=== PATIENT | female | born 1950 | race Caucasian/White ===

== ENCOUNTER → 2017-02-26 | Outpatient (CLI) | payer MEDICARE, OTHER ==
[~2017-02-26] MED LIST: OMEP20CA74 OR; ROSU5TAB5
[2017-02-26 08:43] LABS: Basophils # (auto) 0 uL; Basophils % (auto) 0.4 % (0.0-2.0); CONDITION Y; Eosinophils # (auto) 0.1 uL; Eosinophils % (auto) 2.8 % (0.0-7.0); Hematocrit 38.6 % (36.0-46.0); Hemoglobin 13.1 g/dL (12.2-16.2); Lymphocytes % (auto) 39.8 % (10.0-50.0); Mean Corpuscular Hemoglobin 32.4 pg (28.0-32.0); Mean Corpuscular Volume 95.1 fL (80.0-100.0); Mean Platelet Volume 9.5 fL (7.4-10.4); Monocytes # (auto) 0.4 uL; Monocytes % (auto) 8.6 % (0.0-12.0); Neutrophils # (auto) 2.5 uL; Neutrophils % (auto) 48.4 % (37.0-80.0); Platelet Count (auto) 217 10^3/uL (140-450); Red Cell Distribution Width 13.1 % (11.6-16.0); White Blood Cell 5.1 10^3/uL (4.4-10.8)
[2017-02-26 08:47] LABS: Urine Bilirubin Negative (Negative); Urine Color Yellow (Yellow); Urine Glucose Normal (Normal); Urine Ketone Negative (Negative); Urine Nitrite Negative (Negative); Urine RBC <1 /hpf (0 - 4); Urine Squamous Epithelial Cell FEW /hpf (<5); Urine Urobilinogen Normal (Negative)
[2017-02-26 08:48] LABS: Urine Blood 1+ /uL (Negative)
[2017-02-26 09:06] LABS: Albumin 3.7 g/dL (3.4-5.0); BUN/Creatinine Ratio 22.5; Bilirubin, Total 0.7 mg/dL (0.2-1.0); Potassium 3.8 mmol/L (3.5-5.1); Total Protein 7.2 g/dL (6.4-8.2)
== END | disposition home or self-care (01) ==
LOC: LAB 07:52
PROVIDERS: ATTEND Internal Medicine
DX: Z00.00 Encounter for general adult medical examination without abnormal findings (principal); I10 Essential (primary) hypertension; E78.2 Mixed hyperlipidemia; E55.9 Vitamin D deficiency, unspecified
CPT/HCPCS: 36415; 80053; 80061; 81001; 82306; 84443; 85025

== ENCOUNTER → 2018-01-25 | Outpatient (CLI) | payer MEDICARE, OTHER ==
[2018-01-25 09:31] LABS: Basophils # (auto) 0.1 uL; Basophils % (auto) 1.2 % (0.0-2.0); Eosinophils # (auto) 0.2 uL; Hematocrit 39.6 % (36.0-46.0); Hemoglobin 13.5 g/dL (12.2-16.2); Lymphocytes # (auto) 2.1 uL; Lymphocytes % (auto) 36.7 % (10.0-50.0); Monocytes # (auto) 0.6 uL; Monocytes % (auto) 10.4 % (0.0-12.0); Neutrophils # (auto) 2.8 uL; Neutrophils % (auto) 48.7 % (37.0-80.0); Nucleated Red Blood Cells % 0.1 %; Platelet Count (auto) 233 10^3/uL (140-450); Red Blood Cells 4.09 10^6/uL (4.0-5.20); Red Cell Distribution Width 12.7 % (11.8-14.3); White Blood Cell 5.8 10^3/uL (4.4-10.8)
[2018-01-25 10:23] LABS: Albumin 3.7 g/dL (3.4-5.0); BUN/Creatinine Ratio 18.7; Bilirubin, Total 0.5 mg/dL (0.2-1.0); Calcium 9.3 mg/dL (8.5-10.1); Potassium 4.3 mmol/L (3.5-5.1); Total Protein 7.3 g/dL (6.4-8.2)
== END | disposition home or self-care (01) ==
LOC: LAB 08:27
PROVIDERS: ATTEND Physician Assistant
DX: E78.00 Pure hypercholesterolemia, unspecified (principal); M41.115 Juvenile idiopathic scoliosis, thoracolumbar region; N18.3 Chronic kidney disease, stage 3 (moderate); M79.605 Pain in left leg
CPT/HCPCS: 36415; 80053; 80061; 85025

== ENCOUNTER → 2019-02-01 | Outpatient (CLI) | payer MEDICARE, OTHER ==
[2019-02-01 09:30] LABS: Basophils # (auto) 0 uL; Basophils % (auto) 1.1 % (0.0-2.0); Eosinophils # (auto) 0.1 uL; Eosinophils % (auto) 3.2 % (0.0-7.0); Hemoglobin 13.3 g/dL (12.2-16.2); Lymphocytes # (auto) 1.3 uL; Mean Corpuscular Hemoglobin 32.7 pg (28.0-32.0); Mean Corpuscular Volume 96.1 fL (80.0-100.0); Monocytes # (auto) 0.4 uL; Monocytes % (auto) 9.3 % (0.0-12.0); Neutrophils # (auto) 2.3 uL; Neutrophils % (auto) 54.4 % (37.0-80.0); Nucleated Red Blood Cells % 0.1 %; Platelet Count (auto) 227 10^3/uL (140-450); Red Blood Cells 4.06 10^6/uL (4.0-5.20); Red Cell Distribution Width 13.1 % (11.8-14.3); White Blood Cell 4.2 10^3/uL (4.4-10.8)
[2019-02-01 10:01] LABS: Albumin 3.9 g/dL (3.4-5.0); BUN/Creatinine Ratio 16.1; Bilirubin, Total 0.7 mg/dL (0.2-1.0); Calcium 9.3 mg/dL (8.5-10.1); Total Protein 7.5 g/dL (6.4-8.2)
== END | disposition home or self-care (01) ==
LOC: LAB 08:12
PROVIDERS: ATTEND Physician Assistant
DX: E78.00 Pure hypercholesterolemia, unspecified (principal); I12.9 Hypertensive chronic kidney disease with stage 1 through stage 4 chronic kidney disease, or unspecified chronic kidney disease; N18.3 Chronic kidney disease, stage 3 (moderate)
CPT/HCPCS: 36415; 80053; 80061; 85025

== ENCOUNTER 2019-02-28 08:42 | Day surgery (SDC) | payer MEDICARE, OTHER ==
[2019-02-24 10:50] LABS: Basophils # (auto) 0 uL; Basophils % (auto) 1.1 % (0.0-2.0); Eosinophils # (auto) 0.1 uL; Eosinophils % (auto) 2.4 % (0.0-7.0); Hematocrit 40.4 % (36.0-46.0); Hemoglobin 13.7 g/dL (12.2-16.2); Lymphocytes # (auto) 1.2 uL; Lymphocytes % (auto) 27.6 % (10.0-50.0); Mean Corpuscular Hemoglobin 32.8 pg (28.0-32.0); Mean Corpuscular Volume 96.6 fL (80.0-100.0); Monocytes # (auto) 0.4 uL; Monocytes % (auto) 8.4 % (0.0-12.0); Neutrophils # (auto) 2.7 uL; Neutrophils % (auto) 60.5 % (37.0-80.0); Nucleated Red Blood Cells % 0.1 %; Platelet Count (auto) 212 10^3/uL (140-450); Red Blood Cells 4.18 10^6/uL (4.0-5.20); White Blood Cell 4.4 10^3/uL (4.4-10.8)
[2019-02-24 11:03] LABS: INR 1.01 (0.9-1.15); Partial Thromboplastin Time 27.3 sec (23.64-32.05)
[~2019-02-28] VITALS: Ht 167.6 cm; Wt 72.1 kg
[~2019-02-28 08:42] MED LIST changes: -ROSU5TAB5; +ROSU5TAB5 PO
[2019-02-28] MEDS ORDERED: LIDOCAINE VISCOUS 2% 15ML UD ONE (08:46)
[2019-02-28] MEDS ORDERED: SODIUM CHLORIDE LOCK 10 ML ONE (08:46)
[2019-02-28] MEDS ORDERED: diphenhdrAMINE HCL 50 MG/1 ML VL ONE (08:46)
[2019-02-28] MEDS: MIDAZOLAM HCL 5 MG/ML-1ML VIAL ONE ×2 (10:29→10:32)
[2019-02-28] MEDS: fentaNYL CITRATE 100 MCG/2 ML VL ONE ×2 (10:29→10:32)
[2019-02-28 11:06] VITALS: BP 113/69
== END 2019-02-28 11:24 | disposition home or self-care (01) ==
LOC: GI 08:42
PROVIDERS: ATTEND Internal Medicine Gastroenterology
DX: K29.50 Unspecified chronic gastritis without bleeding (principal); K29.80 Duodenitis without bleeding; K21.0 Gastro-esophageal reflux disease with esophagitis; E78.00 Pure hypercholesterolemia, unspecified; E78.5 Hyperlipidemia, unspecified; Z85.89 Personal history of malignant neoplasm of other organs and systems; Z98.890 Other specified postprocedural states; Z88.8 Allergy status to other drugs, medicaments and biological substances; Z79.899 Other long term (current) drug therapy; Z78.0 Asymptomatic menopausal state
CPT/HCPCS: 36415; 43239; 43450; 85025; 85610; 85730; 88305; 88342; J2250; J3010; J7030

== ENCOUNTER 2019-09-09 17:19 | Emergency (ER) | payer MEDICARE, OTHER ==
[~2019-09-09] VITALS: Ht 167.6 cm; Wt 72.6 kg
[2019-09-09 17:30] VITALS: BP 151/77
[2019-09-09] MEDS ORDERED: FLUORESCEIN SOD 1 MG TEST STRIP LEFTEYE ONE (21:00)
[2019-09-09] MEDS ORDERED: TETRACAINE HCL 0.5% OPTH(EYE) SOLN 4ML EACHEYE ONE (21:00)
[2019-09-09] MEDS ORDERED: FLUORESCEIN SOD 1 MG TEST STRIP RIGHTEYE ONE (21:00)
== END 2019-09-09 21:19 | disposition home or self-care (01) ==
LOC: ER 17:28
DX: H43.392 Other vitreous opacities, left eye (principal); H43.812 Vitreous degeneration, left eye; H11.002 Unspecified pterygium of left eye; Z88.8 Allergy status to other drugs, medicaments and biological substances; Z79.899 Other long term (current) drug therapy

== ENCOUNTER → 2019-10-20 | Outpatient (CLI) | payer MEDICARE, OTHER ==
[2019-10-20 09:48] LABS: Basophils # (auto) 0.1 uL; Basophils % (auto) 1.4 % (0.0-2.0); Eosinophils # (auto) 0.2 uL; Eosinophils % (auto) 3.9 % (0.0-7.0); Hematocrit 40.3 % (36.0-46.0); Hemoglobin 13.6 g/dL (12.2-16.2); Lymphocytes # (auto) 1.3 uL; Lymphocytes % (auto) 26.7 % (10.0-50.0); Mean Corpuscular Hemoglobin 32.6 pg (28.0-32.0); Mean Corpuscular Hgb Conc. 33.8 g/dL (32.0-36.0); Mean Corpuscular Volume 96.4 fL (80.0-100.0); Monocytes # (auto) 0.5 uL; Monocytes % (auto) 10.6 % (0.0-12.0); Neutrophils # (auto) 2.9 uL; Neutrophils % (auto) 57.4 % (37.0-80.0); Nucleated Red Blood Cells % 0.1 %; Platelet Count (auto) 231 10^3/uL (140-450); Red Blood Cells 4.18 10^6/uL (4.0-5.20); Red Cell Distribution Width 12.8 % (11.8-14.3)
[2019-10-20 10:29] LABS: Albumin 3.9 g/dL (3.4-5.0); Calcium 9.5 mg/dL (8.5-10.1); Potassium 3.9 mmol/L (3.5-5.1)
[2019-10-20 10:34] LABS: BUN/Creatinine Ratio 19.8; Bilirubin, Total 0.6 mg/dL (0.2-1.0); Total Protein 7.6 g/dL (6.4-8.2)
== END | disposition home or self-care (01) ==
LOC: LAB 09:33
PROVIDERS: ATTEND Internal Medicine
DX: C50.912 Malignant neoplasm of unspecified site of left female breast (principal)
CPT/HCPCS: 36415; 80053; 83615; 85025; 86300

== ENCOUNTER → 2019-11-21 | Outpatient (CLI) | payer MEDICARE, OTHER ==
[~2019-11-21] VITALS: Ht 167.6 cm; Wt 76.2 kg
[~2019-11-21] MED LIST changes: +PANT40TA2 PO
== END | disposition home or self-care (01) ==
LOC: Rad HDHVI 08:36
PROVIDERS: ATTEND Internal Medicine Cardiovascular Disease
DX: Z01.810 Encounter for preprocedural cardiovascular examination (principal); E78.00 Pure hypercholesterolemia, unspecified; R07.9 Chest pain, unspecified; R00.2 Palpitations
CPT/HCPCS: 78452; 93017; 93306; 96374; A9500

== ENCOUNTER 2019-11-30 06:14 | Inpatient (IN) | payer MEDICARE, OTHER ==
[2019-11-28 09:46] LABS: Basophils # (auto) 0.1 10 ^3/uL (0-0.2); Basophils % (auto) 1.2 % (0.0-2.0); Eosinophils # (auto) 0.1 10 ^3/uL (0-0.8); Eosinophils % (auto) 2.5 % (0.0-7.0); Hematocrit 43.7 % (36.0-46.0); Hemoglobin 14.7 g/dL (12.2-16.2); Lymphocytes # (auto) 1.3 10 ^3/uL (0.4-5.4); Lymphocytes % (auto) 21.4 % (10.0-50.0); Mean Corpuscular Hemoglobin 32.3 pg (28.0-32.0); Mean Corpuscular Hgb Conc. 33.6 g/dL (32.0-36.0); Mean Corpuscular Volume 96.3 fL (80.0-100.0); Monocytes # (auto) 0.6 10 ^3/uL (0-1.3); Monocytes % (auto) 10.5 % (0.0-12.0); Neutrophils # (auto) 3.9 10 ^3/uL (1.6-8.6); Neutrophils % (auto) 64.4 % (37.0-80.0); Nucleated Red Blood Cells % 0.1 %; Platelet Count (auto) 256 10^3/uL (140-450); Red Blood Cells 4.53 10^6/uL (4.0-5.20); Red Cell Distribution Width 12.6 % (11.8-14.3)
[2019-11-28 09:50] LABS: Urine Bacteria NONE SEEN /hpf (None Seen); Urine Blood TRACE /uL (Negative); Urine Specific Gravity 1.003 (1.001-1.035); Urine WBC 1 /hpf (0 - 5)
[2019-11-28 09:57] LABS: Potassium 3.8 mmol/L (3.5-5.1)
[2019-11-28 10:05] LABS: Bilirubin, Total 0.8 mg/dL (0.2-1.0); Calcium 9.5 mg/dL (8.5-10.1); INR 1.14 (0.9-1.15); Partial Thromboplastin Time 29.3 sec (23.64-32.05)
[~2019-11-30] VITALS: Ht 167.6 cm; Wt 74.1 kg
[~2019-11-30 06:14] MED LIST changes: -OMEP20CA74 OR
[2019-11-30] MEDS ORDERED: ceFAZolin 1GM/50ML 50 ML IV ONE (06:30)
[2019-11-30] MEDS ORDERED: LIDOCAINE 1% HCL (LOCAL ANESTH.) INJ 20ML MDV ONE (07:08)
[2019-11-30] MEDS ORDERED: HYDROmorphone HCL 2 MG/ML VL ONE (07:12)
[2019-11-30] MEDS ORDERED: fentaNYL CITRATE 5 ML ONE (07:12)
[2019-11-30] MEDS ORDERED: fentaNYL CITRATE 100 MCG/2 ML VL ONE (07:12)
[2019-11-30] MEDS ORDERED: ONDANSETRON HCL 4 MG/2 ML VIAL ONE (07:13)
[2019-11-30] MEDS ORDERED: PROPOFOL 10 MG/ML 20 ML IV ONE (07:13)
[2019-11-30] MEDS ORDERED: SODIUM CHLORIDE LOCK 10 ML ONE (07:13)
[2019-11-30] MEDS ORDERED: ROCURONIUM 10MG/ML 10ML VIAL IV ONE (07:13)
[2019-11-30] MEDS ORDERED: MIDAZOLAM HCL 1MG/1ML-2 ML VIAL ONE (07:13)
[2019-11-30] MEDS ORDERED: HYDROmorphone HCL 2 MG/ML VL IV PRN ×2 (07:45→10:00)
[2019-11-30] MEDS ORDERED: MORPHINE SULFATE 4 MG/ML SYR/VIAL IV PRN (07:45)
[2019-11-30] MEDS ORDERED: fentaNYL CITRATE 100 MCG/2 ML VL IV PRN (07:45)
[2019-11-30] MEDS ORDERED: DOXAPRAM HCL 20 MG/ML 20ML VIAL INJ IV ONE (08:19)
[2019-11-30] MEDS ORDERED: POVIDONE IODINE 10 % TOPICAL OINT 30GM TOP ONE (09:06)
[2019-11-30] MEDS ORDERED: KETOROLAC TROMETH 15 mg/ml 1ML VL IV PRN (10:00)
--- NOTE | 2019-11-30 11:52 | NUR ---
RECEIVED REPORT FROM PACU. ROOM MADE READY.
--- NOTE | 2019-11-30 12:10 | NUR ---
RECEIVED PT IN TO ROOM 280B EASY TO AROUSE WHEN CHECKING DRESSING AND 4 TANYA DRAINS AND RETURNS TO RESTING WITH EYES CLOSED. DENIES ANY PAIN. FACE FREE OF ANY GRIMACE OR BROW FURROWING. B/P CUFF TO LEFT LOWER LEG. SCANT DRAINAGE TO TANYA DRAINS. ALCIDES WRAP AROUND CHEST. RESPIRATIONS EVEN UNLABORED.
[2019-11-30] MEDS: ONDANSETRON HCL 4 MG/2 ML VIAL IV PRN ×2 (13:59→19:00)
[2019-11-30] MEDS: D5W/SOD CHL 0.45%/KCL 20MEQ 1,000 ML IV SCH ×2 (14:00→20:00)
[2019-11-30] MEDS: ceFAZolin 1GM/50ML 50 ML IV SCH ×2 (14:20→22:04)
--- NOTE | 2019-11-30 15:10 | NUR ---
TANYA DRAINS X4 YIELDS SCANT. MEDICATED FOR NAUSEA WITH PRN ZOFRAN. MEDICATED WITH PRN IV DILAUDID TO CONTROL PAIN. IV FLUIDS HAVE BEEN INITIATED. IVPB ANCEF INFUSED ORDERED.
[2019-11-30 16:58] VITALS: BP 117/57
[2019-11-30 18:50] VITALS: BP 149/66
--- NOTE | 2019-11-30 19:00 | NUR ---
FULLY AWAKE. DENIES DISCOMFORT. C/O NAUSEA AFTER ATTEMPTING TO TAKE IN CLEAR LIQUID TRAY. MEDICATED WITH PRN ZOFRAN. TANYA DRAINS SECURED WITH SILK TAPE TO SKIN. SEQUENTIAL LEG COMPRESSORS REMOVED. STAND BY ASSIST PROVIDED ON FIRST AMBULATION TO BR. VOIDS. STABLE ON HER FEET. DISPLAYS GOOD COORDINATION. IS PROVIDED AND DEMONSTRATES USE. IV FLUIDS VIA PUMP CONTINUED. DR. REED CALLS. UPDATE GIVEN. PT HAS APPROPRIATE ORDERS FOR THIS EVENING. HE STATES WILL ROUND ON HER TOMORROW.
--- NOTE | 2019-11-30 19:55 | NUR ---
Opening Shift Note Assumed care of patient, awake and alert. No S/S of distress/SOB . patient 5/10 at a tolerable level. informed patient of pain medications available patient refused. Patient has favian wrap to upper torso dressing is Clean dry and intact. patient has 4 bertin drains that were not drained by dayshift rn. first drain 30ml, second drain 10ml, third drain 10ml, 4 drain has 30ml. SCD applied. Instructed on POC and to call for assist PRN, will continue to monitor for changes Q1hr and PRN. bed in low position and call light within reach.
[2019-11-30 22:00] VITALS: BP 136/66
--- NOTE | 2019-11-30 22:04 | NUR ---
patient educated on how to use IS patient verbalized understanding and was able to demonstrate.
[2019-12-01 05:00] VITALS: BP 143/66
[2019-12-01] MEDS: D5W/SOD CHL 0.45%/KCL 20MEQ 1,000 ML IV SCH (06:06)
--- NOTE | 2019-12-01 06:22 | NUR ---
bertin drain 1# 10ml 2# 5ml 3#5ml 4#20
[2019-12-01] MEDS: ceFAZolin 1GM/50ML 50 ML IV SCH ×2 (06:31→14:04)
--- NOTE | 2019-12-01 07:04 | NUR ---
SBAR REPORT GIVEN TO DAYSHIFT RN. PATIENT DRESSING IS CLEAN DRY AND INTACT. PATIENT TANYA DRAINS ALL INTACT. SEE I/O FOR TANYA DRAIN OUTPUT. PATIENT IV PATENT AND RUNNING ABX SCHEDULED, REPORTS NO PAIN TO IV SITE. BED IN LOW POSITION AND CALL LIGHT WITHIN REACH. DENIES SOB DISTRESS OR PAIN AT THE MOMENT.
[2019-12-01 09:23] VITALS: BP 147/72
[2019-12-01 12:20] VITALS: BP 145/64
--- NOTE | 2019-12-01 15:08 | NUR ---
TANYA DRAIN EDUCATION EDUCATED PATIENT ON EMPTYING TANYA DRAINS, AND TO MONITOR FLUID PER DRAIN. PATIENT VERBALIZED UNDERSTANDING AND RETURNED DEMONSTRATION. ALL QUESTIONS AND CONCERNS ANSWERED. EMPTIED TANYA DRAIN #1- 10ML SANGUINOUS FLUID #2- 15ML SANGUINOUS FLUID #3- 8ML SANGUINOUS FLUID #4- 8ML SANGUINOUS FLUIDS PATIENT TOLERATED WELL
[2019-12-01 16:43] VITALS: BP 160/71
== END 2019-12-01 17:15 | disposition home or self-care (01) | DRG 581 ==
LOC: SUR 06:14 → TELE-WESTW 12:12 → WEST WING 12-01 04:17
PROVIDERS: ADMIT Surgery; ATTEND Internal Medicine
PROC: 07B60ZZ Excision of Left Axillary Lymphatic, Open Approach (ICD-10-PCS; 2019-11-30)
PROC: 0HBT0ZZ Excision of Right Breast, Open Approach (ICD-10-PCS; 2019-11-30)
PROC: 0HTV0ZZ Resection of Bilateral Breast, Open Approach (ICD-10-PCS; principal; 2019-11-30 07:58)
DX: C50.912 Malignant neoplasm of unspecified site of left female breast (principal); E78.5 Hyperlipidemia, unspecified; K21.9 Gastro-esophageal reflux disease without esophagitis; Z79.899 Other long term (current) drug therapy
CPT/HCPCS: 36415; 80053; 81001; 85025; 85610; 85730; 86850; 86900; 86901; G0378; J0690; J2001; J2250; J2405; J2704

== ENCOUNTER → 2020-03-28 | Outpatient (CLI) | payer MEDICARE, OTHER ==
[2020-03-28 09:12] LABS: Basophils # (auto) 0.1 10 ^3/uL (0-0.2); Basophils % (auto) 1.3 % (0.0-2.0); Eosinophils # (auto) 0.2 10 ^3/uL (0-0.8); Hemoglobin 13.7 g/dL (12.2-16.2); Lymphocytes # (auto) 1.7 10 ^3/uL (0.4-5.4); Lymphocytes % (auto) 31.8 % (10.0-50.0); Mean Corpuscular Hemoglobin 31.7 pg (28.0-32.0); Mean Corpuscular Hgb Conc. 33.4 g/dL (32.0-36.0); Monocytes # (auto) 0.5 10 ^3/uL (0-1.3); Monocytes % (auto) 9.6 % (0.0-12.0); Neutrophils % (auto) 54.3 % (37.0-80.0); Nucleated Red Blood Cells % 0.1 %; Platelet Count (auto) 254 10^3/uL (140-450); Red Blood Cells 4.32 10^6/uL (4.0-5.20); Red Cell Distribution Width 13.7 % (11.8-14.3); White Blood Cell 5.5 10^3/uL (4.4-10.8)
[2020-03-28 10:42] LABS: Albumin 3.9 g/dL (3.4-5.0); Calcium 9.9 mg/dL (8.5-10.1)
[2020-03-28 10:46] LABS: BUN/Creatinine Ratio 15.3; Bilirubin, Total 0.5 mg/dL (0.2-1.0); Total Protein 7.8 g/dL (6.4-8.2)
== END | disposition home or self-care (01) ==
LOC: LAB 09:00
PROVIDERS: ATTEND Internal Medicine
DX: Z51.11 Encounter for antineoplastic chemotherapy (principal); C50.919 Malignant neoplasm of unspecified site of unspecified female breast
CPT/HCPCS: 36415; 80053; 83615; 85025; 86300

== ENCOUNTER → 2020-06-22 | Outpatient (CLI) | payer MEDICARE, OTHER ==
[2020-06-22 09:44] LABS: Basophils # (auto) 0.1 10 ^3/uL (0-0.2); Basophils % (auto) 1.3 % (0.0-2.0); Eosinophils # (auto) 0.1 10 ^3/uL (0-0.8); Eosinophils % (auto) 3.1 % (0.0-7.0); Hematocrit 38.4 % (36.0-46.0); Hemoglobin 13.1 g/dL (12.2-16.2); Lymphocytes # (auto) 1.5 10 ^3/uL (0.4-5.4); Lymphocytes % (auto) 32.5 % (10.0-50.0); Mean Corpuscular Hemoglobin 32.6 pg (28.0-32.0); Monocytes # (auto) 0.5 10 ^3/uL (0-1.3); Monocytes % (auto) 11.2 % (0.0-12.0); Neutrophils # (auto) 2.3 10 ^3/uL (1.6-8.6); Neutrophils % (auto) 51.9 % (37.0-80.0); Platelet Count (auto) 223 10^3/uL (140-450); White Blood Cell 4.5 10^3/uL (4.4-10.8)
[2020-06-22 09:55] LABS: Albumin 3.8 g/dL (3.4-5.0); Calcium 9.1 mg/dL (8.5-10.1)
[2020-06-22 09:59] LABS: Bilirubin, Total 0.7 mg/dL (0.2-1.0); Total Protein 7.3 g/dL (6.4-8.2)
== END | disposition home or self-care (01) ==
LOC: LAB 09:17
PROVIDERS: ATTEND Internal Medicine
DX: Z51.11 Encounter for antineoplastic chemotherapy (principal); C50.919 Malignant neoplasm of unspecified site of unspecified female breast
CPT/HCPCS: 36415; 80053; 83615; 85025; 86300

== ENCOUNTER → 2020-09-12 | Outpatient (CLI) | payer MEDICARE, OTHER ==
[2020-09-12 10:24] LABS: Basophils # (auto) 0.1 10 ^3/uL (0-0.2); Basophils % (auto) 1.5 % (0.0-2.0); Eosinophils # (auto) 0.2 10 ^3/uL (0-0.8); Eosinophils % (auto) 3.3 % (0.0-7.0); Hematocrit 38.7 % (36.0-46.0); Hemoglobin 13.3 g/dL (12.2-16.2); Lymphocytes # (auto) 1.5 10 ^3/uL (0.4-5.4); Lymphocytes % (auto) 29.5 % (10.0-50.0); Mean Corpuscular Hemoglobin 33.1 pg (28.0-32.0); Mean Corpuscular Hgb Conc. 34.2 g/dL (32.0-36.0); Mean Corpuscular Volume 96.8 fL (80.0-100.0); Monocytes # (auto) 0.5 10 ^3/uL (0-1.3); Monocytes % (auto) 9.5 % (0.0-12.0); Neutrophils # (auto) 2.9 10 ^3/uL (1.6-8.6); Neutrophils % (auto) 56.2 % (37.0-80.0); Platelet Count (auto) 248 10^3/uL (140-450); Red Cell Distribution Width 12.7 % (11.8-14.3); White Blood Cell 5.1 10^3/uL (4.4-10.8)
[2020-09-12 11:08] LABS: Potassium 3.8 mmol/L (3.5-5.1)
[2020-09-12 11:22] LABS: Albumin 3.9 g/dL (3.4-5.0); BUN/Creatinine Ratio 11.2; Bilirubin, Total 0.6 mg/dL (0.2-1.0); Calcium 9.4 mg/dL (8.5-10.1); Total Protein 7.6 g/dL (6.4-8.2)
== END | disposition home or self-care (01) ==
LOC: LAB 10:05
PROVIDERS: ATTEND Internal Medicine
DX: Z51.11 Encounter for antineoplastic chemotherapy (principal); C50.919 Malignant neoplasm of unspecified site of unspecified female breast; N18.30 Chronic kidney disease, stage 3 unspecified; E78.00 Pure hypercholesterolemia, unspecified; K21.9 Gastro-esophageal reflux disease without esophagitis; R13.10 Dysphagia, unspecified
CPT/HCPCS: 36415; 80053; 80061; 83615; 85025; 86300

== ENCOUNTER → 2021-03-14 | Outpatient (CLI) | payer MEDICARE, OTHER ==
[2021-03-14 16:24] LABS: Basophils # (auto) 0.1 10 ^3/uL (0-0.2); Eosinophils # (auto) 0.1 10 ^3/uL (0-0.8); Eosinophils % (auto) 2.9 % (0.0-7.0); Hemoglobin 12.8 g/dL (12.2-16.2); Lymphocytes # (auto) 1.2 10 ^3/uL (0.4-5.4); Lymphocytes % (auto) 28.9 % (10.0-50.0); Mean Corpuscular Hgb Conc. 35.6 g/dL (32.0-36.0); Mean Corpuscular Volume 95.6 fL (80.0-100.0); Monocytes # (auto) 0.5 10 ^3/uL (0-1.3); Neutrophils # (auto) 2.2 10 ^3/uL (1.6-8.6); Neutrophils % (auto) 53.2 % (37.0-80.0); Red Blood Cells 3.77 10^6/uL (4.0-5.20); Red Cell Distribution Width 13.3 % (11.8-14.3); White Blood Cell 4.2 10^3/uL (4.4-10.8)
[2021-03-14 17:40] LABS: Albumin 3.7 g/dL (3.4-5.0); Calcium 8.8 mg/dL (8.5-10.1)
[2021-03-14 17:47] LABS: BUN/Creatinine Ratio 18.8; Bilirubin, Total 0.4 mg/dL (0.2-1.0); Total Protein 7.2 g/dL (6.4-8.2)
== END | disposition home or self-care (01) ==
LOC: LAB 16:08
PROVIDERS: ATTEND Internal Medicine
DX: Z51.11 Encounter for antineoplastic chemotherapy (principal); C50.919 Malignant neoplasm of unspecified site of unspecified female breast
CPT/HCPCS: 36415; 80053; 83615; 85025; 85049; 86300; 86304

== ENCOUNTER → 2021-04-24 | Outpatient (CLI) | payer MEDICARE, OTHER ==
[2021-04-24 16:00] LABS: Basophils # (auto) 0 10 ^3/uL (0-0.2); Basophils % (auto) 0.7 % (0.0-2.0); Eosinophils # (auto) 0.1 10 ^3/uL (0-0.8); Hematocrit 38.1 % (36.0-46.0); Hemoglobin 13.4 g/dL (12.2-16.2); Lymphocytes # (auto) 1.3 10 ^3/uL (0.4-5.4); Lymphocytes % (auto) 21.7 % (10.0-50.0); Mean Corpuscular Hemoglobin 33.6 pg (28.0-32.0); Mean Corpuscular Hgb Conc. 35.2 g/dL (32.0-36.0); Mean Corpuscular Volume 95.6 fL (80.0-100.0); Monocytes # (auto) 0.5 10 ^3/uL (0-1.3); Monocytes % (auto) 8.1 % (0.0-12.0); Neutrophils # (auto) 4.2 10 ^3/uL (1.6-8.6); Neutrophils % (auto) 67.5 % (37.0-80.0); Red Blood Cells 3.98 10^6/uL (4.0-5.20); White Blood Cell 6.2 10^3/uL (4.4-10.8)
[2021-04-24 16:36] LABS: Albumin 3.6 g/dL (3.4-5.0); Amylase 24 U/L (25-115); Anion Gap 7 (5-15); Blood Urea Nitrogen 15 mg/dL (7-18); Calcium 9.4 mg/dL (8.5-10.1); Carbon Dioxide 26 mmol/L (21-32); Chloride 108 mmol/L (98-107); Glucose 114 mg/dL (74-106); Lipase 117 U/L (73-393); Potassium 3.7 mmol/L (3.5-5.1); Sodium 141 mmol/L (136-145)
[2021-04-24 16:40] LABS: Alanine Aminotransferase 38 U/L (13-56); Alkaline Phosphatase 100 U/L (45-117); Aspartate Aminotransferase 25 U/L (15-37); BUN/Creatinine Ratio 15.2; Bilirubin, Direct < 0.1 mg/dL (0-0.2); Bilirubin, Total 0.4 mg/dL (0.2-1.0); GFR African American 71 mL/min; GFR Non-African American 58 mL/min; Total Protein 7.5 g/dL (6.4-8.2)
[2021-04-25 11:07] LABS: Hepatitis A Ab IgM Negative
[2021-04-25 11:24] LABS: Hepatitis B Surface Antigen Negative (Negative)
[2021-04-25 11:35] LABS: Hepatitis B Core IgM Negative
[2021-04-25 12:10] LABS: Hepatitis C Antibody Negative (Negative)
== END | disposition home or self-care (01) ==
LOC: LAB 15:36
PROVIDERS: ATTEND Nurse Practitioner Family
DX: R74.8 Abnormal levels of other serum enzymes (principal)
CPT/HCPCS: 36415; 80053; 80076; 82150; 83690; 85025; 86705; 86709; 86803; 87340

== ENCOUNTER 2021-08-30 12:05 | Inpatient (IN) | payer MEDICARE, OTHER ==
[~2021-08-30] VITALS: Ht 167.6 cm; Wt 80.8 kg
[2021-08-30 13:16] LABS: Basophils # (auto) 0.1 10 ^3/uL (0-0.2); Basophils % (auto) 2.3 % (0.0-2.0); Eosinophils # (auto) 0.2 10 ^3/uL (0-0.8); Eosinophils % (auto) 3.2 % (0.0-7.0); Hematocrit 38.1 % (36.0-46.0); Hemoglobin 12.7 g/dL (12.2-16.2); Lymphocytes # (auto) 1.3 10 ^3/uL (0.4-5.4); Mean Corpuscular Hemoglobin 32.1 pg (28.0-32.0); Mean Corpuscular Hgb Conc. 33.5 g/dL (32.0-36.0); Mean Corpuscular Volume 95.9 fL (80.0-100.0); Monocytes # (auto) 0.4 10 ^3/uL (0-1.3); Monocytes % (auto) 7.2 % (0.0-12.0); Neutrophils # (auto) 3.8 10 ^3/uL (1.6-8.6); Neutrophils % (auto) 65.3 % (37.0-80.0); Nucleated Red Blood Cells % 0.1 %; Red Blood Cells 3.97 10^6/uL (4.0-5.20); White Blood Cell 5.9 10^3/uL (4.4-10.8)
[2021-08-30 13:33] LABS: Albumin 3.6 g/dL (3.4-5.0); Calcium 9.5 mg/dL (8.5-10.1); Magnesium 2.6 mg/dL (1.6-2.6); Potassium 3.4 mmol/L (3.5-5.1)
[2021-08-30 13:40] LABS: BUN/Creatinine Ratio 14.2; Bilirubin, Total 0.4 mg/dL (0.2-1.0); Total Protein 7.5 g/dL (6.4-8.2)
[2021-08-30] MEDS ORDERED: NITROGLYCERIN 0.4 MG SL TAB SL ONE (14:00)
[2021-08-30] MEDS ORDERED: MORPHINE SULFATE INJECTION 2 MG/ML SYRG IV PRN (15:00)
[2021-08-30] MEDS ORDERED: NITROGLYCERIN 0.4 MG SL TAB SL PRN (15:00)
[2021-08-30 17:39] VITALS: BP 122/81
[2021-08-30] MEDS ORDERED: LETR2.5T PO (18:00)
[2021-08-30 20:00] VITALS: BP 120/75
[2021-08-30] MEDS: SOD CHL 0.9%/ KCL 20MEQ 1,000 ML IV SCH (20:30)
[2021-08-30 22:00] VITALS: BP 125/75
[2021-08-30] MEDS: FAMOTIDINE (10MG/ML) 2ML VL IV SCH (23:13)
[2021-08-31] MEDS ORDERED: DOCUSATE SOD 100 MG CAP PO PRN
[2021-08-31] MEDS ORDERED: ONDANSETRON HCL 4 MG/2 ML VIAL IV PRN
[2021-08-31] MEDS ORDERED: ALUM & MAG HYDROX-SIMETH LIQ(MAALOX) 30 ML PO PRN
[2021-08-31] MEDS ORDERED: LORazepam 0.5 MG TAB PO PRN
[2021-08-31] MEDS ORDERED: LABETALOL HCL 5 MG/ML 4ML SYRINGE IV PRN
[2021-08-31] MEDS ORDERED: HYDROcodone-ACET 5/325MG TAB PO PRN
[2021-08-31] MEDS ORDERED: ACETAMINOPHEN 325 MG TAB PO PRN
[2021-08-31] MEDS ORDERED: NITROGLYCERIN 0.4 MG SL TAB SL PRN
[2021-08-31] MEDS ORDERED: MORPHINE SULFATE INJECTION 2 MG/ML SYRG IV PRN ×2
[2021-08-31 05:00] VITALS: BP 128/75
[2021-08-31 06:50] LABS: Basophils # (auto) 0 10 ^3/uL (0-0.2); Basophils % (auto) 0.9 % (0.0-2.0); Eosinophils # (auto) 0.2 10 ^3/uL (0-0.8); Eosinophils % (auto) 3.1 % (0.0-7.0); Hemoglobin 11.9 g/dL (12.2-16.2); Lymphocytes # (auto) 1.3 10 ^3/uL (0.4-5.4); Lymphocytes % (auto) 25.1 % (10.0-50.0); Mean Corpuscular Hemoglobin 32.5 pg (28.0-32.0); Mean Corpuscular Volume 95.5 fL (80.0-100.0); Monocytes # (auto) 0.5 10 ^3/uL (0-1.3); Monocytes % (auto) 10.4 % (0.0-12.0); Neutrophils % (auto) 60.5 % (37.0-80.0); Red Blood Cells 3.66 10^6/uL (4.0-5.20); Red Cell Distribution Width 14.3 % (11.8-14.3)
[2021-08-31 07:05] LABS: INR 1.08 (0.9-1.15); Partial Thromboplastin Time 26.5 sec (23.6-33.0)
[2021-08-31 07:07] LABS: Albumin 3.3 g/dL (3.4-5.0); Calcium 8.7 mg/dL (8.5-10.1); Uric Acid 5.7 mg/dL (2.6-6.0)
[2021-08-31 07:13] LABS: BUN/Creatinine Ratio 14.5; Bilirubin, Total 0.5 mg/dL (0.2-1.0); Phosphorus 2.9 mg/dL (2.5-4.90); Total Protein 6.7 g/dL (6.4-8.2)
[2021-08-31 08:50] VITALS: BP 139/76
[2021-08-31] MEDS: FAMOTIDINE (10MG/ML) 2ML VL IV SCH ×2 (09:34→22:04)
[2021-08-31] MEDS: ASPirin 81 mg TAB PO SCH (09:34)
[2021-08-31] MEDS ORDERED: NIFEdipine ER 30 MG TAB PO SCH (10:00)
[2021-08-31] MEDS ORDERED: ENOXAPARIN SOD 40 MG/0.4 ML SYRINGE SC SCH (10:00)
[2021-08-31] MEDS ORDERED: ATORVASTATIN 20 MG TAB PO ONE (10:30)
[2021-08-31 10:49] LABS: Cholesterol 178 mg/dL (< 200); HDL Cholesterol 45 mg/dL (40-59); LDL Cholesterol 116 mg/dL (< 100); Triglycerides 124 mg/dL (< 150)
[2021-08-31] MEDS ORDERED: IOHEXOL 350 MG/ML 100ML IJ ONE (10:57)
[2021-08-31 13:00] VITALS: BP 141/85
[2021-08-31] MEDS ORDERED: ENOXAPARIN SOD 40 MG/0.4 ML SYRINGE SC ONE (15:30)
[2021-08-31] MEDS: SODIUM CHLORIDE 0.9% 1,000 ML IV SCH ×2 (16:05)
[2021-08-31] MEDS: SOD CHL 0.9%/ KCL 20MEQ 1,000 ML IV SCH (16:05)
[2021-08-31 16:54] VITALS: BP 121/73
[2021-08-31 20:00] VITALS: BP 118/70
[2021-08-31 22:00] VITALS: BP 118/70
[2021-08-31] MEDS ORDERED: ATORVASTATIN 20 MG TAB PO SCH (22:00)
[2021-09-01] MEDS: ENOXAPARIN SOD 80 MG/0.8ML SYRINGE SC SCH ×2 (04:21→16:28)
[2021-09-01 05:00] VITALS: BP 141/73
[2021-09-01] MEDS: ASPirin 81 mg TAB PO SCH (08:57)
[2021-09-01] MEDS: FAMOTIDINE (10MG/ML) 2ML VL IV SCH ×2 (08:58→21:29)
[2021-09-01 09:00] VITALS: BP 127/69
[2021-09-01] MEDS: SODIUM CHLORIDE 0.9% 1,000 ML IV SCH (09:01)
[2021-09-01 10:48] VITALS: BP 127/69
[2021-09-01 13:00] VITALS: BP 138/78
[2021-09-01 17:00] VITALS: BP 138/70
[2021-09-01 22:00] VITALS: BP 138/66
[2021-09-02] MEDS: ENOXAPARIN SOD 80 MG/0.8ML SYRINGE SC SCH (03:05)
[2021-09-02 03:53] LABS: Urine Bacteria NONE SEEN /hpf (None Seen); Urine Blood TRACE /uL (Negative); Urine WBC 2 /hpf (0 - 5)
[2021-09-02 04:02] LABS: Alcohol, Urine < 3.0 mg/dL (0-10); Amphetamine Screen, Urine NEGATIVE (NEGATIVE); Barbiturate Scree,Urine NEGATIVE (NEGATIVE); Benzodiazephine Screen, Urine NEGATIVE (NEGATIVE); Cannabinoid Screen, Urine NEGATIVE (NEGATIVE); Cocaine Screen, Urine NEGATIVE (NEGATIVE); Opiate Scree,Urine NEGATIVE (NEGATIVE); Phencyclidine Screen, Urine NEGATIVE (NEGATIVE)
[2021-09-02 05:00] VITALS: BP 91/50
[2021-09-02 09:00] VITALS: BP 135/79
[2021-09-02] MEDS: ASPirin 81 mg TAB PO SCH (09:14)
[2021-09-02] MEDS: FAMOTIDINE (10MG/ML) 2ML VL IV SCH ×2 (09:14→22:00)
[2021-09-02 13:00] VITALS: BP 116/74
[2021-09-02 17:00] VITALS: BP 132/73
[2021-09-02 20:00] VITALS: BP 139/76
[2021-09-02] MEDS: APIXABAN 5 MG TAB PO SCH (23:34)
[2021-09-03 08:00] VITALS: BP 127/68
[2021-09-03 09:00] VITALS: BP 127/81
[2021-09-03] MEDS: ASPirin 81 mg TAB PO SCH (10:00)
[2021-09-03] MEDS: APIXABAN 5 MG TAB PO SCH (10:01)
[2021-09-03] MEDS: FAMOTIDINE (10MG/ML) 2ML VL IV SCH (10:01)
[2021-09-03 12:17] VITALS: BP 149/80
[2021-09-03 12:22] VITALS: BP 149/80
[2021-09-09] MEDS ORDERED: APIXABAN 5 MG TAB PO SCH (22:00)
== END 2021-09-03 14:50 | disposition home or self-care (01) | DRG 175 ==
LOC: ER 12:05 → EDBD 12:05 → TELE 14:54 → TELE-WESTW 17:07
PROVIDERS: ADMIT Hospitalist; ATTEND Family Medicine
DX: I26.99 Other pulmonary embolism without acute cor pulmonale (principal); N17.0 Acute kidney failure with tubular necrosis; E66.9 Obesity, unspecified; E78.00 Pure hypercholesterolemia, unspecified; E78.5 Hyperlipidemia, unspecified; E87.6 Hypokalemia; K21.9 Gastro-esophageal reflux disease without esophagitis; K29.70 Gastritis, unspecified, without bleeding; Z20.822 Contact with and (suspected) exposure to COVID-19; R91.1 Solitary pulmonary nodule; I12.9 Hypertensive chronic kidney disease with stage 1 through stage 4 chronic kidney disease, or unspecified chronic kidney disease; N18.31 Chronic kidney disease, stage 3a; Z68.28 Body mass index [BMI] 28.0-28.9, adult; Z80.0 Family history of malignant neoplasm of digestive organs; Z83.3 Family history of diabetes mellitus; Z85.3 Personal history of malignant neoplasm of breast; Z86.16 Personal history of COVID-19; Z90.13 Acquired absence of bilateral breasts and nipples; Z79.899 Other long term (current) drug therapy
CPT/HCPCS: 36415; 71045; 71275; 80053; 80061; 80307; 81001; 82306; 82607; 83036; 83735; 83880; 84100; 84443; 84484; 84550; 85025; 85379; 85610; 85730; 87040; 87086; 87426; 93005; 93306; 93970; 96361; 96374; G0378; J3490

== ENCOUNTER → 2021-09-20 | Outpatient (CLI) | payer MEDICARE, OTHER ==
[~2021-09-20] MED LIST changes: +LETR2.5T PO
[2021-09-20 11:10] LABS: Albumin 3.5 g/dL (3.4-5.0); Bilirubin, Direct 0.1 mg/dL (0-0.2); Bilirubin, Total 0.5 mg/dL (0.2-1.0); Total Protein 7.1 g/dL (6.4-8.2); Urine Bacteria NONE SEEN /hpf (None Seen); Urine Blood 1+ /uL (Negative); Urine Specific Gravity 1.006 (1.001-1.035); Urine WBC <1 /hpf (0 - 5)
== END | disposition home or self-care (01) ==
LOC: LAB 10:10
PROVIDERS: ATTEND Nurse Practitioner Family
DX: R74.8 Abnormal levels of other serum enzymes (principal); M54.50 Low back pain, unspecified
CPT/HCPCS: 36415; 80076; 81001

== ENCOUNTER 2021-09-25 11:59 | Emergency (ER) | payer MEDICARE, OTHER ==
[~2021-09-25] VITALS: Ht 167.6 cm; Wt 76.2 kg
[2021-09-25 12:39] LABS: Urine Bacteria NONE SEEN /hpf (None Seen); Urine Blood 1+ /uL (Negative); Urine Specific Gravity 1.002 (1.001-1.035); Urine WBC 1 /hpf (0 - 5)
[2021-09-25 13:32] LABS: Albumin 3.9 g/dL (3.4-5.0); BUN/Creatinine Ratio 15.2; Calcium 9.8 mg/dL (8.5-10.1); Potassium 3.7 mmol/L (3.5-5.1)
[2021-09-25 13:35] LABS: Bilirubin, Total 0.6 mg/dL (0.2-1.0); Total Protein 7.8 g/dL (6.4-8.2)
[2021-09-25 15:57] LABS: Basophils # (auto) 0.1 10 ^3/uL (0-0.2); Basophils % (auto) 0.8 % (0.0-2.0); Eosinophils # (auto) 0.2 10 ^3/uL (0-0.8); Eosinophils % (auto) 2.3 % (0.0-7.0); Hematocrit 40.3 % (36.0-46.0); Hemoglobin 13.4 g/dL (12.2-16.2); Lymphocytes # (auto) 1.4 10 ^3/uL (0.4-5.4); Lymphocytes % (auto) 21.3 % (10.0-50.0); Mean Corpuscular Hemoglobin 32.1 pg (28.0-32.0); Mean Corpuscular Hgb Conc. 33.3 g/dL (32.0-36.0); Mean Corpuscular Volume 96.4 fL (80.0-100.0); Monocytes # (auto) 0.6 10 ^3/uL (0-1.3); Monocytes % (auto) 8.9 % (0.0-12.0); Neutrophils # (auto) 4.5 10 ^3/uL (1.6-8.6); Neutrophils % (auto) 66.7 % (37.0-80.0); Nucleated Red Blood Cells % 0.1 %; Red Blood Cells 4.18 10^6/uL (4.0-5.20); Red Cell Distribution Width 14.2 % (11.8-14.3); White Blood Cell 6.7 10^3/uL (4.4-10.8)
[2021-09-25] MEDS ORDERED: ACETAMINOPHEN 500 MG TAB PO ONE (18:45)
[2021-09-25] MEDS ORDERED: METR500T PO (22:48)
[2021-09-25] MEDS ORDERED: CIPR-173 PO (22:48)
[2021-09-25] MEDS ORDERED: PERCOT PO (23:02)
[2021-09-25] MEDS ORDERED: OXYCODONE W/ ACETAMINOPHEN 5/325MG TABLET ONE (23:05)
[2021-09-25] MEDS ORDERED: OXYCODONE W/ ACETAMINOPHEN 5/325MG TABLET PO ONE (23:15)
[2021-09-25 23:40] VITALS: BP 153/72
== END 2021-09-25 23:56 | disposition home or self-care (01) ==
LOC: ER 11:59
DX: K57.32 Diverticulitis of large intestine without perforation or abscess without bleeding (principal); E78.5 Hyperlipidemia, unspecified; R07.9 Chest pain, unspecified; Z79.899 Other long term (current) drug therapy; Z88.8 Allergy status to other drugs, medicaments and biological substances
CPT/HCPCS: 36415; 71045; 74176; 80053; 81001; 85025; 93005

== ENCOUNTER → 2021-11-26 | Outpatient (CLI) | payer MEDICARE, OTHER ==
[~2021-11-26] MED LIST changes: +CIPR-173 PO; +METR500T PO
[2021-11-26 14:26] LABS: Basophils # (auto) 0.1 10 ^3/uL (0-0.2); Basophils % (auto) 1.1 % (0.0-2.0); Eosinophils # (auto) 0.1 10 ^3/uL (0-0.8); Eosinophils % (auto) 2.5 % (0.0-7.0); Hematocrit 37.8 % (36.0-46.0); Hemoglobin 13.1 g/dL (12.2-16.2); Lymphocytes # (auto) 1.1 10 ^3/uL (0.4-5.4); Lymphocytes % (auto) 19.2 % (10.0-50.0); Mean Corpuscular Hemoglobin 32.8 pg (28.0-32.0); Mean Corpuscular Hgb Conc. 34.8 g/dL (32.0-36.0); Mean Corpuscular Volume 94.2 fL (80.0-100.0); Monocytes # (auto) 0.5 10 ^3/uL (0-1.3); Monocytes % (auto) 8.3 % (0.0-12.0); Neutrophils % (auto) 68.9 % (37.0-80.0); Red Blood Cells 4.01 10^6/uL (4.0-5.20); White Blood Cell 5.8 10^3/uL (4.4-10.8)
[2021-11-26 14:54] LABS: Albumin 3.9 g/dL (3.4-5.0); Calcium 9.3 mg/dL (8.5-10.1); Potassium 3.8 mmol/L (3.5-5.1)
[2021-11-26 14:58] LABS: BUN/Creatinine Ratio 17.9; Bilirubin, Total 0.5 mg/dL (0.2-1.0); Total Protein 7.3 g/dL (6.4-8.2)
== END | disposition home or self-care (01) ==
LOC: LAB 14:14
PROVIDERS: ATTEND Internal Medicine
DX: C50.919 Malignant neoplasm of unspecified site of unspecified female breast (principal); Z51.11 Encounter for antineoplastic chemotherapy
CPT/HCPCS: 36415; 80053; 83615; 85025; 86300

== ENCOUNTER → 2021-11-28 | Outpatient (CLI) | payer MEDICARE, OTHER ==
[~2021-11-28] VITALS: Ht 167.6 cm; Wt 76.2 kg
[~2021-11-28] MED LIST changes: +ADENOSINE 64 MG in GIVE UN-DILUTED 0 ML IV STA
== END | disposition home or self-care (01) ==
LOC: XYW 07:51
PROVIDERS: ATTEND Internal Medicine
DX: I10 Essential (primary) hypertension (principal); R07.89 Other chest pain; R68.84 Jaw pain; I26.99 Other pulmonary embolism without acute cor pulmonale; M41.9 Scoliosis, unspecified
CPT/HCPCS: 78452; 93017; A9500; J0153

== ENCOUNTER → 2022-05-26 | Outpatient (CLI) | payer MEDICARE, OTHER ==
[~2022-05-26] MED LIST changes: -ADENOSINE 64 MG in GIVE UN-DILUTED 0 ML IV STA
[2022-05-26 11:54] LABS: Basophils # (auto) 0.1 10 ^3/uL (0-0.2); Basophils % (auto) 1.2 % (0.0-2.0); Eosinophils # (auto) 0.2 10 ^3/uL (0-0.8); Eosinophils % (auto) 2.3 % (0.0-7.0); Hematocrit 39.1 % (36.0-46.0); Hemoglobin 13.3 g/dL (12.2-16.2); Lymphocytes # (auto) 1.6 10 ^3/uL (0.4-5.4); Lymphocytes % (auto) 23.6 % (10.0-50.0); Mean Corpuscular Hemoglobin 32.4 pg (28.0-32.0); Mean Corpuscular Hgb Conc. 33.9 g/dL (32.0-36.0); Mean Corpuscular Volume 95.5 fL (80.0-100.0); Monocytes # (auto) 0.6 10 ^3/uL (0-1.3); Monocytes % (auto) 8.2 % (0.0-12.0); Neutrophils # (auto) 4.4 10 ^3/uL (1.6-8.6); Neutrophils % (auto) 64.7 % (37.0-80.0); Nucleated Red Blood Cells % 0.1 %; Red Cell Distribution Width 13.1 % (11.8-14.3); White Blood Cell 6.9 10^3/uL (4.4-10.8)
[2022-05-26 12:57] LABS: Potassium 5.3 mmol/L (3.5-5.1)
[2022-05-26 13:53] LABS: BUN/Creatinine Ratio 13.3
[2022-05-26 13:54] LABS: Albumin 3.6 g/dL (3.4-5.0); Calcium 9.5 mg/dL (8.5-10.1); Total Protein 7.4 g/dL (6.4-8.2)
== END | disposition home or self-care (01) ==
LOC: LAB 11:12
PROVIDERS: ATTEND Internal Medicine
DX: C50.919 Malignant neoplasm of unspecified site of unspecified female breast (principal); Z51.11 Encounter for antineoplastic chemotherapy
CPT/HCPCS: 36415; 80053; 83615; 85025; 86300

== ENCOUNTER → 2022-08-18 | Outpatient (CLI) | payer MEDICARE, OTHER | END | disposition home or self-care (01) | LOC: XYW 07:41 | PROVIDERS: ATTEND Internal Medicine | DX: M54.2 Cervicalgia (principal); I10 Essential (primary) hypertension | CPT/HCPCS: 93886 ==

== ENCOUNTER → 2022-09-18 | Outpatient (CLI) | payer MEDICARE, OTHER | END | disposition home or self-care (01) | LOC: LAB 11:53 | PROVIDERS: ATTEND Nurse Practitioner Family | DX: I10 Essential (primary) hypertension (principal); E78.5 Hyperlipidemia, unspecified; Z00.00 Encounter for general adult medical examination without abnormal findings | CPT/HCPCS: 82270 ==

== ENCOUNTER → 2022-09-18 | Outpatient (CLI) | payer MEDICARE, OTHER | END | disposition home or self-care (01) | LOC: XYW 10:28 | PROVIDERS: ATTEND Internal Medicine | DX: I08.2 Rheumatic disorders of both aortic and tricuspid valves (principal); I10 Essential (primary) hypertension | CPT/HCPCS: 93306 ==

== ENCOUNTER → 2022-11-25 | Outpatient (CLI) | payer MEDICARE, OTHER ==
[2022-11-25 13:55] LABS: Basophils # (auto) 0.1 10 ^3/uL (0-0.2); Basophils % (auto) 1.1 % (0.0-2.0); Eosinophils # (auto) 0.2 10 ^3/uL (0-0.8); Eosinophils % (auto) 2.2 % (0.0-7.0); Hematocrit 38.4 % (36.0-46.0); Hemoglobin 13.2 g/dL (12.2-16.2); Lymphocytes # (auto) 1.8 10 ^3/uL (0.4-5.4); Mean Corpuscular Hemoglobin 32.5 pg (28.0-32.0); Mean Corpuscular Hgb Conc. 34.5 g/dL (32.0-36.0); Mean Corpuscular Volume 94.4 fL (80.0-100.0); Monocytes # (auto) 0.6 10 ^3/uL (0-1.3); Neutrophils % (auto) 65.7 % (37.0-80.0); Red Blood Cells 4.06 10^6/uL (4.0-5.20); Red Cell Distribution Width 13.3 % (11.8-14.3); White Blood Cell 7.7 10^3/uL (4.4-10.8)
[2022-11-25 14:29] LABS: Albumin 3.6 g/dL (3.4-5.0); BUN/Creatinine Ratio 21.5 (10.0-20.0); Calcium 8.9 mg/dL (8.5-10.1); Potassium 3.8 mmol/L (3.5-5.1)
[2022-11-25 14:33] LABS: Bilirubin, Total 0.6 mg/dL (0.2-1.0); Total Protein 7.3 g/dL (6.4-8.2)
== END | disposition home or self-care (01) ==
LOC: LAB 13:40
PROVIDERS: ATTEND Internal Medicine
DX: Z51.11 Encounter for antineoplastic chemotherapy (principal); C50.919 Malignant neoplasm of unspecified site of unspecified female breast
CPT/HCPCS: 36415; 80053; 83615; 85025; 86300

== ENCOUNTER → 2023-08-24 | Outpatient (CLI) | payer MEDICARE, OTHER ==
[2023-08-24 09:14] LABS: Basophils # (auto) 0.1 10 ^3/uL (0-0.2); Basophils % (auto) 1.1 % (0.0-2.0); Eosinophils # (auto) 0.1 10 ^3/uL (0-0.8); Eosinophils % (auto) 2.5 % (0.0-7.0); Hematocrit 39.5 % (36.0-46.0); Hemoglobin 13.4 g/dL (12.2-16.2); Lymphocytes # (auto) 1.3 10 ^3/uL (0.4-5.4); Lymphocytes % (auto) 23.9 % (10.0-50.0); Mean Corpuscular Hemoglobin 32.7 pg (28.0-32.0); Mean Corpuscular Hgb Conc. 33.9 g/dL (32.0-36.0); Mean Corpuscular Volume 96.6 fL (80.0-100.0); Monocytes # (auto) 0.4 10 ^3/uL (0-1.3); Monocytes % (auto) 7.9 % (0.0-12.0); Neutrophils # (auto) 3.5 10 ^3/uL (1.6-8.6); Neutrophils % (auto) 64.6 % (37.0-80.0); Red Blood Cells 4.09 10^6/uL (4.0-5.20); Red Cell Distribution Width 13.1 % (11.8-14.3); White Blood Cell 5.4 10^3/uL (4.4-10.8)
[2023-08-24 10:32] LABS: Alanine Aminotransferase 20 U/L (7-40); Albumin 4.5 g/dL (3.2-4.8); Alkaline Phosphatase 127 U/L (46-116); Anion Gap 7 (5-15); Aspartate Aminotransferase 20 U/L (13-40); BUN/Creatinine Ratio 9.6 (10.0-20.0); Blood Urea Nitrogen 8 mg/dL (9-23); Carbon Dioxide 27 mmol/L (20-30); Chloride 109 mmol/L (98-107); Glucose 93 mg/dL (74-106); LDL Cholesterol 99 mg/dL (< 100); Potassium 4.4 mmol/L (3.5-5.1); Sodium 143 mmol/L (136-145); Triglycerides 118 mg/dL (< 150)
[2023-08-24 10:33] LABS: Bilirubin, Total 0.7 mg/dL (0.2-1.0); Cholesterol 157 mg/dL (< 200); HDL Cholesterol 51 mg/dL (40-59); Total Protein 7.3 g/dL (5.7-8.2)
== END | disposition home or self-care (01) ==
LOC: LAB 08:58
DX: I10 Essential (primary) hypertension (principal); E11.9 Type 2 diabetes mellitus without complications; Z00.01 Encounter for general adult medical examination with abnormal findings; Z79.899 Other long term (current) drug therapy
CPT/HCPCS: 36415; 80053; 80061; 82274; 82306; 84439; 84443; 85025

== ENCOUNTER → 2023-11-24 | Outpatient (CLI) | payer MEDICARE, OTHER ==
[2023-11-24 08:57] LABS: Basophils # (auto) 0.1 10 ^3/uL (0-0.2); Basophils % (auto) 1.5 % (0.0-2.0); Eosinophils # (auto) 0.2 10 ^3/uL (0-0.8); Eosinophils % (auto) 3.7 % (0.0-7.0); Hemoglobin 12.9 g/dL (12.2-16.2); Lymphocytes # (auto) 1.8 10 ^3/uL (0.4-5.4); Lymphocytes % (auto) 31.2 % (10.0-50.0); Mean Corpuscular Hemoglobin 31.6 pg (28.0-32.0); Mean Corpuscular Hgb Conc. 33.1 g/dL (32.0-36.0); Mean Corpuscular Volume 95.5 fL (80.0-100.0); Monocytes # (auto) 0.6 10 ^3/uL (0-1.3); Neutrophils # (auto) 3.1 10 ^3/uL (1.6-8.6); Neutrophils % (auto) 53.6 % (37.0-80.0); Nucleated Red Blood Cells % 0.1 %; Red Blood Cells 4.08 10^6/uL (4.0-5.20); Red Cell Distribution Width 13.4 % (11.8-14.3); White Blood Cell 5.7 10^3/uL (4.4-10.8)
[2023-11-24 09:09] LABS: Alanine Aminotransferase 20 U/L (7-40); Albumin 4.2 g/dL (3.2-4.8); Alkaline Phosphatase 115 U/L (46-116); Anion Gap 7 (5-15); Aspartate Aminotransferase 18 U/L (13-40); BUN/Creatinine Ratio 13.8 (10.0-20.0); Bilirubin, Total 0.5 mg/dL (0.2-1.0); Blood Urea Nitrogen 12 mg/dL (9-23); Calcium 9.5 mg/dL (8.7-10.4); Carbon Dioxide 26 mmol/L (20-30); Chloride 108 mmol/L (98-107); Glucose 95 mg/dL (74-106); Potassium 3.9 mmol/L (3.5-5.1); Sodium 141 mmol/L (136-145); Total Protein 6.9 g/dL (5.7-8.2)
== END | disposition home or self-care (01) ==
LOC: LAB 08:21
PROVIDERS: ATTEND Physician Assistant
DX: C50.919 Malignant neoplasm of unspecified site of unspecified female breast (principal); Z51.11 Encounter for antineoplastic chemotherapy
CPT/HCPCS: 36415; 80053; 83615; 85025; 86300

== ENCOUNTER → 2024-09-05 | Outpatient (CLI) | payer MEDICARE, OTHER ==
[2024-09-05 10:11] LABS: Basophils # (auto) 0.1 10 ^3/uL (0-0.2); Basophils % (auto) 1.3 % (0.0-2.0); Eosinophils # (auto) 0.2 10 ^3/uL (0-0.8); Eosinophils % (auto) 3.9 % (0.0-7.0); Hematocrit 39.6 % (36.0-46.0); Hemoglobin 13.5 g/dL (12.2-16.2); Lymphocytes # (auto) 1.7 10 ^3/uL (0.4-5.4); Lymphocytes % (auto) 29.3 % (10.0-50.0); Mean Corpuscular Hemoglobin 32.7 pg (28.0-32.0); Mean Corpuscular Hgb Conc. 33.9 g/dL (32.0-36.0); Mean Corpuscular Volume 96.4 fL (80.0-100.0); Monocytes # (auto) 0.5 10 ^3/uL (0-1.3); Monocytes % (auto) 8.6 % (0.0-12.0); Neutrophils # (auto) 3.4 10 ^3/uL (1.6-8.6); Neutrophils % (auto) 56.9 % (37.0-80.0); Platelet Count (auto) 275 10^3/uL (140-450); Red Blood Cells 4.11 10^6/uL (4.0-5.20); Red Cell Distribution Width 13.5 % (11.8-14.3); White Blood Cell 5.9 10^3/uL (4.4-10.8)
[2024-09-05 10:59] LABS: Alanine Aminotransferase 21 U/L (7-40); Albumin 4.3 g/dL (3.2-4.8); Anion Gap 7 (5-15); Aspartate Aminotransferase 17 U/L (13-40); BUN/Creatinine Ratio 16.1 (10.0-20.0); Blood Urea Nitrogen 15 mg/dL (9-23); Calcium 10.4 mg/dL (8.7-10.4); Carbon Dioxide 27 mmol/L (20-31); Cholesterol 173 mg/dL (< 200); Glucose 97 mg/dL (74-106); HDL Cholesterol 46 mg/dL (40-59); LDL Cholesterol 99 mg/dL (< 100); Potassium 4.3 mmol/L (3.5-5.1); Sodium 142 mmol/L (136-145)
[2024-09-05 11:00] LABS: Bilirubin, Total 0.5 mg/dL (0.2-1.0); Total Protein 6.9 g/dL (5.7-8.2)
[2024-09-05 11:14] LABS: Alkaline Phosphatase 140 U/L (46-116); Chloride 108 mmol/L (98-107)
[2024-09-05 11:15] LABS: Triglycerides 229 mg/dL (< 150)
== END | disposition home or self-care (01) ==
LOC: LAB 09:32
PROVIDERS: ATTEND Nurse Practitioner Family
DX: I10 Essential (primary) hypertension (principal); E78.5 Hyperlipidemia, unspecified; Z79.899 Other long term (current) drug therapy
CPT/HCPCS: 36415; 80053; 80061; 82306; 84443; 85025

== ENCOUNTER 2024-10-12 16:33 | Emergency (ER) | payer MEDICARE, OTHER ==
[~2024-10-12] VITALS: Ht 167.6 cm; Wt 79.6 kg
--- NOTE | 2024-10-12 16:56 | ED.PDOC ---
HPI (NEURO) HPI Comments HPI: 74 y/o F, presents to the ED for CC of dizziness. 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 Patient relays, dizziness to feel as if the room was spinning. Patient comments on, associated symptoms of frontal headache. Patient denies any social history. Patient denies weakness, lightheadedness, or N/V/D. No other symptoms or modifying factors at this time. Denies any fall or injury or trauma. Patient's symptoms of dizziness has resolved spontaneously prior to arrival. Patient states having chronic intermittent neck pain. She had a carotid ultrasound done and she states it was normal. Patient is currently on two antibiotics status post right forehead skin cancer removal. VITALS: Temp: 97.5 RR: 18 02 sat : 95 HR: 88 BP:170/90 Past medical history: GERD, CHRONIC intermittent NECK PAIN, BREAST CANCER, SKIN CANCER, HLD Past surgical history: TONSILLECTOMY, BILATERAL MASTECTOMY, SKIN CANCER REMOVAL Social history: DENIES Medications: DOXYCYCLINE,EPIRIZOLE, ROLAPITANT Allergies: NKA HPI: Poor Historian. REVIEW OF SYSTEMS: CONSTITUTIONAL: Denies acute: fever, diaphoresis, chills, generalized weakness. HEAD: Denies acute: headache, photophobia Eyes: Denies acute: Double vision, vision loss, eye pain, eye discharge. EARS: Denies acute: tinnitus, hearing loss, ear discharge, ear pain, THROAT: Denies acute: sore throat, swelling, difficulty swallowing , pain with swallowing, change in voice. NECK: Denies acute: neck pain, neck swelling, stiff neck. HEART: Denies acute : chest pain, palpitations, LUNGS: Denies acute: SOB, wheezing, cough, hemoptysis ABDOMEN: Denies acute: abdominal pain, Nausea, Vomiting, diarrhea, melena , hematemesis, hematochezia SKIN: Denies acute: rash, redness, lesions, itchiness. EXTREMITIES: Denies acute: calf pain, numbness, tingling, weakness, denies pain in extremity. Denies acute: Low back pain. Neuro: Denies acute: focal neurological deficit, motor or sensory focal neurological deficit, tremors, seizure like activity, confusion, change in mental status, loss of bowel or bladder function, cauda equina like symptoms. : Denies acute: dysuria, hematuria, flank pain, increase in urinary frequency. PSYCH: Denies acute: hallucination, suicidal ideation, homicidal ideation. FEMALE: Denies acute: abnormal vaginal bleeding, foul odor, unusual discharge. PHYSICAL EXAM: General: no acute distress, awake and alert. Head: normocephalic, atraumatic. Neck: supple, trachea is midline, no swelling. Throat: Normal phonation. Eyes:, no erythema, no purulent discharge, no proptosis, no icterus. Heart: regular rate, regular rhythm, no significant murmur appreciated. Lungs: no apparent respiratory distress, Able to speak in full sentences. No wheezing, no rhonchi, no crackles. No stridors Clear to auscultation bilaterally. Abdomen: non tender to palpation, non distended, soft, no guarding, no rebound, + bowel sounds. Neuro: Awake, Alert, oriented to name, self, situation, follows commands GCS=15. Speech is normal. Skin: no petechia, no purpura, no cyanosis, non-pale, not jaundice. Lower extremities: --no - Pitting edema no deformity, no focal swelling, no calf TTP. Makes eye contact. moves all four extremities. Face: no apparent facial droop. Ambulating in the ED independently. Typically ambulates with a cane Ears: Normal appearing TM b/l, Stroke: finger to nose cerebellar testing is intact. No pronator drift. Symmetrical medical staffing coordinator muscle strength b/l PERRLA, EOM-I CN 2-12 are grossly intact, No nystagmus. No nuchal rigidity, Kernig's sign, Brudzinski's sign, no meningeal signs. Time Seen by MD: 16:38 Primary Care Provider: KINJAL GUTIÉRREZ Reviewed Notes: Nurses Notes, Medications, Allergies Information Source: Patient Mode of Arrival: Ambulatory Severity: Moderate Headache Severity: Moderate Timing: Days Duration: Since onset Prehospital treatment: None Headache Location: Frontal Symptoms: None During: Trauma: None History of: None Modifying factors: Nothing Associated Signs and Symptoms: Headache, Neck Pain Was a procedure done? Was a procedure done?: No X-Ray, Labs, Meds, VS Vital Signs Date Time Temp Pulse Resp B/P (MAP) Pulse Ox O2 Delivery O2 Flow Rate FiO2 10/12/24 16:38 97.5 88 18 170/90 (116) 95 Lab Test 10/12/24 17:01 Range/Units White Blood Count 6.7 4.4-10.8 10^3/uL Red Blood Count 4.03 4.0-5.20 10^6/uL Hemoglobin 13.2 12.2-16.2 g/dL Hematocrit 38.3 36.0-46.0 % Mean Corpuscular Volume 95.1 80.0-100.0 fL Mean Corpuscular Hemoglobin 32.6 H 28.0-32.0 pg Mean Corpuscular Hemoglobin Concent 34.3 32.0-36.0 g/dL Red Cell Distribution Width 13.0 11.8-14.3 % Platelet Count 271 140-450 10^3/uL Mean Platelet Volume 8.1 6.9-10.8 fL Neutrophils (%) (Auto) 72.9 37.0-80.0 % Lymphocytes (%) (Auto) 16.5 10.0-50.0 % Monocytes (%) (Auto) 7.5 0.0-12.0 % Eosinophils (%) (Auto) 2.3 0.0-7.0 % Basophils (%) (Auto) 0.8 0.0-2.0 % Neutrophils # (Auto) 4.9 1.6-8.6 10 ^3/uL Lymphocytes # (Auto) 1.1 0.4-5.4 10 ^3/uL Monocytes # (Auto) 0.5 0-1.3 10 ^3/uL Eosinophils # (Auto) 0.2 0-0.8 10 ^3/uL Basophils # (Auto) 0.1 0-0.2 10 ^3/uL Nucleated Red Blood Cells 0.1 % Sodium Level 141 136-145 mmol/L Potassium Level 4.1 3.5-5.1 mmol/L Chloride Level 108 H 98-107 mmol/L Carbon Dioxide Level 22 20-31 mmol/L Anion Gap 11 5-15 Blood Urea Nitrogen 16 9-23 mg/dL Creatinine 1.02 0.550-1.02 mg/dL Glomerular Filtration Rate Calc 57 >90 mL/min BUN/Creatinine Ratio 15.7 10.0-20.0 Serum Glucose 131 H 74-106 mg/dL Lactic Acid Level 1.5 0.4-2.0 mmol/L Calcium Level 10.1 8.7-10.4 mg/dL Total Bilirubin 0.4 0.2-1.0 mg/dL Aspartate Amino Transferase (AST) 18 13-40 U/L Alanine Aminotransferase (ALT) 18 7-40 U/L Alkaline Phosphatase 143 H 46-116 U/L Troponin I High Sensitivity < 3 L </=34 ng/L Total Protein 7.0 5.7-8.2 g/dL Albumin 4.7 3.2-4.8 g/dL Time of 1ST Reevaluation: 17:08 Reevaluation 1ST: Unchanged Time of 2ND Reevaluation: 18:45 Reevaluation 2ND: Resolved Patient Education/Counseling: Diagnosis, Treatment Family Education/Counseling: No Family Present Comments Patient presented with the above HPI.-- DIZZINESS---workup was initiated. patient was found with the above mentioned diagnosis. the following medications were ordered: NONE the following tests were ordered: HEAD CT, CERVICAL CT W/O CONTRAST, LABS, EKG Patient ED course and VS have been stabilized. Patient has been reassessed in the ED and remained in a stable condition. Pertinent incidental findings were discussed with the patient and/or family. Patient/family voices understanding and is agreeable with plan. Patient has been observed in the ED adequate length of time to insure improvement/stability. Escalation of care considered: Consideration of escalation to observation or admission Patient was DISCHARGED home in a stable condition. All the reports of any imaging studies that were ordered by myself were reviewed by myself. Departure 1 Departure Time of Disposition: 17:15 Impression: Primary Impression: Vertigo Disposition: 01 HOME / SELF CARE / HOMELESS Condition: Stable Additional Instructions: Additional discharge instructions: You MUST follow-up with your primary care/family doctor in 1 to 2 days. If you are unable to see your primary care/family doctor, please return to our emergency room for re-assessment and re-evaluation in 1 to 2 days. Return to the emergency room here in our facility or to the nearest ER [facility] if your symptoms change or worsen. CONSULTATIONS: you MUST Follow-up for consultation as soon as possible with: neurology and orthopedic spine surgery in 1-2 days.. Please call for appointment. You MUST call the consultants office yourself to make an appointment. You may need to arrange that through your insurance and/or your primary/family doctor. If you are unable to see the exchange consultant in 1 to 2 days, you must return to our emergency room (or any other ER of your choice) for re-assessment and re- evaluation. Adequate fluid hydration. Below is a copy of your radiological report for follow up: [address] [address] Ph: [phone] DIAGNOSTIC IMAGING Diagnostic Imaging Report : [id number] Signed PATIENT: SALVADOR ROSE ACCT: [id number] UNIT: [id number] : 1950 LOC: ER ROOM / BED: / AGE / SEX: 74 / F ADM STATUS: REG ER SERVICE 16 ORDERING PHYSICIAN: AMADOR HO DO PROCEDURE(s): CS2 - CERVICAL WITHOUT CONTRAST REASON: dizzy episode ORDER NUMBER(s): [id number], ACCESSION NUMBER(s): [id number] EXAM: CT Cervical Spine Without Intravenous Contrast CLINICAL INDICATION: dizzy episode TECHNIQUE: Axial computed tomography images of the cervical spine without intravenous contrast. This CT exam was performed using one or more of the following dose reduction techniques: automated exposure control, adjustment of the mA and/or kV according to patient size, and/or use of iterative reconstruction technique. CONTRAST: COMPARISON: None FINDINGS: VERTEBRAE: Degenerative facet arthropathy throughout the cervical spine. No acute fracture. DISCS/SPINAL CANAL/NEURAL FORAMINA: Degenerative disc disease throughout the cervical spine. SOFT TISSUES: Unremarkable. OTHER FINDINGS: . . . .. IMPRESSION: 1. No acute fracture. 2. Degenerative changes of the cervical spine as described. ATED BY: MANNY VENCES MD DICTATED DATE/TIME: 10/12/241741 SIGNED BY: MANNY VENCES MD SIGNED DATE/TIME: 10/12/241741 CC: [address] [address] Ph: [phone] DIAGNOSTIC IMAGING Diagnostic Imaging Report : [id number] Signed PATIENT: SALVADOR ROSE ACCT: [id number] UNIT: [id number] : 1950 LOC: ER ROOM / BED: / AGE / SEX: 74 / F ADM STATUS: REG ER SERVICE 16 ORDERING PHYSICIAN: AMADOR HO DO PROCEDURE(s): HWOCT - HEAD WITHOUT CONTRAST REASON: dizzy episode ORDER NUMBER(s): [id number], ACCESSION NUMBER(s): [id number] EXAM: CT HEAD WITHOUT CONTRAST HISTORY: dizzy episode COMPARISON: None TECHNIQUE: Axial images were obtained and reformatted in coronal and sagittal planes. All CT scans at this medical facility are performed using dose modulation techniques as appropriate to a performed exam including the following: Automated exposure control was utilized; adjustment of the MA and/or KV according to patient size; and use of iterative reconstruction technique. CT Dose: CTDI volume is 54.36 mGy. Dose-length product is 871.48 mGy*cm FINDINGS: Supratentorial Region: No evidence for large acute territorial ischemia. No intracranial hemorrhage is noted. Posterior Fossa: No acute abnormality. Brainstem: Unremarkable. Sellar/Suprasellar Region: Unremarkable. Ventricles, Cisterns, Sulci: Age-appropriate. Orbits: Unremarkable. Paranasal Sinuses: Unremarkable. Mastoid Air Cells: Unremarkable. Vasculature: Unremarkable. Bones/Soft Tissues: No acute abnormality. Other: None. IMPRESSION: 1. No CT evidence of acute intracranial abnormality. ATED BY: LYNN FRIAS MD DICTATED DATE/TIME: 10/12/241821 SIGNED BY: LYNN FRIAS MD SIGNED DATE/TIME: 10/12/241821 CC: Discharged With: Self Critical Care Note Critical Care Time?: No Heart Score Heart Score: Heart Score Response (Comments) Value History N/A 0 EKG N/A 0 Age N/A 0 Risk Factors N/A 0 Troponin N/A 0 Total 0 I personally scribed for AMADOR HO DO ([email or web address]) on 10/12/24 at 16:56. Electronically submitted by Dorys Jason ([email or web address]). I personally scribed for AMADOR HO DO ([email or web address]) on 10/12/24 at 17:02. Electronically submitted by Dorys Jason ([email or web address]). I personally scribed for AMADOR HO DO ([email or web address]) on 10/12/24 at 17:23. Electronically submitted by Dorys Jason ([email or web address]). I personally scribed for AMADOR HO DO ([email or web address]) on 10/12/24 at 17:25. Electronically submitted by Dorys Jason [email or web address]). AMADOR HO DO Oct 12, 2024 16:56
[2024-10-12 17:21] LABS: Basophils # (auto) 0.1 10 ^3/uL (0-0.2); Basophils % (auto) 0.8 % (0.0-2.0); Eosinophils # (auto) 0.2 10 ^3/uL (0-0.8); Eosinophils % (auto) 2.3 % (0.0-7.0); Hematocrit 38.3 % (36.0-46.0); Hemoglobin 13.2 g/dL (12.2-16.2); Lymphocytes # (auto) 1.1 10 ^3/uL (0.4-5.4); Lymphocytes % (auto) 16.5 % (10.0-50.0); Mean Corpuscular Hemoglobin 32.6 pg (28.0-32.0); Mean Corpuscular Hgb Conc. 34.3 g/dL (32.0-36.0); Mean Corpuscular Volume 95.1 fL (80.0-100.0); Monocytes # (auto) 0.5 10 ^3/uL (0-1.3); Monocytes % (auto) 7.5 % (0.0-12.0); Neutrophils # (auto) 4.9 10 ^3/uL (1.6-8.6); Neutrophils % (auto) 72.9 % (37.0-80.0); Nucleated Red Blood Cells % 0.1 %; Platelet Count (auto) 271 10^3/uL (140-450); Red Blood Cells 4.03 10^6/uL (4.0-5.20); White Blood Cell 6.7 10^3/uL (4.4-10.8)
[2024-10-12 17:36] LABS: Alanine Aminotransferase 18 U/L (7-40); Albumin 4.7 g/dL (3.2-4.8); Alkaline Phosphatase 143 U/L (46-116); Anion Gap 11 (5-15); Aspartate Aminotransferase 18 U/L (13-40); BUN/Creatinine Ratio 15.7 (10.0-20.0); Bilirubin, Total 0.4 mg/dL (0.2-1.0); Blood Urea Nitrogen 16 mg/dL (9-23); Calcium 10.1 mg/dL (8.7-10.4); Carbon Dioxide 22 mmol/L (20-31); Chloride 108 mmol/L (98-107); Glucose 131 mg/dL (74-106); Potassium 4.1 mmol/L (3.5-5.1); Sodium 141 mmol/L (136-145)
--- NOTE | 2024-10-12 17:44 | DVH ---
EXAM: CT Cervical Spine Without Intravenous Contrast CLINICAL INDICATION: dizzy episode TECHNIQUE: Axial computed tomography images of the cervical spine without intravenous contrast. Thi s CT exam was performed using one or more of the following dose reduction techniques: automated expo sure control, adjustment of the mA and/or kV according to patient size, and/or use of iterative recon struction technique. CONTRAST: COMPARISON: None FINDINGS: VERTEBRAE: Degenerative facet arthropathy throughout the cervical spine. No acute fracture. DISCS/SPINAL CANAL/NEURAL FORAMINA: Degenerative disc disease throughout the cervical spine. SOFT TISSUES: Unremarkable. OTHER FINDINGS: . . . .. IMPRESSION: 1. No acute fracture. 2. Degenerative changes of the cervical spine as described.
--- NOTE | 2024-10-12 18:25 | DVH ---
EXAM: CT HEAD WITHOUT CONTRAST HISTORY: dizzy episode COMPARISON: None TECHNIQUE: Axial images were obtained and reformatted in coronal and sagittal planes. All CT scans at this medical facility are performed using dose modulation techniques as appropriate t o a performed exam including the following: Automated exposure control was utilized; adjustment of th e MA and/or KV according to patient size; and use of iterative reconstruction technique. CT Dose: CTDI volume is 54.36 mGy. Dose-length product is 871.48 mGy*cm FINDINGS: Supratentorial Region: No evidence for large acute territorial ischemia. No intracranial hemorrhage is noted. Posterior Fossa: No acute abnormality. Brainstem: Unremarkable. Sellar/Suprasellar Region: Unremarkable. Ventricles, Cisterns, Sulci: Age-appropriate. Orbits: Unremarkable. Paranasal Sinuses: Unremarkable. Mastoid Air Cells: Unremarkable. Vasculature: Unremarkable. Bones/Soft Tissues: No acute abnormality. Other: None. IMPRESSION: 1. No CT evidence of acute intracranial abnormality.
[2024-10-12 19:21] VITALS: BP 176/83; PULSE 87; RESP 18; TEMP 99.1; O2SAT 94
== END 2024-10-12 19:23 | disposition home or self-care (01) ==
LOC: ER 16:33
DX: R42 Dizziness and giddiness (principal); K21.9 Gastro-esophageal reflux disease without esophagitis; R51.9 Headache, unspecified; E78.5 Hyperlipidemia, unspecified; Z85.3 Personal history of malignant neoplasm of breast; Z85.828 Personal history of other malignant neoplasm of skin; Z90.89 Acquired absence of other organs
CPT/HCPCS: 36415; 70450; 72125; 80053; 82947; 83605; 84484; 85025

== ENCOUNTER → 2024-11-21 | Outpatient (CLI) | payer MEDICARE, OTHER ==
[2024-11-21 10:28] LABS: Basophils # (auto) 0.1 10 ^3/uL (0-0.2); Basophils % (auto) 1.3 % (0.0-2.0); Eosinophils # (auto) 0.2 10 ^3/uL (0-0.8); Eosinophils % (auto) 3.4 % (0.0-7.0); Hemoglobin 13.2 g/dL (12.2-16.2); Lymphocytes # (auto) 1.4 10 ^3/uL (0.4-5.4); Lymphocytes % (auto) 26.3 % (10.0-50.0); Mean Corpuscular Hemoglobin 32.3 pg (28.0-32.0); Mean Corpuscular Hgb Conc. 33.9 g/dL (32.0-36.0); Mean Corpuscular Volume 95.4 fL (80.0-100.0); Monocytes # (auto) 0.6 10 ^3/uL (0-1.3); Monocytes % (auto) 10.5 % (0.0-12.0); Neutrophils # (auto) 3.2 10 ^3/uL (1.6-8.6); Neutrophils % (auto) 58.5 % (37.0-80.0); Platelet Count (auto) 225 10^3/uL (140-450); Red Blood Cells 4.08 10^6/uL (4.0-5.20); Red Cell Distribution Width 13.4 % (11.8-14.3); White Blood Cell 5.4 10^3/uL (4.4-10.8)
[2024-11-21 10:58] LABS: Alanine Aminotransferase 17 U/L (7-40); Anion Gap 9 (5-15); BUN/Creatinine Ratio 16.1 (10.0-20.0); Blood Urea Nitrogen 15 mg/dL (9-23); Calcium 9.7 mg/dL (8.7-10.4); Carbon Dioxide 24 mmol/L (20-31); Glucose 94 mg/dL (74-106); Potassium 4.1 mmol/L (3.5-5.1); Sodium 141 mmol/L (136-145); Total Protein 6.9 g/dL (5.7-8.2)
[2024-11-21 10:59] LABS: Albumin 4.4 g/dL (3.2-4.8); Aspartate Aminotransferase 16 U/L (13-40); Bilirubin, Total 0.7 mg/dL (0.2-1.0)
[2024-11-21 11:07] LABS: Alkaline Phosphatase 122 U/L (46-116); Chloride 108 mmol/L (98-107)
== END | disposition home or self-care (01) ==
LOC: LAB 09:49
PROVIDERS: ATTEND Internal Medicine
DX: Z51.11 Encounter for antineoplastic chemotherapy (principal); C50.919 Malignant neoplasm of unspecified site of unspecified female breast; M81.8 Other osteoporosis without current pathological fracture
CPT/HCPCS: 36415; 80053; 85025; 86300

== ENCOUNTER → 2024-12-15 | Outpatient (CLI) | payer MEDICARE, OTHER ==
[~2024-12-15] VITALS: Ht 167.6 cm; Wt 79.4 kg
[2024-12-15] MEDS: REGADENOSON 0.4 MG/5 ML SYRG IV ONE ×2 (10:15→10:17)
--- NOTE | 2024-12-15 16:13 | DVHSR ---
APPROVED REPORT Exam: Nuclear Stress Test BMI: 0 Stress Test Details HR Max Heart Rate (APMHR): 144.746150 bpm Target HR (85% APMHR): 122.808815 bpm BP ECG Stress ECG Conclusion normal lvef normal perfusion scan NM EXAM: Myocardial Perfusion REST/STRESS Imaging Protocol: Rest Tc-99m/Stress Tc-99m 1 day Resting Data Rest SPECT myocardial perfusion imaging was performed in supine position 60 minutes following the int ravenous injection of 12.4 mCi of Tc-99m Sestamibi. Time of rest injection: 09:05 AM Date: 12/15/2024 Time of rest imagin:05 AM Date: 12/15/2024 Administration Route: IV Administration Site: Right Arm Pharmacologic Stress Pharmacologic stress test was performed by injecting Regadenoson 0.4 mg IV push followed by the intra venous injection of 30.2 mCi of Tc-99m Sestamibi. Time of stress injection: 10:18 AM Date: 12/15/2024 Time of stress imagin:18 AM Date: 12/15/2024 Administration Route: IV Administration Site: Right Arm Gated Stress SPECT was performed 60 minutes after stress injection. The images were gated to evaluate regional wall motion and calculate left ventricular ejection fracti on. Stress only was performed in the Supine position. Nuclear Conclusion Nuclear Findings: negative for ischemia normal lvef normal perfusion scan
== END | disposition home or self-care (01) ==
LOC: XYW 08:02
PROVIDERS: ATTEND Internal Medicine
DX: Z01.810 Encounter for preprocedural cardiovascular examination (principal); M47.812 Spondylosis without myelopathy or radiculopathy, cervical region
CPT/HCPCS: 78452; 93017; A9500; J2785

== ENCOUNTER 2025-03-01 06:31 | Inpatient (IN) | payer MEDICARE, OTHER ==
[2025-02-27 10:56] LABS: Urine Bacteria None Seen /hpf (None Seen)
[2025-02-27 11:17] LABS: Basophils # (auto) 0 10 ^3/uL (0-0.2); Basophils % (auto) 0.7 % (0.0-2.0); Eosinophils # (auto) 0.2 10 ^3/uL (0-0.8); Eosinophils % (auto) 2.8 % (0.0-7.0); Hematocrit 35.9 % (36.0-46.0); Hemoglobin 12.7 g/dL (12.2-16.2); Lymphocytes # (auto) 1.4 10 ^3/uL (0.4-5.4); Lymphocytes % (auto) 22.9 % (10.0-50.0); Mean Corpuscular Hgb Conc. 35.4 g/dL (32.0-36.0); Mean Corpuscular Volume 93.2 fL (80.0-100.0); Monocytes # (auto) 0.6 10 ^3/uL (0-1.3); Monocytes % (auto) 9.4 % (0.0-12.0); Neutrophils % (auto) 64.2 % (37.0-80.0); Nucleated Red Blood Cells % 0.1 %; Platelet Count (auto) 260 10^3/uL (140-450); Red Blood Cells 3.85 10^6/uL (4.0-5.20); Red Cell Distribution Width 13.5 % (11.8-14.3); White Blood Cell 6.3 10^3/uL (4.4-10.8)
[2025-02-27 11:23] LABS: Urine Blood TRACE /uL (Negative); Urine Clarity Clear (Clear); Urine Color Colorless (Yellow); Urine Protein, UAD Negative (Negative); Urine Specific Gravity 1.004 (1.001-1.035); Urine Squamous Epithelial Cell FEW /hpf (<5); Urine Urobilinogen Normal (Negative); Urine WBC < 1 /HPF (0-5); Urine pH 6.5 (5.0-9.0)
[2025-02-27 11:59] LABS: INR 1.01 (0.9-1.15); Partial Thromboplastin Time 26.9 SEC (24.5-34.5); Prothrombin Time 10.7 sec (9.3-11.8)
[2025-02-27 12:48] LABS: Alanine Aminotransferase 13 U/L (7-40); Albumin 4.5 g/dL (3.2-4.8); Anion Gap 10 (5-15); Aspartate Aminotransferase 19 U/L (<34); BUN/Creatinine Ratio 15.9 (10.0-20.0); Bilirubin, Total 0.5 mg/dL (0.2-1.0); Blood Urea Nitrogen 14 mg/dL (9-23); Calcium 10.3 mg/dL (8.7-10.4); Carbon Dioxide 25 mmol/L (20-31); Glucose 88 mg/dL (74-106); Sodium 144 mmol/L (136-145); Total Protein 7.2 g/dL (5.7-8.2)
[2025-02-27 12:49] LABS: Alkaline Phosphatase 123 U/L (46-116); Chloride 109 mmol/L (98-107)
[~2025-03-01] VITALS: Ht 167.6 cm; Wt 80.0 kg
[~2025-03-01 06:31] MED LIST changes: -CIPR-173 PO; +MAGN400T40 OR; -METR500T PO; +MULTLIQ38 OR; +OMEP20TA PO; -PANT40TA2 PO
[2025-03-01] MEDS ORDERED: MORPHINE SULF PF 5 MG/10 ML VIAL ONE (09:03)
[2025-03-01] MEDS ORDERED: MIDAZOLAM HCL 2MG/2ML 2ml VIAL (1mg/ml) ONE (09:03)
[2025-03-01] MEDS ORDERED: fentaNYL CITRATE 100 MCG/2 ML VL ONE (09:03)
[2025-03-01] MEDS ORDERED: PROPOFOL 10 MG/ML 20 ML IV ONE (09:04)
[2025-03-01] MEDS ORDERED: ONDANSETRON HCL 4 MG/2 ML VIAL ONE (09:05)
[2025-03-01] MEDS ORDERED: METOCLOPRAMIDE HCL 5MG/ml INJ 2ml VIAL ONE (09:05)
[2025-03-01] MEDS: ceFAZolin 2 GM/D5W50ml 50 ML IV ONE (09:14)
[2025-03-01] MEDS ORDERED: ePHEDrine SULFATE 50 MG/ML AMP ONE ×2 (09:47→10:47)
[2025-03-01] MEDS: VANCOMYCIN HCL 1000 MG VL ONE (09:53)
[2025-03-01] MEDS: TRANEXAMIC ACID 20 ML ONE (09:53)
[2025-03-01] MEDS ORDERED: SUGAMMADEX 200mg/2ml Vial (100MG/ML) IV ONE (10:16)
--- NOTE | 2025-03-01 11:14 | DVHOP2 ---
Operative Report - 2 Report Details Date: 03/01/25 Preop Diagnosis: Left hip OA, endstage Postop Diagnosis: same Surgeon: Deandre Valle MD Transitional Studies Instructor: CORY Jones Anesthesiologist: Dr Almeida Anesthesia: Regional Drains: none Implant: Mary GILDARDO, 48 cup, 25 screw, standard liner, #2 stem, standard neck Consent: The patient was informed of the risks and benefits of the procedure. These i nclude but are not limited to complications of anesthesia, postoperative infection, incomplete relief of symptoms, recurrence of symptoms, damage to blood vessels, nerves and tendons, deep venous thrombosis, pulmonary embolism and possible need for repeat surgery in the future. Complications: none Estimated Blood Loss: 200 cc Fluids: 1 L crystalloid Findings: above Indications for Surgery: endstage OA left hip, non-responsive to conservative care, preventing ADLs Name of Procedure Performed Left Total Hip Arthroplasty Procedure Details Procedure Details: swee dictation under "specimen" Specimen: Patient brought in the operating room given Ancef 2 g IV piggyback preoperatively TXA 1 g IV piggyback preoperatively spinal anesthetic Dr. Almeida without complication placed into right lateral decubitus position axillary roll pillow beneath and between both legs seatbelt across waist pegs well-padded anterior and posterior sterile prep and drape left hip and lower extremity time- out performed comprehension left side correct site total hip arthroplasty correct procedure after review of operative consent history and physical my initials and left buttock standard Ama lying in back incision made centered over tip of greater trochanter sharp dissection through skin down to deep fascia deep fascia divided blunt dissection of glute max posteriorly tensor fascia jules anteriorly Charnley retractor placed exposing sciatic nerve no retractor placed near sciatic nerve Bovie cautery used to divide capsule and external rotators in one mass exposing femoral head and neck which were then hip was then dislocated retractor placed beneath femoral neck or inferior to femoral neck a femoral neck osteotomy cut made 2 cm proximal to the lesser trochanter at a 45 degree angle reaming then performed of acetabulum up to size 48 curved osteotome used to remove excessive osteophytes both anterior and posterior true cup tapped into place 45 of abduction 35 of anteversion well seated and screw placed in the proximal SC proximal most aspect of the acetabulum 25 mm screw then standard cup tapped into place then retractor placed beneath proximal femur Nam used to remove hook on greater trochanter flaca cutter then canal hand almond blancher then bro ached used to prepare femoral canal broaching up to a size two trial reduction with standard neck showing excellent stability no vertical positioning no no posterior instability with flexion adduction internal rotation to 80 true component therefore tapped into place [place] cement our Press-Fit stem size two standard neck standard head and excellent stability seen with extension external rotation flexion to 90 adduction 20 internal rotation to 90 irrigation performed capsule and external rotators were repaired EN bloc to proximal femur and irrigation placement of vancomycin powder 1 g repair of deep fascia simple interrupted 0 Vicryl sutures subcutaneous 2-0 Vicryl sutures skin eleno fluffs dressing fluffs ABD paper tape no drains specimens or complications Condition Stable Disposition Still a Patient DEANDRE VALLE MD Mar 01, 2025 11:14
[2025-03-01] MEDS ORDERED: BISACODYL 5 MG EC TAB PO PRN (11:15)
[2025-03-01] MEDS ORDERED: NITROGLYCERIN 0.4 MG SL TAB SL PRN (11:15)
[2025-03-01] MEDS ORDERED: ceFAZolin 1GM/50ML 50 ML IV SCH (11:15)
[2025-03-01 11:18] VITALS: PULSE 87; RESP 12; O2SAT 95
[2025-03-01 11:30] VITALS: PULSE 77; RESP 14; O2SAT 94
[2025-03-01] MEDS: ONDANSETRON HCL 4 MG/2 ML VIAL IV ONE (11:30)
[2025-03-01] MEDS ORDERED: hydrALAZINE HCL 20 MG/ML VL IV PRN (11:30)
[2025-03-01] MEDS: ACETAMINOPHEN IV 1000 MG/100ML (10MG/ML) IV ONE (11:54)
[2025-03-01] MEDS: LACTATED RINGER'S 1,000 ML IV SCH (12:08)
--- OUTSIDE RECORDS SUMMARY | 2025-03-01 12:16 | XMS REPORT ---
Author Author Emily Blum Organization Unknown Address Unknown Phone Unavailable Care Team Providers Care Call Worker Name Role Phone Kulwant SHEETS, James Unavailable Unavailabl e Allergies, Adverse Reactions, Alerts Substance Reaction Status Criticality ATORVASTATIN CALCIUM Active No Info rmation ATORVASTATIN CALCIUM Tachycardia Active No Info rmation Medications Medication Instructions Dosage Effective Dates (start - stop) Status Comments magnesium 250 mg tablet take one by mouth daily - Active otc omeprazole 20 mg tablet,delayed release take 1 capsule by oral route every day for 30 days 1 capsule - Active Crestor 5 mg tablet TAKE 1 TABLET DAILY - Active letrozole 2.5 mg tablet take 1 tablet by oral route every day 2.5 MG - Active D3 DOTS 2,000 unit tablet as needed - Active multivitamin tablet take 1 tablet by oral route every day with food - Active omeprazole 20 mg tablet,delayed release take 1 capsule by oral route every day for 30 days 1 capsule - No Longer Active Crestor 5 mg tablet TAKE 1 TABLET DAILY - No Longer Active diclofenac 1 % topical gel apply 2 gram by topical route 2 times every day to left knee - No Longer Active Medrol (Arron) 4 mg tablets in a dose pack take by oral route as directed per package instructions 0.00 - No Longer Active ketorolac 30 mg/mL injection solution Administered in the Office - No Longer Active Eliquis 5 mg tablet take 1 tablet by oral route 2 times every day - No Longer Active Eliquis 5 mg tablet take 1 tablet by oral route 2 times every day - No Longer Active tizanidine 4 mg tablet take 1 tablet by oral route every 8 hours as needed not to exceed 3 doses in 24 hours - No Longer Active Eliquis 5 mg tablet take 1 tablet by oral route 2 times every day - No Longer Active Eliquis 5 mg tablet take 2 tablet by oral route 2 times every day for 1 week than 1 tablet by mouth 2 times a day - No Longer Active promethazine-DM 6.25 mg-15 mg/5 mL oral syrup take 5 milliliter by oral route every 6 hours as needed 5.00 milliliter - No Longer Active zinc sulfate 50 mg zinc (220 mg) tablet take 1 tablet PO daily - No Longer Active Vitamin C 1,000 mg tablet take 1 tablet PO daily - No Longer Active Vitamin D3 125 mcg (5,000 unit) tablet take 1 tablet PO daily - No Longer Active Crestor 5 mg tablet TAKE 1 TABLET DAILY - No Longer Active ROSUVASTATIN TABS 5MG TAKE 1 TABLET DAILY - No Longer Active benzonatate 200 mg capsule take 1 capsule by oral route 3 times every day as needed for cough as needed 200 MG - No Longer Active prednisone 50 mg tablet take 1 tablet by oral route every day 50 MG - No Longer Active Tessalon Perles 100 mg capsule take 1 capsule by oral route 3 times every day as needed for cough - No Longer Active Crestor 5 mg tablet take 1 tablet by oral route every day 5 MG - No Longer Active Tessalon Perles 100 mg capsule take 1 capsule by oral route 3 times every day as needed for cough - No Longer Active Debrox 6.5 % ear drops instill 5 drop by otic route 2 times every day into affected ear(s) 5.00 drop - No Longer Active ROSUVASTATIN 5 MG TABLET TAKE 1 TABLET BY ORAL ROUTE EVERY DAY 5 MG - No Longer Active Shingrix (PF) 50 mcg/0.5 mL intramuscular suspension inject 0.5 milliliter by intramuscular route once 50 MCG - No Longer Active tizanidine 4 mg tablet take 1 tablet by oral route every 8 hours as needed not to exceed 3 doses in 24 hours as needed - No Longer Active Crestor 5 mg tablet take 1 tablet by oral route every day 5 MG - No Longer Active amoxicillin 875 mg-potassium clavulanate 125 mg tablet take 1 tablet by oral route every 12 hours 1.00 tablet - No Longer Active ciclopirox 8 % topical solution apply by topical route every day to the affected area(s) preferably at bedtime or 8 hours before washing 0.00 - No Longer Active ofloxacin 0.3 % ear drops instill 10 drop by otic route every day into affected ear(s) 1.5 MG - No Longer Active omeprazole 20 mg capsule,delayed release TAKE 1 CAPSULE DAILY 30 MINUTES TO 1 HOUR BEFORE A MEAL 20 MG - No Longer Active Crestor 5 mg tablet TAKE 1 TABLET DAILY 5 MG - No Longer Active naproxen 500 mg tablet take 1 tablet by oral route 2 times every day with food 500 MG - No Longer Active Colace 100 mg capsule take 1 (100MG) by oral route 2 times every day at bedtime as needed 100 MG - No Longer Active Anusol-HC 25 mg suppository insert 1 suppository by rectal route twice for 2 weeks - No Longer Active OMEPRAZOLE CAPS 20MG TAKE 1 CAPSULE DAILY 30 MINUTES TO 1 HOUR BEFORE A MEAL 20 MG - No Longer Active CRESTOR TABS 5MG TAKE 1 TABLET DAILY 5 MG - No Longer Active amoxicillin 400 mg/5 mL oral suspension take 6.25 milliliter by oral route every 8 hours 500 MG - No Longer Active OMEPRAZOLE CAPS 20MG TAKE 1 CAPSULE DAILY 30 MINUTES TO 1 HOUR BEFORE A MEAL 20 MG - No Longer Active CRESTOR TABS 5MG TAKE 1 TABLET DAILY 5 MG - No Longer Active CRESTOR TABS 5MG TAKE 1 TABLET DAILY 5 MG - No Longer Active OMEPRAZOLE CAPS 20MG TAKE 1 CAPSULE DAILY 30 MINUTES TO 1 HOUR BEFORE A MEAL 20 MG - No Longer Active Keflex 500 mg capsule take 1 capsule by oral route every 6 hours 500 MG - No Longer Active omeprazole 20 mg capsule,delayed release take 1 capsule (20MG) by oral route every day 30 minutes to 1 hour before a meal 20 MG - No Longer Active omeprazole 40 mg capsule,delayed release take 1 capsule (40MG) by oral route every day before a meal 40 MG - No Longer Active Crestor 5 mg tablet take 1 tablet (5MG) by oral route every day 5 MG - No Longer Active Crestor 5 mg tablet take 1 tablet (5MG) by oral route every day 5 MG - No Longer Active Crestor 5 mg tablet take 1 tablet (5MG) by oral route every day 5 MG - No Longer Active Slo-Niacin 500 mg tablet,extended release take 1 tablet (1000MG) once a day - No Longer Active Crestor 5 mg tablet take 1 tablet (5MG) by oral route every day 5 MG - No Longer Active pantoprazole 40 mg tablet,delayed release take 1 tablet by oral route 2 times every day 40 MG - Tuan-07-2021 No Longer Active omeprazole 20 mg capsule,delayed release take 1 capsule by oral route every day before a meal 20 MG - No Longer Active Lipitor 10 mg tablet take 1 tablet (10MG) by oral route every day TAKE HS 10 MG - No Longer Active Calcium 500 + D (D3) 500 mg-125 unit tablet Take 1 tablet by mouth twice daily. - No Longer Active OMEGA-3 (unknown strength) Take 1 tablet by mouth twice daily. Not Available - No Longer Active GLUCOSAMINE SULFATE (unknown strength) Take 1 tablet by mouth twice daily. Not Available - No Longer Active Problems Condition Type Effective Dates (start - stop) Clinical Status Comments H/O: pulmonary embolus Problem (finding) - Active (qualifier value) Dyslipidemia Problem (finding) - Active (qualifier value) Jaw pain Problem (finding) - Active (qualifier value) Scoliosis deformity of spine Problem (finding) - Active (qualifier value) Essential hypertension Problem (finding) - Active (qualifier value) Jaw pain Problem (finding) - Active (qualifier value) Pulmonary embolism Problem (finding) - Active (qualifier value) Hyperlipidemia Problem (finding) - Active (qualifier value) Mapped from [facility] Chronic Conditions table on 06/03/2014 by the ICD9 to SNOMED Bulk Mapping Utility. The mapped diagnosis code was Hyperlipidemia LDL goal < 130, 272.4, added by Ana Maria Veliz, with responsible provider Ana Maria Veliz MD. Onset date 06/30/2012; last addressed on 04/04/2014. Disorder of bone and articular cartilage Problem (finding) - Active (qualifier value) Mapped from [facility] Chronic Conditions table on 06/03/2014 by the ICD9 to SNOMED Bulk Mapping Utility. The mapped diagnosis code was Osteopenia, 733.90, added by Kaela Teran, with responsible provider Ana Maria Veliz MD. Onset date 05/06/2012; last addressed on 05/06/2012. Diverticular disease of colon Problem (finding) - Active (qualifier value) Mapped from [facility] Chronic Conditions table on 06/03/2014 by the ICD9 to SNOMED Bulk Mapping Utility. The mapped diagnosis code was Diverticulosis of colon (without mention of hemorr, 562.10, added by Kaela Teran, with responsible provider Ana Maria Veliz MD. Onset date 05/06/2012; last addressed on 06/30/2012. Diaphragmatic hernia Problem (finding) - Active (qualifier value) Mapped from [facility] Chronic Conditions table on 06/03/2014 by the ICD9 to SNOMED Bulk Mapping Utility. The mapped diagnosis code was Hiatal hernia, 553.3, added by Kaela Teran, with responsible provider Ana Maria Veliz MD. Onset date 05/06/2012; last addressed on 05/06/2012. Idiopathic scoliosis AND/OR kyphoscoliosis Problem (finding) - Active (qualifier value) Mapped from [facility] Chronic Conditions table on 06/03/2014 by the ICD9 to SNOMED Bulk Mapping Utility. The mapped diagnosis code was Scoliosis, 737.30, added by Kaela Teran, with responsible provider Ana Maria Veliz MD. Onset date 05/06/2012; last addressed on 05/06/2012. Pure hypercholesterolemia Problem (finding) - Active (qualifier value) Mapped from [facility] Chronic Conditions table on 06/03/2014 by the ICD9 to SNOMED Bulk Mapping Utility. The mapped diagnosis code was Hypercholesteremia, 272.0, added by Kaela Teran, with responsible provider Ana Maria Veliz MD. Onset date 05/06/2012; last addressed on 04/20/2013. Procedures Procedure Date OFFICE/OUTPATIENT VISIT EST Obtaining screen pap smear OFFICE CONSULTATION Complex e/m visit add on DIAST BP 80-89 MM HG SYST BP >= 140 MM HG MED LIST DOCD IN [facility] BY RX/DR IN [facility] MED/CURRENT MED MERGE OFFICE/OUTPATIENT VISIT EST HIP UNIL W/PELV WHEN PERF, 2-3 VIEWS Feb EXTREMITY STUDY Complex e/m visit add on DIAST BP 80-89 MM HG SYST BP >= 140 MM HG MED LIST DOCD IN [facility] BY RX/DR IN [facility] MED/CURRENT MED MERGE OFFICE/OUTPATIENT VISIT EST ELECTROCARDIOGRAM COMPLETE OFFICE/OUTPATIENT VISIT NEW Complex e/m visit add on DIAST BP 80-89 MM HG SYST BP LT 130 MM HG MED LIST DOCD IN [facility] BY RX/ IN [facility] MED/CURRENT MED MERGE DIAST BP >= 90 MM HG SYST BP >= 140 MM HG MED LIST DOCD IN [facility] BY RX/ IN [facility] MED/CURRENT MED MERGE OFFICE/OUTPATIENT VISIT EST DIAST BP < 80 MM HG SYST BP LT 130 MM HG MED LIST DOCD IN [facility] BY RX/ IN [facility] MED/CURRENT MED MERGE PPPS, subseq visit DIAST BP >= 90 MM HG SYST BP >= 140 MM HG MED LIST DOCD IN [facility] BY RX/DR IN [facility] MED/CURRENT MED MERGE OFFICE/OUTPATIENT VISIT EST DIAST BP < 80 MM HG SYST BP >= 140 MM HG MED LIST DOCD IN [facility] BY RX/DR IN [facility] MED/CURRENT MED MERGE OFFICE/OUTPATIENT VISIT EST DIAST BP < 80 MM HG SYST BP GE 130 - 139MM HG MED LIST DOCD IN [facility] BY RX/DR IN [facility] MED/CURRENT MED MERGE OFFICE/OUTPATIENT VISIT EST DIAST BP 80-89 MM HG SYST BP GE 130 - 139MM HG OFFICE/OUTPATIENT VISIT NEW DESTRUCT B9 LESION 1-14 DIAST BP >= 90 MM HG SYST BP >= 140 MM HG MED LIST DOCD IN [facility] BY RX/ IN [facility] MED/CURRENT MED MERGE OFFICE/OUTPATIENT VISIT EST DIAST BP < 80 MM HG SYST BP >= 140 MM HG MED LIST DOCD IN [facility] BY RX/ IN [facility] MED/CURRENT MED MERGE OFFICE/OUTPATIENT VISIT EST DRAIN/INJECT JOINT/BURSA Triamcinolone Acetate Injection NOS DIAST BP 80-89 MM HG SYST BP GE 130 - 139MM HG MED LIST DOCD IN [facility] BY RX/DR IN [facility] MED/CURRENT MED MERGE OFFICE/OUTPATIENT VISIT EST DIAST BP 80-89 MM HG SYST BP >= 140 MM HG MED LIST DOCD IN [facility] BY RX/ IN [facility] MED/CURRENT MED MERGE OFFICE/OUTPATIENT VISIT EST DRAIN/INJECT JOINT/BURSA Triamcinolone Acetate Injection NOS DIAST BP < 80 MM HG SYST BP GE 130 - 139MM HG MED LIST DOCD IN [facility] BY RX/DR IN [facility] MED/CURRENT MED MERGE PPPS, initial visit DIAST BP 80-89 MM HG SYST BP >= 140 MM HG MED LIST DOCD IN [facility] BY RX/ IN [facility] MED/CURRENT MED MERGE OFFICE/OUTPATIENT VISIT EST DRAIN/INJECT JOINT/BURSA Triamcinolone Acetate Injection NOS DIAST BP 80-89 MM HG SYST BP LT 130 MM HG MED LIST DOCD IN [facility] BY RX/ IN [facility] MED/CURRENT MED MERGE OFFICE/OUTPATIENT VISIT EST DIAST BP < 80 MM HG SYST BP LT 130 MM HG MED LIST DOCD IN [facility] BY RX/ IN [facility] MED/CURRENT MED MERGE OFFICE/OUTPATIENT VISIT EST OFFICE/OUTPATIENT VISIT EST DIAST BP < 80 MM HG SYST BP LT 130 MM HG MED LIST DOCD IN [facility] BY RX/ IN [facility] MED/CURRENT MED MERGE OFFICE/OUTPATIENT VISIT EST MEASURE BLOOD OXYGEN LEVEL DIAST BP 80-89 MM HG SYST BP >= 140 MM HG MED LIST DOCD IN [facility] BY RX/DR IN [facility] MED/CURRENT MED MERGE OFFICE/OUTPATIENT VISIT EST DIAST BP 80-89 MM HG SYST BP >= 140 MM HG OFFICE/OUTPATIENT VISIT EST OFFICE/OUTPATIENT VISIT EST MED LIST DOCD IN [facility] BY RX/DR IN [facility] MED/CURRENT MED MERGE OFFICE/OUTPATIENT VISIT EST DIAST BP < 80 MM HG SYST BP LT 130 MM HG MED LIST DOCD IN [facility] BY RX/DR IN [facility] MED/CURRENT MED MERGE OFFICE/OUTPATIENT VISIT EST PPPS, subseq visit OFFICE/OUTPATIENT VISIT EST MED LIST DOCD IN [facility] BY RX/DR IN [facility] MED/CURRENT MED MERGE OFFICE/OUTPATIENT VISIT NEW DIAST BP < 80 MM HG SYST BP >= 140 MM HG OFFICE/OUTPATIENT VISIT EST DIAST BP < 80 MM HG SYST BP GE 130 - 139MM HG MED LIST DOCD IN [facility] BY RX/DR IN [facility] MED/CURRENT MED MERGE OFFICE/OUTPATIENT VISIT EST DIAST BP 80-89 MM HG SYST BP >= 140 MM HG MED LIST DOCD IN [facility] BY RX/DR [facility] MED/CURRENT MED MERGE OFFICE/OUTPATIENT VISIT EST Ko elas w/ condyle pads & adrian THER/PROPH/DIAG INJ SC/IM Ketorolac tromethamine inj Per 15 Mg May MANUAL THERAPY HOT OR COLD PACKS THERAPY Elec stim other than wound THERAPEUTIC EXERCISES MANUAL THERAPY HOT OR COLD PACKS THERAPY Elec stim other than wound THERAPEUTIC EXERCISES MANUAL THERAPY HOT OR COLD PACKS THERAPY Elec stim other than wound THERAPEUTIC EXERCISES MANUAL THERAPY HOT OR COLD PACKS THERAPY Elec stim other than wound THERAPEUTIC EXERCISES MANUAL THERAPY HOT OR COLD PACKS THERAPY Elec stim other than wound THERAPEUTIC EXERCISES MANUAL THERAPY HOT OR COLD PACKS THERAPY Elec stim other than wound THERAPEUTIC EXERCISES DIAST BP < 80 MM HG SYST BP LT 130 MM HG MED LIST DOCD IN [facility] BY RX/DR IN [facility] MED/CURRENT MED MERGE OFFICE/OUTPATIENT VISIT EST MANUAL THERAPY HOT OR COLD PACKS THERAPY Elec stim other than wound THERAPEUTIC EXERCISES MANUAL THERAPY HOT OR COLD PACKS THERAPY Elec stim other than wound THERAPEUTIC EXERCISES MANUAL THERAPY HOT OR COLD PACKS THERAPY Elec stim other than wound THERAPEUTIC EXERCISES MANUAL THERAPY HOT OR COLD PACKS THERAPY Elec stim other than wound THERAPEUTIC EXERCISES MANUAL THERAPY THERAPEUTIC EXERCISES HOT OR COLD PACKS THERAPY Elec stim other than wound THERAPEUTIC EXERCISES HOT OR COLD PACKS THERAPY PT EVAL MOD COMPLEX 30 MIN DIAST BP 80-89 MM HG SYST BP >= 140 MM HG MED LIST DOCD IN [facility] BY RX/DR [facility] OFFICE/OUTPATIENT VISIT EST DIAST BP 80-89 MM HG SYST BP >= 140 MM HG [facility] MED/CURRENT MED MERGE OFFICE/OUTPATIENT VISIT EST MEASURE BLOOD OXYGEN LEVEL DIAST BP < 80 MM HG SYST BP LT 130 MM HG MED LIST DOCD IN [facility] BY RX/DR [facility] OFFICE/OUTPATIENT VISIT EST DIAST BP 80-89 MM HG SYST BP >= 140 MM HG [facility] MED/CURRENT MED MERGE OFFICE/OUTPATIENT VISIT EST MEASURE BLOOD OXYGEN LEVEL MEASURE BLOOD OXYGEN LEVEL DIAST BP 80-89 MM HG SYST BP >= 140 MM HG MED LIST DOCD IN [facility] BY RX/DR [facility] OFFICE/OUTPATIENT VISIT EST DIAST BP 80-89 MM HG SYST BP >= 140 MM HG [facility] MED/CURRENT MED MERGE OFFICE/OUTPATIENT VISIT NEW MEASURE BLOOD OXYGEN LEVEL DIAST BP < 80 MM HG SYST BP >= 140 MM HG MED LIST DOCD IN [facility] BY RX/DR IN [facility] OFFICE/OUTPATIENT VISIT EST MEASURE BLOOD OXYGEN LEVEL DIAST BP 80-89 MM HG SYST BP >= 140 MM HG MED LIST DOCD IN [facility] BY RX/DR [facility] OFFICE/OUTPATIENT VISIT EST OFFICE/OUTPATIENT VISIT EST DIAST BP < 80 MM HG SYST BP LT 130 MM HG MED LIST DOCD IN [facility] BY RX/ IN [facility] DIAST BP < 80 MM HG SYST BP LT 130 MM HG MED LIST DOCD IN [facility] BY RX/ IN [facility] Trans care mgmt 7 day disch HOSPITAL DISCHARGE DAY INITIAL HOSPITAL CARE SUBSEQUENT HOSPITAL CARE SUBSEQUENT HOSPITAL CARE CRITICAL CARE FIRST HOUR INITIAL HOSPITAL CARE SARS-COV-2 COVID19 W/OPTIC SARS-COV-2 COVID19 W/OPTIC DIAST BP 80-89 MM HG SYST BP GE 130 - 139MM HG MED LIST DOCD IN [facility] PPPS, subseq visit [facility] MED/CURRENT MED MERGE MED LIST DOCD IN [facility] BY RX/ IN [facility] OFFICE/OUTPATIENT VISIT EST MED LIST DOCD IN [facility] BY RX/DR IN [facility] OFFICE/OUTPATIENT VISIT EST [facility] MED/CURRENT MED MERGE OFFICE/OUTPATIENT VISIT EST [facility] MED/CURRENT MED MERGE OFFICE/OUTPATIENT VISIT EST FLU VACCINE, SPLIT, PRESERV FREE 3YRS OR OLDER Admin influenza virus vac OFFICE/OUTPATIENT VISIT EST REMOVE IMPACTED EAR WAX [facility] MED/CURRENT MED MERGE OFFICE/OUTPATIENT VISIT EST DIAST BP 80-89 MM HG SYST BP >= 140 MM HG [facility] MED/CURRENT MED MERGE POSTOP FOLLOW-UP VISIT POSTOP FOLLOW-UP VISIT [facility] MED/CURRENT MED MERGE Trans care mgmt 7 day disch DIAST BP >= 90 MM HG SYST BP >= 140 MM HG OFFICE/OUTPATIENT VISIT EST DESTRUCT PREMALG LESION DIAST BP >= 90 MM HG SYST BP >= 140 MM HG [facility] MED/CURRENT MED MERGE OFFICE/OUTPATIENT VISIT NEW OFFICE/OUTPATIENT VISIT EST OFFICE/OUTPATIENT VISIT EST DESTRUCT PREMALG LESION [facility] MED/CURRENT MED MERGE OFFICE/OUTPATIENT VISIT EST MEASURE BLOOD OXYGEN LEVEL OFFICE/OUTPATIENT VISIT EST OFFICE/OUTPATIENT VISIT EST [facility] MED/CURRENT MED MERGE OFFICE/OUTPATIENT VISIT EST OFFICE/OUTPATIENT VISIT EST Calc BMI out nrm gina nof/u [facility] MED/CURRENT MED MERGE OFFICE/OUTPATIENT VISIT EST [facility] MED/CURRENT MED MERGE PPPS, subseq visit Calc BMI norm parameters OFFICE/OUTPATIENT VISIT EST Calc BMI norm parameters OFFICE/OUTPATIENT VISIT EST OFFICE/OUTPATIENT VISIT EST OFFICE/OUTPATIENT VISIT EST DESTRUCT PREMALG LESION Calc BMI out nrm gina nof/u OFFICE/OUTPATIENT VISIT EST DESTRUCT PREMALG LESION TD VACCINE NO PRSRV >/= 7 IM Calc BMI out nrm gina nof/u IMMUNIZATION ADMIN OFFICE/OUTPATIENT VISIT EST Calc BMI out nrm gina nof/u PER PM REEVAL EST PAT 65+ YR OFFICE/OUTPATIENT VISIT EST REMOVE IMPACTED EAR WAX Calc BMI out nrm gina nof/u DESTRUCT PREMALG LESION OFFICE/OUTPATIENT VISIT EST OFFICE/OUTPATIENT VISIT EST PNEUMOCOCCAL VACCINE Admin pneumococcal vaccine DESTRUCT PREMALG LESION OFFICE/OUTPATIENT VISIT EST DESTRUCT PREMALG LESION Elec stim other than wound INFRARED THERAPY THERAPEUTIC EXERCISES MANUAL THERAPY Elec stim other than wound INFRARED THERAPY THERAPEUTIC EXERCISES MANUAL THERAPY Elec stim other than wound INFRARED THERAPY THERAPEUTIC EXERCISES MANUAL THERAPY Elec stim other than wound INFRARED THERAPY THERAPEUTIC EXERCISES OFFICE/OUTPATIENT VISIT EST MANUAL THERAPY Elec stim other than wound INFRARED THERAPY THERAPEUTIC EXERCISES ULTRASOUND THERAPY MANUAL THERAPY Elec stim other than wound INFRARED THERAPY THERAPEUTIC EXERCISES Elec stim other than wound INFRARED THERAPY THERAPEUTIC EXERCISES MOBILITY; WALKING & MOVING, CURRENT STAT US Elec stim other than wound INFRARED THERAPY THERAPEUTIC EXERCISES PT EVALUATION PreHyper Hyper BP Rdng & F/u OFFICE/OUTPATIENT VISIT EST PreHyper Hyper BP Rdng & F/u OFFICE/OUTPATIENT VISIT EST OFFICE/OUTPATIENT VISIT EST Surgical trays DESTRUCTION OF SKIN LESIONS SHAVE SKIN LESION SHAVE SKIN LESION OFFICE/OUTPATIENT VISIT EST OFFICE/OUTPATIENT VISIT EST Charges And MR Never Completed OFFICE/OUTPATIENT VISIT EST OFFICE/OUTPATIENT VISIT EST OFFICE/OUTPATIENT VISIT EST OFFICE/OUTPATIENT VISIT EST Flulaval vacc, 3 yrs & >, im Admin influenza virus vac Admin pneumococcal vaccine PNEUMOCOCCAL VACC 13 TREY IM OFFICE/OUTPATIENT VISIT EST Flulaval vacc, 3 yrs & >, im Admin influenza virus vac OFFICE/OUTPATIENT VISIT EST OFFICE/OUTPATIENT VISIT EST OFFICE/OUTPATIENT VISIT EST Surgical trays INTMD WND REPAIR FACE/MM EXC F/E/E/N/L MAL+MRG 1.1-2 OFFICE/OUTPATIENT VISIT EST OFFICE/OUTPATIENT VISIT EST SPECIAL SUPPLIES OFFICE/OUTPATIENT VISIT EST Surgical trays INTMD WND REPAIR N-HF/GENIT EXC S/N/H/F/G MAL+MRG 2.1-3 OFFICE/OUTPATIENT VISIT EST OFFICE/OUTPATIENT VISIT EST OFFICE/OUTPATIENT VISIT NEW OFFICE/OUTPATIENT VISIT EST Rx certified EHR No Charge Flulaval vacc, 3 yrs & >, im Admin influenza virus vac OFFICE/OUTPATIENT VISIT NEW OFFICE/OUTPATIENT VISIT EST OFFICE/OUTPATIENT VISIT EST OFFICE/OUTPATIENT VISIT EST ELECTROCARDIOGRAM COMPLETE OFFICE/OUTPATIENT VISIT EST OFFICE/OUTPATIENT VISIT EST OFFICE/OUTPATIENT VISIT EST Flulaval vacc, 3 yrs & >, im IMMUNIZATION ADMIN OFFICE/OUTPATIENT VISIT EST URINALYSIS NONAUTO W/O SCOPE OFFICE/OUTPATIENT VISIT EST FLU VACCINE, SPLIT, PRESERV FREE 3YRS OR OLDER Admin influenza virus vac FLU VACCINE, SPLIT, PRESERV FREE 3YRS OR OLDER Admin influenza virus vac FLU VACCINE, SPLIT, PRESERV FREE 3YRS OR OLDER Admin influenza virus vac FLU VACCINE, SPLIT, PRESERV FREE 3YRS OR OLDER Admin influenza virus vac FLU VACCINE, SPLIT, PRESERV FREE 3YRS OR OLDER Admin influenza virus vac FLU VACCINE, SPLIT, PRESERV FREE 3YRS OR OLDER Admin influenza virus vac IIV ADJUVANT VACCINE IM IMMUNIZATION ADMIN HIP UNIL W/PELV WHEN PERF, 2-3 VIEWS Feb X-RAY EXAM OF KNEE 1 OR 2 DXA BONE DENSITY AXIAL EXTREMITY STUDY X-RAY EXAM OF HAND CT THORAX W/O DYE TTE W/DOPPLER COMPLETE MRI JNT OF LWR EXTRE W/O DYE X-RAY EXAM KNEE 4 OR MORE EXTREMITY STUDY CARDIOVASCULAR STRESS TEST CARDIOVASCULAR STRESS TEST CT THORAX W/O DYE DXA BONE DENSITY AXIAL EMERGENCY DEPT VISIT EMERGENCY DEPT VISIT ECHO EXAM OF ABDOMEN X-RAY EXAM OF LOWER LEG EXTREMITY STUDY CHEST X-RAY 2VW PHONE E/M BY PHYS 11-20 MIN HOSPITAL DISCHARGE DAY INITIAL HOSPITAL CARE MAST SIMPLE COMPLETE MAST MOD RAD CHEST X-RAY 2VW Rescheduled OFFICE/OUTPATIENT VISIT EST LOCM 300-399mg/ml iodine,1ml CT ABD & PELV W/CONTRAST CT THORAX W/DYE OFFICE/OUTPATIENT VISIT NEW EMERGENCY DEPT VISIT US EXAM BREAST UNIL COMPLETE BREAST TOMOSYNTHESIS BI SCR MAMMO BI INCL CAD DXA BONE DENSITY AXIAL CT HEAD/BRAIN W/O DYE UPPER GI ENDOSCOPY BIOPSY ESOPH ENDOSCOPY DILATION SCR MAMMO BI INCL CAD ELECTROCARDIOGRAM REPORT EMERGENCY DEPT VISIT Screeningmammographydigital XRAY FEMUR MIN OF 2 VIEWS DXA BONE DENSITY AXIAL DXA BONE DENSITY AXIAL X-RAY EXAM OF SPINE COMP SCREEN MAMMOGRAM ADD-ON MAMMOGRAM SCREENING US EXAM BREAST UNIL COMPLETE COMP SCREEN MAMMOGRAM ADD-ON MAMMOGRAM SCREENING UPPR GI ENDOSCOPY DIAGNOSIS Colon ca scrn not hi rsk ind COMP SCREEN MAMMOGRAM ADD-ON MAMMOGRAM SCREENING OFFICE/OUTPATIENT VISIT EST OFFICE/OUTPATIENT VISIT NEW US EXAM ABDO BACK WALL COMP ECG MONIT/REPRT UP TO 48 HRS US EXAM ABDO BACK WALL COMP MAMMOGRAM SCREENING OFFICE/OUTPATIENT VISIT EST OFFICE/OUTPATIENT VISIT EST OFFICE/OUTPATIENT VISIT EST Advance Directives Directive Yes / No Effective Date File Name Resuscitation Not Answered N/A N/A Life Support Not Answered N/A N/A Intubation Not Answered N/A N/A Antibiotics Not Answered N/A N/A IV Fluid Support Not Answered N/A N/A Tube Feed Not Answered N/A N/A Other Directive N/A N/A WARNING:The information contained in this section is historical and is provided for information only and does not constitute a legal document or any assurance that the information is still accurate. Please verify the information with the santos of the legal document before using it for clinical purposes. Encounters Encounter Description Practice Location Reason(s) For Visit Diagnoses Date Provider Providers Copied on Encounter OFFICE/OUTPAT IENT VISIT EST [facility], [address] [place], [place], [id number] , tel:[phone] [facility] MOB pre op visit (chief complaint) Primary osteoarthrit is of left hip 5 Kulwant Ramirez[address] [place] [address], [address], [address], [place]. tel:[phone] Referring Provider: Ana Maria Veliz, [address] [place] [address], [address]. tel:[phone] [facility], [address] [place], [place], [id number] , tel:[phone] [facility] Unilateral primary osteoarthrit is, left hip 5 Jono Floyd. [address] [place], [place], [id number], [place]. tel:[phone] Referring Provider: James Rinaldi, [address], [address]. tel:[phone] [facility], [address] [place], [place], [id number] , [place] tel:[phone] [facility] Pain in right lower legLocalized swelling, mass and lump, right lower limb Jono Floyd. [address] [place] [address], [id number], . tel:[phone] Referring Provider: Lissette RIOS, [address] [place] [address], On license of [facility]. tel:[phone] OFFICE/OUTPAT IENT VISIT [facility], [address] [place] [address], [id number] , [place] tel:[phone] [facility] chronic conditions (chief complaint) Lower extremity edemaPrimary osteoarthrit is of left hipChronic kidney disease, stage 3aEssential (primary) hypertension Benign paroxysmal positional vertigo, bilateral 5 Urban Mclaughlin. [address] [place] [address], [address], . tel:[phone] Referring Provider: Ana Maria Veliz, [address] [place] [address], [id number]. tel:[phone] [facility], [address] [place] [address], [id number] , tel:[phone] [facility] No Information 5 Erickson Vivar. [address] [place] [address], [facility] [address], [place], [address], . tel:[phone] OFFICE/OUTPAT IENT VISIT [facility], [address] [place] [address], [id number] , [place] tel:[phone] [facility] preoperative cardiac assessment (chief complaint) History of bilateral mastectomyHi story of breast cancerArthri tisAllergy to atorvastatin Dyslipidemia Essential (primary) hypertension Primary osteoarthrit is of left hipPreoperat javier cardiovascul ar examination Dec- 5 Almendarez Cb[address] [place] [address], [facility] 105, [place], [address], . tel:[phone] Referring Provider: Ana Maria Veliz, [address] [place] [address], [address]. tel:[phone] OFFICE/OUTPAT IENT VISIT [facility], [address] [place] [address], [id number] , tel:[phone] [facility] Primary Care [facility] ER follow up (chief complaint) Essential (primary) hypertension Benign paroxysmal positional vertigo, bilateralFac et arthritis, degenerative , cervical spineChronic kidney disease, stage 3a 5 Urban Mclaughlin. [address] [place] [address], [address] [place] [address]. tel:[phone] Referring Provider: Ana Maria Veliz, [address] [place] [address], [address]. tel:[phone] [facility], [address] [place] [address], [id number] , tel:[phone] [facility] Care Building Medicare preventive (chief complaint) Osteopenia after menopausePri korin osteoarthrit is of left hipDyslipide miaEssential (primary) hypertension Medicare annual wellness visit, subsequentTh oracic aortic ectasia 5 Urban Mclaughlin. [address] [place] [address], On license of [facility], . tel:[phone] Referring Provider: Ana Maria Veliz, [address] [place] [address], [address]. tel:[phone] OFFICE/OUTPAT IENT VISIT [facility], [address] [place] [address] [place], [id number] , tel:[phone] [facility] MOB hip (chief complaint) Primary osteoarthrit is of left hip 4 Kulwant Ramirez. [address] [place] [address], [address], On license of [facility], . tel:[phone] Referring Provider: Ana Maria Veliz, [address] [place] [address], [address]. tel:[phone] [facility], [address] [place] [address], [id number] , [place] tel:[phone] [facility] Primary Care [facility] No Information 0 4 Urban Mclaughlin. [address] [place] [address], On license of [facility], . tel:[phone] OFFICE/OUTPAT IENT VISIT [facility], [address] [place] [address], [id number] , [place] tel:[phone] [facility] MOB Full body exam (chief complaint) History of basal cell carcinomaSeb orrheic keratosisNeo plasm of uncertain behavior of skin Sep-2 4 Maddison Garcia. [address] [facility], [address], [place], [place], [id number], [place]. tel:[phone] Referring Provider: Andrea Gunter, [address], [place], [place], On license of [facility]. tel:[phone] [facility], [address] [place] [address], [id number] , [place] tel:[phone] [facility] Care [facility] Mall Event Flu Vaccine (chief complaint) No Information May-2 4 Urban Mclaughlin. [address] [place] [address], On license of [facility], . tel:[phone] Referring Provider: Ana Maria Veliz, [address] [place] [address], [address]. tel:[phone] OFFICE/OUTPAT IENT VISIT [facility], [address] [place] [address], [id number] , [place] tel:[phone] [facility] chronic conditions (chief complaint) Hx of basal cell carcinoma excisionDysl ipidemiaEsse ntial (primary) hypertension May-0 4 Urban Mclaughlin. [address] [place] [address], On license of [facility], . tel:[phone] Referring Provider: Ana Maria Veliz, [address] [place] [address], [address]. tel:[phone] OFFICE/OUTPAT IENT VISIT [facility], [address] [place] [address], [id number] , [place] tel:[phone] [facility] lesion(s) (chief complaint) Other viral wartsHistory of basal cell carcinoma (BCC)Viral warts, unspecified typeSK (seborrheic keratosis) 4 Maddison Garcia. [address] [facility], [address], [place], [place], [id number], [place]. tel:[phone] Referring Provider: Ana Maria Veliz, [address] [place] [address], [address]. tel:[phone] OFFICE/OUTPAT IENT VISIT EST [facility], [address] [facility], [place], [place], [id number] , [place] tel:[phone] [facility] hip (chief complaint) Primary osteoarthrit is of left hip 4 Kulwant Ramirez. [address] [facility], [facility] [address], [place], [address], [place]. tel:[phone] Referring Provider: Ana Maria Veliz, [address] [place] [address], [address]. tel:[phone] [facility], [address] [place], [place], [id number] , [place] tel:[phone] [facility] No Information 4 De La Cruz Everett. [address] [place], [place], [id number], [place]. tel:[phone] Referring Provider: James Rinaldi, [address] [facility] [address], [place], [address]. tel:[phone] [facility], [address] [facility], [place], [id number] , [place] tel:[phone] [facility] No Information 4 De La Cruz Everett. [address] [place], [place], [id number], [place]. tel:[phone] Referring Provider: James Rinaldi, [address] [place] [address] 1, [place], [address]. tel:[phone] OFFICE/OUTPAT IENT VISIT [facility], [address] [place] [address], [id number] , [place] tel:[phone] [facility] knee (chief complaint) Primary osteoarthrit is of left hipPrimary osteoarthrit is of left knee 4 Kulwant Ramirez. [address] [place] [address], [facility] [address], [place], On license of [facility], . tel:[phone] Referring Provider: Ana Maria Veliz, [address] [place] [address], [address]. tel:[phone] OFFICE/OUTPAT IENT VISIT [facility], [address] [place] [address], [id number] , tel:[phone] [facility] hypertension (chief complaint) Osteopenia of left hipEssential (primary) hypertension Thoracic aortic ectasia 4 Urban Mclaughlin. [address] [place] [address], On license of [facility], . tel:[phone] Referring Provider: Ana Maria Veliz, [address] [place] [address], [address]. tel:[phone] OFFICE/OUTPAT IENT VISIT [facility], [address] [place] [address], [id number] , tel:[phone] [facility] knee (chief complaint) Complex tear of medial meniscus of left knee as current injury, subsequent encounter 4 Kulwant Ramirez. [address] [place] [address], [facility] [address], On license of [facility], . tel:[phone] Referring Provider: Ana Maria Veliz, [address] [place] [address], [address]. tel:[phone] [facility], [address] [place] [address], [id number] , tel:[phone] [facility] No Information 4 Jono Floyd. [address] [place] [address], [id number], . tel:[phone] Referring Provider: Lissette RIOS, [address] [place] [address], [address]. [phone] [facility], [address] [place] [address], [place], [id number] , tel:[phone] [facility] Primary Care Building Medicare preventive (chief complaint) Medicare annual wellness visit, subsequentCK D (chronic kidney disease) stage 2, GFR 60-89 ml/minDyslip idemiaEssent ial (primary) hypertension 4 Urban Mclaughlin. [address] [place] [address], [address], . tel:[phone] Referring Provider: Ana Maria Veliz, [address] [place] [address], [address]. [phone] OFFICE/OUTPAT IENT VISIT [facility], [address] [place] [address], [id number] , tel:[phone] [facility] MOB knee (chief complaint) Complex tear of medial meniscus of left knee as current injury, subsequent encounter 3 Kulwant Ramirez. [address] [place] [address], [address], [address], . tel:[phone] Referring Provider: Ana Maria Veliz, [address] [place] [address], [address]. tel:[phone] OFFICE/OUTPAT IENT VISIT [facility], [address] [place] [address], [place], [place], [id number] , tel:[phone] [facility] leg pain (chief complaint) Inguinal muscle strain, initial encounter 3 Urban Mclaughlin. [address] [place] [address], [address], . tel:[phone] Referring Provider: Ana Maria Veliz, [address] [place] [address], [address]. tel:[phone] [facility], [address] [place] [address], [id number] , tel:[phone] [facility] Primary Care Building Flu Vaccine (chief complaint) No Information 3 Urban Mclaughlin. [address] [place] [address], [address] [place] [address]. tel:[phone] Referring Provider: Ana Maria Veliz, [address] [place] [address], [address]. tel:[phone] OFFICE/OUTPAT IENT VISIT [facility], [address] [place] [address], [place], [place], [id number] , [phone] [facility] Primary Care [facility] chronic conditions (chief complaint) Left leg numbnessLarg e hiatal herniaDyslip idemiaEssent ial (primary) hypertension 3 Urban Mclaughlin. [address] [place] [address], [address] [place] [address]. [phone] Referring Provider: Ana Maria Veliz, [address] [place] [address], [address]. tel:[phone] OFFICE/OUTPAT IENT VISIT [facility], [address] [place] [address], [place], [id number] , [phone] [facility] MOB follow up of mild aortic root dilation (chief complaint) Hx pulmonary embolismLarg e hiatal herniaLung noduleDyslip idemiaEssent ial (primary) hypertension Aortic root dilatation 3 Cindi Saldaña. [address] [facility], [address], [place], On license of [facility], . tel:[phone] Referring Provider: Ana Maria Veliz, [address] [place] [address], [address]. [phone] [facility], [address] [place] [address], [id number] , tel:[phone] [facility] Primary Care Building No Information 3 Jono Floyd. [address] [place] [address], [id number], . tel:[phone] Referring Provider: Lissette RIOS, [address] [place] [address], [address]. tel:[phone] OFFICE/OUTPAT IENT VISIT [facility], [address] [place] [address], [id number] , tel:[phone] [facility] Primary Care Building chronic conditions (chief complaint) Essential (primary) hypertension Left leg numbness May-0 3 Urban [facility]on Mclaughlin. [address] [place] [address], [address], . tel:[phone] Referring Provider: Ana Maria Veliz, [address] [place] [address], [address]. tel:[phone] OFFICE/OUTPAT IENT VISIT [facility], [address] [place] [address], [id number] , tel:[phone] [facility] MOB Follow Up of Abnormal Pulmonary Study (chief complaint)Fo llow Up of pulmonary embolism (chief complaint)Fo llow up (chief complaint) Acute pulmonary embolism, unspecified pulmonary embolism type, unspecified whether acute cor pulmonale presentPulmo nary nodule Dec- 3 Jocelyn Kaufman. [address] [place] [address], [facility] [address], [place], [id number], . tel:[phone] Referring Provider: Ana Maria Veliz, [address] [place] [address], [address]. tel:[phone] [facility], [address] [place] [address], [id number] , tel:[phone] [facility] MOB No Information Nov-2 3 De La Cruz Everett. [address] [place] [address], [id number], . tel:[phone] Referring Provider: Glenny Whyte, [address] [place] [address], [address]. tel:[phone] OFFICE/OUTPAT IENT VISIT [facility], [address] [place] [address], [id number] , [place] tel:[phone] [facility] injury (chief complaint) Hand pain, right 3 Isabell Murrieta. [address] [place], [place], [id number], [place]. tel:[phone] Referring Provider: Ana Maria Veliz, [address] [place] [address], [address]. tel:[phone] OFFICE/OUTPAT IENT VISIT [facility], [address] [facility], [place], [place], [id number] , [place] [phone] [facility] carotid and echo results (chief complaint) Dyslipidemia Essential (primary) hypertension 3 Erickson Cb. [address] [facility], [address], [place], [address], [place]. tel:[phone] [facility], [address] [place] [address], [id number] , [place] tel:[phone] [facility] No Information 3 Villela Sonja. [address] [place] [address], [id number], [place]. tel:[phone] Referring Provider: Shae Banks, [address] [place] [address] [address], [place], [address]. [phone] OFFICE/OUTPAT IENT VISIT [facility], [address] [place] [address], [id number] , [place] tel:[phone] [facility] knee (chief complaint) Complex tear of medial meniscus of left knee as current injury, subsequent encounter 3 Brown Zurita. [address] [place] [address], [id number], [place]. tel:[phone] Referring Provider: Ana Maria Veliz, [address] [place] [address], [address]. tel:[phone] OFFICE/OUTPAT IENT VISIT [facility], [address] [place] [address], [id number] , [place] tel:[phone] [facility] Medicare preventive (chief complaint) Excessive cerumen in right ear canalAnnual physical examDyslipid emiaEssentia l (primary) hypertension 3 Urban Mclaughlin. [address] [place], [place], On license of [facility], . [phone] [facility], [address] [place] [address], [id number] , [place] tel: [phone] [facility] Out Patient No Information 3 Erickson Vivar. [address] [facility], [address], [place], On license of [facility], [place]. tel:[phone] Referring Provider: Cb Almendarez, [address] [place] [address], On license of [facility]. [phone] [facility], [address] [place] [address], [id number] , tel: [phone] [facility] No Information 2 Erickson Vivar. [address] [place] [address], [address], [address], [place]. tel:[phone] OFFICE/OUTPAT IENT VISIT [facility], [address] [place] [address], [id number] , [place] tel: [phone] [facility] follow up on hypertension (chief complaint) Personal history of pulmonary embolismDysl ipidemiaEsse ntial (primary) hypertension Neck pain 2 Erickson Vivar. [address] [place] [address], [address] [place] [address], [address], [place]. tel:[phone] Referring Provider: Ana Maria Veliz, [address] [place] [address], [address]. tel:[phone] OFFICE/OUTPAT IENT VISIT [facility], [address] [place] [address], [id number] , [place] tel:[phone] [facility] knee (chief complaint) Complex tear of medial meniscus of left knee as current injury, subsequent encounter 2 Brown Zurita. [address] [place] [address], [id number], . tel:[phone] Referring Provider: Ana Maria Veliz, [address] [place] [address], [address]. tel:[phone] OFFICE/OUTPAT IENT VISIT [facility], [address] [place] [address], [id number] , tel:[phone] [facility] Primary Care Building follow up test results (chief complaint) Complex tear of medial meniscus of left knee as current injury, [facility] 2 Urban Mclaughlin. [address] [place] [address], [address], . tel:[phone] Referring Provider: Ana Maria Veliz, [address] [place] [address], [address]. tel:[phone] [facility], [address] [place] [address], [id number] , tel:[phone] [facility] MOB No Information 2 Villela Sonja. [address] [place] [address], [id number], [place]. tel:[phone] Referring Provider: Lissette RIOS, [address] [place] [address], On license of [facility]. tel:[phone] [facility], [address] [place] [address], [id number] , tel:[phone] [facility] Primary Care [facility] FLU SHOT (chief complaint) No Information 2 Urban Mclaughlin. [address] [place] [address], [address], . tel:[phone] Referring Provider: Ana Maria Veliz, [address] [place] [address], [address]. tel:[phone] OFFICE/OUTPAT IENT VISIT [facility], [address] [place] [address], [id number] , tel:[phone] [facility] Primary Care Building follow up urgent care (chief complaint) Body mass index [BMI] 28.0-28.9, adultPosteri or knee pain, left Sep-1 3-202 2 Urban Mclaughlin. [address] [place] [address], [address], [place]. tel:[phone] [facility], [address] [place] [address], [id number] , [place] tel:[phone] [facility] No Information Sep-1 0-202 2 Manohar Casillas. [address] [place] [address], [id number], [place]. tel:[phone] Referring Provider: Emma Spencer, [address] [place] [address], [address]. tel:[phone] OFFICE/OUTPAT IENT VISIT EST [facility], [address] [place] [address], [id number] , [place] tel:[phone] Patients Home Left leg pain (chief complaint) Body mass index [BMI] 27.0-27.9, adultOther chronic painChronic pain of left knee Sep-1 0-202 2 Tj Carter. [address] [place] [address], [id number], [place]. tel:[phone] Referring Provider: Ana Maria Veliz, [address] [place] [address], [address]. tel:[phone] [facility], [address] [place] [address], [id number] , [place] tel:[phone] [facility] Posterior knee pain, left Sep-0 9-202 2 Andrew Randa. [address] [place] [address], [id number], [place]. tel:[phone] Referring Provider: Lissette RIOS, [address] [place] [address], [address]. tel:[phone] [facility], [address] [place] [address], [id number] , [place] tel:[phone] [facility] Posterior knee pain, left Sep-0 7-202 2 Andrew Randa. [address] [place] [address], [id number], [place]. tel:[phone] Referring Provider: Lissette RIOS, [address] [place] [address], [address]. tel:[phone] [facility], [address] [place] [address], [id number] , [place] tel:[phone] [facility] Posterior knee pain, left Sep-0 2-202 2 Seright John. [address] [place] [address], [address], [place]. tel:[phone] Referring Provider: Lissette RIOS, [address] [place] [address], [address]. tel:[phone] [facility], [address] [place] [address], [id number] , [place] tel:[phone] [facility] Posterior knee pain, left Aug-3 - 2 Andrew Randa. [address] [place] [address], [id number], [place]. tel:[phone] Referring Provider: Lissette RIOS, [address] [place] [address], [address]. tel:[phone] [facility], [address] [place] [address], [id number] , [place] tel:[phone] [facility] Posterior knee pain, left Aug-2 2 Andrew Randa. [address] [place] [address], [id number], [place]. tel:[phone] Referring Provider: Lissette RIOS, [address] [place] [address], [address]. tel:[phone] [facility], [address] [place] [address], [id number] , [place] tel:[phone] [facility] Posterior knee pain, left Aug- 2 Andrew Randa. [address] [place] [address], [id number], [place]. tel:[phone] Referring Provider: Lissette RIOS, [address] [place] [address], On license of [facility]. [phone] OFFICE/OUTPAT IENT VISIT EST [facility], [address] [place] [address], [place], [place], [id number] , [place] tel:[phone] [facility] 4 month follow up (chief complaint) Body mass index [BMI] 28.0-28.9, adultBasal cell carcinoma (BCC) of scalpPosteri or knee pain, leftEssentia l (primary) hypertension Dyslipidemia 2 Urban Mclaughlin. [address] [place] [address], On license of [facility], [place]. tel:[phone] [facility], [address] [place] [address], [place], [id number] , [place] tel:[phone] [facility] Posterior knee pain, left 2 Andrew Randa. [address] [place] [address], [id number], [place]. tel:[phone] Referring Provider: Lissette RIOS, [address] [place] [address], On license of [facility]. tel:[phone] [facility], [address] [place] [address] [place], [place], [id number] , [place] tel:[phone] [facility] Posterior knee pain, left 2 Seright John. [address] [place] [address], [address], [place]. tel:[phone] Referring Provider: Lissette RIOS, [address] [place] [address], On license of [facility]. tel:[phone] [facility], [address] [place] [address] [place], [id number] , [place] tel:[phone] [facility] Posterior knee pain, left 2 Seright John. [address] [place] [address], [address], [place]. tel:[phone] Referring Provider: Lissette RIOS, [address] [place] [address], [address] tel:[phone] [facility], [address] [place] [address] [place], [place], [id number] , tel:[phone] [facility] Posterior knee pain, left 2 Seright John. [address] [place] [address], On license of [facility], . tel:[phone] Referring Provider: Lissette RIOS, [address] [place] [address], On license of [facility]. tel:[phone] [facility], [address] [place] [address] [place], [place], [id number] , tel:[phone] [facility] Posterior knee pain, left 2 Serlee Lopez. [address] [place] [address], On license of [facility], . tel:[phone] Referring Provider: Lissette RIOS, [address] [place] [address], On license of [facility]. [phone] [facility], [address] [place] [address] [place], [place], [id number] , tel:[phone] [facility] posterior left knee pain (chief complaint) Posterior knee pain, left 2 Andrew Randa. [address] [place] [address], [id number], . tel:[phone] Referring Provider: Lisestte RIOS, [address] [place] [address], On license of [facility]. tel:[phone] OFFICE/OUTPAT IENT VISIT [facility], [address] [place] [address] [place], [place], [id number] , tel:[phone] [facility] knee pain (chief complaint) Body mass index [BMI] 29.0-29.9, adultPosteri or knee pain, left 2 Urban Mclaughlin. [address] [place] [address], On license of [facility], . tel:[phone] OFFICE/OUTPAT IENT VISIT [facility], [address] [place] [address], [place], [place], [id number] , tel:[phone] [facility] Follow Up of hypertension (chief complaint) Post-COVID syndromeHx pulmonary embolism 2 Erickson Vivar. [address] [place] [address], [address] [place] [address], [address], . tel:[phone] Referring Provider: Cb Almendarez, [address] [place] [address], [address]. tel:[phone] [facility], [address] [place] [address], [id number] , tel:[phone] [facility] Primary Care Building No Information 2 Manohar Casillas. [address] [place] [address], [id number], [place]. tel:[phone] Referring Provider: Lissette RIOS, [address] [place] [address], [address]. tel:[phone] OFFICE/OUTPAT IENT VISIT [facility], [address] [place] [address], [id number] , tel:[phone] [facility] Primary Care Building leg pain (chief complaint)Co ugh (chief complaint)qu estions about blood thinner (chief complaint)no te for dentist (chief complaint) Body mass index [BMI] 29.0-29.9, adultHx pulmonary embolismNoct urnal coughPain in left leg 2 Urban Mclaughlin. [address] [place] [address], [address], . tel:[phone] OFFICE/OUTPAT IENT VISIT [facility], [address] [place] [address], [id number] , tel:[phone] [facility] MOB stress test results (chief complaint) Jaw painHx pulmonary embolismDysl ipidemiaEsse ntial (primary) hypertension Dec- 2 Erickson Vivar. [address] [facility], [address], [place], [address], . tel:[phone] Referring Provider: Ana Maria Veliz, [address] [place] [address], [address]. tel:[phone] [facility], [address] [facility], [place], [id number] , [place] tel:[phone] [facility] Out Patient No Information 2 Erickson Vivar. [address] [facility], [address], [place], [address], [place]. tel:[phone] Referring Provider: Cb Almendarez, [address] [facility] [address], [place], [address]. tel:[phone] [facility], [address] [facility], [place], [place], [id number] , [place] tel:[phone] [facility] No Information 2 Maria Esther Matta. [address] [facility], [place], [place], [id number], [place]. tel:[phone] [facility], [address] [facility], [place], [place], [id number] , [place] tel:[phone] [facility] No Information 2 Erickson Vivar. [address] [facility], [address], [place], [address], [place]. tel:[phone] OFFICE/OUTPAT IENT VISIT EST [facility], [address] [facility], [place], [place], [id number] , [place] tel:[phone] [facility] Pulmonary embolism (chief complaint) Body mass index [BMI] 30.0-30.9, adultPulmona ry noduleAcute pulmonary embolism, unspecified pulmonary embolism type, unspecified whether acute cor pulmonale present 2 Jocelyn Kaufman. [address] [facility], [address], [place], [place], [id number], [place]. tel:[phone] Referring Provider: Ana Maria Veliz, [address] [place] [address], [address]. tel:[phone] [facility], [address] [facility], [place], [place], [id number] , [place] tel:[phone] [facility] No Information 2 Louie Kyle. [address] [place], [id number], . tel:[phone] Referring Provider: Shae Banks, [address] [place] [address] [address], [place], [address]. tel:[phone] OFFICE/OUTPAT IENT VISIT [facility], [address] [place] [address], [id number] , tel:[phone] [facility] Consult (chief complaint) Scoliosis, unspecified scoliosis type, unspecified spinal regionPain in jaw not originating in temporomandi bular jointAtypica l chest painEssentia l (primary) hypertension Pulmonary embolism, unspecified chronicity, unspecified pulmonary embolism type, unspecified whether acute cor pulmonale present 2 Erickson Vivar. [address] [place] [address], [address], [place], On license of [facility], . tel:[phone] Referring Provider: Ana Maria Veilz, [address] [place] [address], [address]. tel:[phone] [facility], [address] [place] [address], [id number] , tel:[phone] [facility] No Information 2 Louie Kyle. [address] [place] [address], [id number], . tel:[phone] Referring Provider: Lissette RIOS, [address] [place] [address], On license of [facility]. tel:[phone] OFFICE/OUTPAT IENT VISIT [facility], [address] [place] [address], [id number] , tel:[phone] [facility] hypertriglyc erdemia (chief complaint)Ba ck pain (chief complaint) Body mass index [BMI] 29.0-29.9, adultFlank painDivertic ulosisElevat ed liver enzymes 2 Urban Mclaughlin. [address] [place] [address], On license of [facility], . tel:[phone] OFFICE/OUTPAT IENT VISIT [facility], [address] [place] [address], [place], [id number] , [place] tel:[phone] [facility] Hospital follow up PE (chief complaint)Ab normal Pulmonary Study (chief complaint)Fo llow up (chief complaint) Body mass index [BMI] 29.0-29.9, adultHistory of breast cancerAcute pulmonary embolism, unspecified pulmonary embolism type, unspecified whether acute cor pulmonale presentPulmo nary nodule 2 Jocelyn K[address]man. [address] [place] [address], [address], [place], [place], [id number], [place]. tel:[phone] Referring Provider: Ana Maria Veliz, [address] [place] [address], [address]. tel:[phone] [facility], [address] [place] [address], [place], [id number] , [place] tel:[phone] [facility] ER No Information 2 Cici Powell. [address] [place] [address], [address], . tel:[phone] OFFICE/OUTPAT IENT VISIT [facility], [address] [place] [address], [place], [id number] , [place] tel:[phone] [facility] Primary Care Building Medicare preventive (chief complaint) Body mass index [BMI] 28.0-28.9, adultOther pulmonary embolism without acute cor pulmonaleHea lth care maintenanceI nvasive lobular carcinoma of left breast in femaleHistor y of bilateral mastectomyMi xed hyperlipidem iaHypertrigl yceridemiaSt age 3 chronic kidney disease, unspecified whether stage 3a or 3b CKDElevated liver enzymesSolit wendie pulmonary noduleAcute left-sided low back pain without sciatica 2 Urban Mclaughlin. [address] [place] [address], [address], . tel:[phone] [facility], [address] [place] [address], [place], [id number] , [place] tel:[phone] [facility] Primary Care Building No Information 2 Maria Esther Matta. [address] [facility], [place], [place], [id number], [place]. tel:[phone] Trans care mgmt [address] [facility], [address] [facility], [place], [id number] , [place] [phone] [facility] Primary Care Building hosp fu (chief complaint) Body mass index [BMI] 28.0-28.9, adultImpacte d cerumen of left earSolitary pulmonary noduleOther pulmonary embolism without acute cor pulmonale Aug- 1 Urban Mclaughlin. [address] [facility], [place], [address], [place]. tel:[phone] [facility], [address] [facility], [place], [place], [id number] , [place] tel: [phone] [facility] In Patient Other pulmonary embolism without acute cor pulmonalePer chad history of malignant neoplasm of breastAbnorm al coagulation profilePure hypercholest erolemia, unspecifiedC hest pain, unspecified 1 Veliz [place]. [address] [place], [place], [id number], [place]. tel:[phone], [address] [facility], [place], [id number] , [place] tel:[phone] [facility] In Patient Personal history of malignant neoplasm of breastPerson al history of COVID-19Soli tary pulmonary noduleOther pulmonary embolism without acute cor pulmonale 1 Jocelyn Kaufman. [address] [facility], [address], [place], [place], [id number], [place]. tel:[phone] [facility], [address] [facility], [place], [id number] , [place] tel:[phone] [facility] In Patient Personal history of malignant neoplasm of breastAbnorm al coagulation profilePure hypercholest erolemia, unspecifiedO ther chest painSolitary pulmonary noduleOther pulmonary embolism without acute cor pulmonale 1 Veliz River. [address], [place], [place], [id number], [place]. tel:[phone] [address], [address], [place], [id number] , [place] tel: [phone] [facility] In Patient Chest pain, unspecified 1 Sol Post. [address] [facility], [place], [place], [id number], [place]. tel:[phone] Referring Provider: Ana Maria Veliz, [address] [facility], [place], [address]. [phone]ARE FIRST HOUR [facility], [address] [facility], [place], [id number] , [place] tel: [phone] [facility] In Patient Personal history of malignant neoplasm of breastPure hypercholest erolemia, unspecifiedA bnormal coagulation profileChest pain, unspecified 1 Jose Alfredo Holman. [address] [facility], [place], [place], [id number], [place]. tel:[phone] [facility] [facility], [address], [place], [id number] , [place] tel: [phone] [facility] In Patient Other pulmonary embolism without acute cor pulmonalePer chad history of malignant neoplasm of breastAbnorm al coagulation profilePure hypercholest erolemia, unspecifiedC hest pain, unspecified 1 Jose Alfredo Holman. [address] [place], [place], [id number], [place]. tel:[phone] V[address] [facility], [address], [place], [id number] , [place] tel: [phone] [facility] ER No Information 1 Rafa Alves. [address] [facility], [place], [place], [id number], [place]. tel:[phone] [facility], [address], [place], [id number] , [place] tel:[phone] [facility] rapid covid test (chief complaint) Encounter for screening for COVID-19 1 Luis Felipe Calderón. [address] [place] [address], [id number], . tel:[phone] Referring Provider: Ana Maria Veliz, [address] [place] [address], [address]. tel:[phone] [facility], [address] [place] [address], [id number] , tel:[phone] [facility] Covid Swab (chief complaint) Encounter for screening for COVID-19 1 Oly Matthews. [address] [place] [address], [id number], . tel:[phone] Referring Provider: Ana Maria Veliz, [address] [place] [address], [address]. tel:[phone] [facility], [address] [place] [address], [place], [place], [id number] , tel:[phone] [facility] Primary Care [facility] No Information 1 Urban Mclaughlin. [address] [place] [address], [address] [place] [address]. tel:[phone] [facility], [address] [place] [address], [place], [place], [id number] , tel:[phone] [facility] Primary Care [facility] flu shot (chief complaint) No Information 1 Urban Mclaughlin. [address] [place] [address], [address] [place] [address]. tel:[phone] [facility], [address] [place] [address], [id number] , tel:[phone] [facility] Primary Care Building medicare preventive (chief complaint) Body mass index (BMI) 29.0-29.9, [facility] maintenanceS tage 3 chronic kidney disease, unspecified whether stage 3a or 3b CKDInvasive lobular carcinoma of right breast, stage 2Hypertrigly ceridemiaGas tro-esophage al reflux disease without esophagitisE levated liver enzymes 1 Urban Mclaughlin. [address] [place] [address], On license of [facility], . tel:[phone] [facility], [address] [place] [address], [id number] , tel:[phone] [facility] Primary Care Building No Information 1 Louie Kyle. [address] [place] [address], [id number], [place]. tel:[phone] Referring Provider: Lissette RIOS, [address] [place] [address], On license of [facility]. tel:[phone] OFFICE/OUTPAT IENT VISIT [facility], [address] [place] [address], [address] [place] [address] , tel:[phone] [facility] Primary Care Building chronic conditions (chief complaint) Body mass index (BMI) 28.0-28.9, adultElevate d liver enzymes 1 Urban Mclaughlin. [address] [place] [address], On license of [facility], . tel:[phone] OFFICE/OUTPAT IENT VISIT [facility], [address] [place] [address], [id number] , tel:[phone] [facility] Primary Care Building chronic conditions (chief complaint) Body mass index (BMI) 28.0-28.9, adultHealth care maintenanceI nvasive lobular carcinoma of right breast, stage 2Stage 3 chronic kidney disease, unspecified whether stage 3a or 3b CKDHypertrig lyceridemiaM ixed hyperlipidem iaGastro-eso phageal reflux disease without esophagitis 1 Urban Mclaughlin. [address] [place] [address], On license of [facility], . tel:[phone] OFFICE/OUTPAT IENT VISIT [facility], [address] [place] [address], [id number] , tel:[phone] [facility] Primary Care Building chronic conditions (chief complaint) Body mass index (BMI) 28.0-28.9, adultMixed hyperlipidem iaHistory of bilateral mastectomyNe vusHypertrig lyceridemiaH ealth care maintenanceS coliosis due to degenerative disease of spine in adult patientStage 3 chronic kidney disease, unspecified whether stage 3a or 3b CKDSeasonal allergiesGas tro-esophage al reflux disease without esophagitis 1 Karena Salinas. [address] [place], [place], [id number], [place]. tel:[phone] [facility], [address] [place] [address], [id number] , [place] tel:[phone] [facility] Primary Care [facility] No Information 0 Karena Salinas. [address] [place], [place], [id number], [place]. tel:[phone] [facility], [address] [place] [address], [id number] , [phone] [facility] Primary Care [facility] No Information 0 Louie Saroj. [address] [place] [address], [id number], [place]. tel:[phone] Referring Provider: Rita Hassan, [address] [place] [address], [address]. tel:[phone] [facility], [address] [place] [address], [id number] , [place] [phone] [facility] Primary Care [facility] No Information 0 Louie Saroj. [address] [place] [address], [id number], [place]. tel:[phone] Referring Provider: Rita Hassan, [address] [place] [address], [address]. tel:[phone] OFFICE/OUTPAT IENT VISIT EST [facility], [address] [place] [address], [id number] , [phone] [facility] Primary Care [facility] chronic conditions (chief complaint) Body mass index (BMI) 27.0-27.9, adultHiatal herniaS/P bilateral mastectomyHe alth care maintenanceL eft leg painScoliosi s due to degenerative disease of spine in adult patientDysph agia, unspecifiedS easonal allergiesPur e hypercholest erolemia, unspecifiedG carissa-esopha geal reflux disease without esophagitisS tage 3 chronic kidney disease, unspecified whether stage 3a or 3b CKD 0 Karena Salinas. [address] [place], [place], [id number], [place]. tel:[phone] OFFICE/OUTPAT IENT VISIT [facility], [address] [facility], [place], [place], [id number] , [place] tel:[phone] [facility] Primary Care Building ear lavage (chief complaint) Body mass index (BMI) 26.0-26.9, adultBilater al impacted cerumen 0 Karena Salinas. [address] [place], [place], [id number], [place]. tel:[phone] [facility], [address] [place], [place], [id number] , [place] tel:[phone] [facility] Primary Care [facility] No Information 0 Karena Salinas. [address] [place], [place], [id number], [place]. tel:[phone] [facility], [address] [place], [place], [id number] , [place] tel:[phone] [facility] Primary Care [facility] No Information 0 Louie Saroj. [address] [place], [place], [id number], [place]. tel:[phone] Referring Provider: Rita Hassan, [address] [place], [address]. tel:[phone] OFFICE/OUTPAT IENT VISIT [facility], [address] [facility], [place], [place], [id number] , [place] tel:[phone] [facility] Primary Care Building chronic conditions (chief complaint) Body mass index (BMI) 26.0-26.9, adultHealth care maintenanceE sophagitis, unspecifiedS easonal allergiesChr onic coughImpacte d cerumen of both earsChronic kidney disease, stage 3 (moderate)Pu re hypercholest erolemia, unspecifiedP rimary cancer of left breastGastro -esophageal reflux disease without esophagitis 0 Karena Rita. [address] [place], [place], [id number], [place]. tel:[phone] [facility], [address] [place] [address], [place], [place], [id number] , [place] tel:[phone] [facility] Primary Care Building No Information 0 Karena Salinas. [address] [place], [place], [id number], [place]. tel:[phone] PHONE E/M BY PHYS 11-[address] [facility], [address] [place] [address], [id number] , [place] tel:[phone] [facility] MOB No Information 0 Monika Vir. [address] [place] [address], [id number], [place]. tel:[phone] [facility], [address] [place] [address], [place], [place], [id number] , [place] tel:[phone] [facility] MOB Post Op (chief complaint) Other specified postprocedur al statesPrimar y cancer of left breast 0 Fisemeka Peter. [address] [place], [place], [id number], [place]. tel:[phone] Referring Provider: Ana Maria Veliz, [address] [place] [address], [address]. tel:[phone] [facility], [address] [place] [address], [id number] , [place] tel:[phone] [facility] Primary Care Building No Information 0 Maria Esther Matta. [address] [facility] [place], [id number], [place]. tel:[phone] [facility], [address], [place], [id number] , [place] tel:[phone] [facility] MOB Post OP (chief complaint) Other specified postprocedur al statesPrimar y cancer of left breast Apr-0 0 Agapito Sotomayor. [address] [facility], [place], [place], [id number], [place]. tel:[phone] Trans care mgmt [address] [facility], [address], [place], [id number] , [place] tel:[phone] [facility] Primary Care Building hosp fu (chief complaint) Pure hypercholest erolemia, unspecifiedG carissa-esopha geal reflux disease without esophagitisC hronic kidney disease, stage 3 (moderate)Hi story of bilateral mastectomyPr imary cancer of left breast Nov- 0 Karena Salinas. [address] [place], [place], [id number], [place]. tel: [phone] HOSPITAL DISCHARGE DAY [facility], [address], [place], [place], [id number] , [place] tel: [phone] [facility] In Patient No Information Nov-2 0 Karuna Martin. [address] [place], [place], [id number], [place]. tel: [phone] [facility], [address], [place], [place], [id number] , [place] tel:[phone] [facility] In Patient No Information Nov-2 0 Agapito Sotomayor. [address] [place], [place], [id number], [place]. tel:[phone] [facility], [address], [place], [id number] , [place] tel: [phone] [facility] MOB No Information Nov-2 0 Louie Kyle. [address] [place], [place], [id number], [place]. tel:[phone] Referring Provider: Bran Altman, [address] [place], [address]. tel:[phone] [facility], [address] [facility], [place], [place], [id number] , tel: [phone] [facility] No Information 0 Agapito Sotomayor. [address] [place], [place], [id number], [place]. tel:[phone] OFFICE/OUTPAT IENT VISIT [facility], [address] [facility], [place], [place], [id number] , [place] tel: [phone] [facility] lesion(s) (chief complaint) Body mass index (BMI) 27.0-27.9, adultNeoplas m of uncertain behavior of skinSkin lesion 0 Abhishekmarimar Cassie. [address] [place] [address], [id number], [place]. tel:[phone] Referring Provider: Ana Maria Veliz, [address] [place] [address], [address]. tel:[phone] OFFICE/OUTPAT IENT VISIT [facility], [address] [place], [place], [id number] , tel:[phone] [facility] Breast cancer (chief complaint) Body mass index (BMI) 27.0-27.9, adultPrimary cancer of left breast 0 Agapito Sotomayor. [address] [place], [place], [id number], [place]. tel:[phone] Referring Provider: Ana Maria Veliz, [address] [place] [address], [address]. tel:[phone] [facility], [address] [place], [place], [id number] , [place] tel:[phone] [facility] not seen (chief complaint) No Information Nov- 0 Agapito Sotomayor. [address] [place], [place], [id number], [place]. tel:[phone] Referring Provider: Ana Maria Veliz, [address] [place] [address], [address]. tel:[phone] OFFICE/OUTPAT IENT VISIT [facility] [facility], [address] [facility], [place], [place], [id number] , tel:[phone] [facility] HX: Left Breast Cancer (chief complaint) No Information 0 Monika Vir. [address] [place], [place], [id number], [place]. tel:[phone] [facility], [address] [place] [address], [place], [place], [id number] , tel:[phone] [facility] No Information 0 Louie Saroj. [address] [place], [place], [id number], . tel:[phone] Referring Provider: Елена Rea, [address] [place] [address], [address]. tel:[phone] OFFICE/OUTPAT IENT VISIT [facility], [address] [facility], [place], [place], [id number] , tel:[phone] [facility] No Information [address] [place] [address], [id number], [place]. tel:[phone] OFFICE/OUTPAT IENT VISIT [facility], [address] [place] [address], [id number] , tel:[phone] [facility] 6 month follow up (chief complaint) Body mass index (BMI) 27.0-27.9, adultRyan hayes 0 Adrianna Jeffers. [address] [place] [address], [id number], . tel:[phone] Referring Provider: Ana Maria Veliz, [address] [place] [address], [address]. tel:[phone] [facility], [address] [place], [place], [id number] , [place] tel:[phone] [facility] No Information 0 Edwige Nelson. [address] [place] [address], [id number], [place]. tel:[phone] [facility], [address] [place] [address], [id number] , [place] tel: [phone] [facility] Primary Care Building No Information 9 Louie Saroj. [address] [place], [place], [id number], [place]. tel:[phone] Referring Provider: Rita Hassan, [address] [place] [address], [address]. tel:[phone] [facility], [address] [place] [address], [id number] , tel: [phone] [facility] MOB No Information 9 Adrianna Jeffers. [address] [place] [address], [id number], [place]. tel:[phone] OFFICE/OUTPAT IENT VISIT EST [facility], [address] [place] [address], [id number] , [place] tel:[phone] [facility] MOB lesion(s) (chief complaint) Body mass index (BMI) 28.0-28.9, adultNeoplas m of uncertain behavior of skinSkin lesion 9 Oly Matthews. [address] [place] [address], [id number], [place]. tel:[phone] Referring Provider: Ana Maria Veliz, [address] [place] [address], [address]. tel:[phone] [facility], [address] [place], [place], [id number] , [place] tel:[phone] [facility] Primary Care Building No Information 9 Louie Saroj. [address] [place] [address], [id number], [place]. tel:[phone] Referring Provider: Ana Maria Veliz, [address] [place] [address], [address]. tel:[phone] [facility], [address] [place] [address], [id number] , tel:[phone] [facility] MOB No Information 0 9 Louie Saroj. [address] [place] [address], [id number], . tel:[phone] Referring Provider: Ana Maria Veliz, [address] [place] [address], [address]. [phone] [facility], [address] [place] [address], [id number] , tel:[phone] [facility] MOB No Information 0 9 Louie Saroj. [address] [place] [address], [id number], . tel:[phone] Referring Provider: Rita Hassan, [address] [place] [address], [address]. tel:[phone] OFFICE/OUTPAT IENT VISIT [facility], [address] [place] [address], [id number] , tel:[phone] [facility] Primary Care Building chronic conditions (chief complaint) Body mass index (BMI) 27.0-27.9, adultChronic nonintractab le headache, unspecified headache typeAtypical [facility] eartburnPure hypercholest erolemia, unspecifiedC hronic kidney disease, stage 3 (moderate)Ga stro-esophag eal reflux disease without esophagitis 2 0 9 Karena Salinas. [address] [place] [address], [id number], . tel:[phone] OFFICE/OUTPAT IENT VISIT [facility], [address] [place] [address], [id number] , tel:[phone] [facility] Cough (chief complaint) Body mass index (BMI) 27.0-27.9, adultPost-vi ral cough syndrome 9 Antony De. [address] [facility], [facility] [address], [place], [place], [id number], . tel:[phone] Referring Provider: Kenisha Hardy, [address] [facility] [address], [place], [address]. tel:[phone] [facility], [address] [facility], [place], [id number] , [place] [phone] [facility] Primary Care Building flu vac (chief complaint) No Information 9 Karena Rita. [address] [place], [place], [id number], [place]. tel:[phone] OFFICE/OUTPAT IENT VISIT [facility], [address] [facility], [place], [place], [id number] , [phone] [facility] MOB follow up visit (chief complaint) Body mass index (BMI) 27.0-27.9, adultHeartbu rnEsophagiti s, unspecifiedD uodenitis without bleeding 9 Adrianna Jeffers. [address] [place], [place], [id number], [place]. tel:[phone] Referring Provider: Ana Maria Veliz, [address] [place] [address], [address]. tel:[phone] [facility], [address] [facility], [place], [id number] , tel:[phone] [facility] Patient No Information 9 Adrianna Jeffers. [address] [place], [place], [id number], [place]. tel:[phone] Referring Provider: Ana Maria Veliz, [address] [place] [address], [address]. [phone] OFFICE/OUTPAT IENT VISIT [facility], [address] [facility], [place], [place], [id number] , tel:[phone] [facility] Primary Care Building chronic conditions (chief complaint)Fo llow up on lab test(s) (chief complaint) Body mass index (BMI) 27.0-27.9, adultAtypica l [facility] care maintenanceF amily history of malignant neoplasm of digestive organsGastro -esophageal reflux disease without esophagitisS coliosis due to degenerative disease of spine in adult patientTempo rary high blood pressureJuve nile idiopathic scoliosis of thoracolumba r regionDyspha jordy, unspecifiedC hronic kidney disease, stage 3 (moderate)Pu re hypercholest erolemia, unspecified Feb-0 9 Karena Rita. [address] [place], [place], [id number], [place]. tel:[phone] [facility], [address] [place] [address], [id number] , tel:[phone] [facility] Primary Care Building No Information 9 Karena Salinas. [address] [place] [address], [id number], [place]. tel:[phone] OFFICE/OUTPAT IENT VISIT [facility], [address] [place] [address], [id number] , [place] tel:[phone] [facility] MOB Consultation (chief complaint) Body mass index (BMI) 29.0-29.9, adultDysphag ia, unspecifiedE ncounter for screening for malignant neoplasm of colonRyan hayes 9 Adrianna Jeffers. [address] [place] [address], [id number], [place]. tel:[phone] Referring Provider: Ana Maria Veliz, [address] [place] [address], [address]. tel:[phone] OFFICE/OUTPAT IENT VISIT [facility], [address] [place] [address], [id number] , [place] tel:[phone] [facility] sore throat (chief complaint)ea r pain (chief complaint) Body mass index (BMI) 29.0-29.9, adultUpper respiratory tract infection, unspecified typeExcessiv e cerumen in both ear canals [address] [facility], [address] [place], [place], [id number] , [place] tel:[phone] [facility] Primary Care Building medicare preventive (chief complaint) Temporary high blood pressureChro jeremy kidney disease, stage 3 (moderate)Ju venile idiopathic scoliosis of thoracolumba r regionPure hypercholest erolemia, unspecifiedA nnual physical exam 8 Karena Salinas. [address] [place], [place], [id number], [place]. tel:[phone] [facility], [address] [place] [address], [id number] , [place] tel:[phone] [facility] Primary Care [facility] No Information 8 Karena Salinas. [address] [place] [address], [id number], [place]. tel:[phone] [facility], [address] [place] [address], [id number] , [place] tel:[phone] [facility] Primary Care [facility] No Information 8 Karena Salinas. [address] [place] [address], [id number], [place]. tel:[phone] Referring Provider: Rita Hassan, [address] [place] [address], [address]. tel:[phone] OFFICE/OUTPAT IENT VISIT EST [facility], [address] [place] [address], [id number] , [place] tel:[phone] [facility] MOB annual exam (chief complaint)[facility] ([facility]) Body mass index (BMI) 29.0-29.9, adultEncount er for screening for malignant neoplasm of cervixEncntr for slubber operator exam (general) (routine) w/o abn findings 8 Gretel Bailey. [address] [place], [place], [id number], . tel:[phone] Referring Provider: Ana Maria Veliz, [address] [place] [address], [address]. tel:[phone] [facility], [address] [place] [address], [id number] , tel:[phone] [facility] Primary Care Building No Information 0 8 Louie Kyle. [address] [place] [address], [id number], . tel:[phone] Referring Provider: Rita Hassan, [address] [place] [address], [address]. tel:[phone] OFFICE/OUTPAT IENT VISIT [facility], [address] [place] [address], [id number] , tel:[phone] [facility] Primary Care Building chronic conditions (chief complaint)Fo llow up on lab test(s) (chief complaint) Chronic kidney disease (CKD), stage II (mild)Health care maintenance uvenile idiopathic scoliosis of thoracolumba r regionTempor wendie high blood pressurePure hypercholest erolemia, unspecified 0 7 8 Karena Salinas. [address] [place] [address], [id number], . tel:[phone] Referring Provider: Ana Maria Veliz, [address] [place] [address], [address]. tel:[phone] [facility], [address] [place] [address], [id number] , [place] tel:[phone] [facility] No Information 2 0 8 Elpidio Echeverria. [address] [place] [address], [id number], . tel:[phone] Referring Provider: Juwan Magallanes, [address] [place] [address], [address]. tel:[phone] OFFICE/OUTPAT IENT VISIT [facility], [address] [place] [address], [id number] , tel:[phone] [facility] Primary Care Building Left calf pain (chief complaint) Body mass index (BMI) 29.0-29.9, adultHealth care maintenance hronic kidney disease, stage 3 (moderate)Le ft leg painJuvenile idiopathic scoliosis of thoracolumba r regionPure hypercholest erolemia, unspecifiedT emporary high blood pressure 1-201 8 Karena Rita. [address] [place] [address], [id number], [place]. tel:[phone] Referring Provider: Saw Barlow, [address] [place] [address], [address]. tel:[phone] OFFICE/OUTPAT IENT VISIT [facility], [address] [place] [address], [place], [place], [id number] , tel:[phone] [facility] MOB history of actinic keratosis (chief complaint)le clint(s) (chief complaint) Body mass index (BMI) 29.0-29.9, adultFollow up 8-201 7 Baghaei Cassie. [address] [place] [address], [id number], [place]. tel:[phone] Referring Provider: Ana Maria Veliz, [address] [place] [address], [address]. tel:[phone] [facility], [address] [place] [address], [id number] , tel:[phone] [facility] Primary Care Building flu shot (chief complaint) No Information 0 7 Celine Jud Devan. [address] [place] [address], [id number], [place]. tel:[phone] Referring Provider: Ana Maria Veliz, [address] [place] [address], [address]. tel:[phone] OFFICE/OUTPAT IENT VISIT [facility], [address] [place] [address], [id number] , [place] tel:[phone] [facility] MOB history of actinic keratosis (chief complaint) Actinic keratosisBod y mass index (BMI) 29.0-29.9, adultSkin lesion [facility]. [address] [place], [place], [id number], [place]. tel:[phone] Referring Provider: Ana Maria Veliz, [address] [place] [address], [place], [address]. tel:[phone] OFFICE/OUTPAT IENT VISIT [facility], [address] [place] [address], [place], [place], [id number] , [place] tel:[phone] [facility] MOB lesion(s) (chief complaint)le clint(s) (chief complaint) Actinic keratosisBod y mass index (BMI) 28.0-28.9, adultSkin lesion [facility]. [address] [place], [place], [id number], [place]. tel:[phone] Referring Provider: Ana Maria Veliz, [address] [place] [address], [address]. tel:[phone] OFFICE/OUTPAT IENT VISIT [facility], [address] [place] [address], [place], [place], [id number] , [place] tel:[phone] [facility] injury (chief complaint) Body mass index (BMI) 28.0-28.9, adultInfecti on of skinDog bite, initial encounter Karena Salinas. [address] [place], [place], [id number], [place]. tel:[phone] Referring Provider: Rita Hassan, [address] [place] [address], [address]. tel:[phone] PER PM [facility]+ YR [facility], [address] [place] [address], [place], [place], [id number] , [place] tel:[phone] [facility] Primary Care Building Annual Exam (chief complaint)hy perlipidemia (chief complaint)Fo llow up on lab test(s) (chief complaint)ck big toes (chief complaint) Body mass index (BMI) 28.0-28.9, adultTempora ry high blood pressureOnyc homycosisVis it for annual health examination 7 Celine Hartman. [address] [place], [place], [id number], [place]. tel:[phone] OFFICE/OUTPAT IENT VISIT EST [facility], [address] [place], [place], [id number] , [place] tel:[phone] [facility] ear pain (chief complaint) Body mass index (BMI) 28.0-28.9, adultBilater al impacted cerumen 7 Karena Salinas. [address] [place], [place], [id number], [place]. tel:[phone] OFFICE/OUTPAT IENT VISIT [facility], [address] [place], [place], [id number] , [place] tel:[phone] [facility] MOB lesion(s) (chief complaint) Body mass index (BMI) 29.0-29.9, adultHx of basal cell carcinoma excisionVira l warts, unspecified type 7 Luis Eduardo Knowles. [address] [place], [place], [id number], [place]. tel:[phone] Referring Provider: Ana Maria Veliz, [address] [place] [address], [address]. tel:[phone] [facility], [address] [place], [place], [id number] , [place] tel:[phone] [facility] Primary Care Building No Information 7 Louie Kyle. [address] [place], [place], [id number], [place]. tel:[phone] Referring Provider: Jud Berger, [address] [place], [address]. tel:[phone] OFFICE/OUTPAT IENT VISIT [facility], [address] [place], [place], [id number] , [place] tel:[phone] [facility] Primary Care Building hyperlipidem ia (chief complaint)me ds refill (chief complaint) Body mass index (BMI) 28.0-28.9, adultScreeni ng mammogram, encounter yby07-hyhtma lent pneumococcal polysacchari de vaccine indication of patient age greater than 65 yearsExcessi ve ear wax, bilateralChr onic kidney disease (CKD), stage II (mild)Juveni le idiopathic scoliosis of thoracolumba r regionPure hypercholest erolemia, unspecified 7 Celine Hartman. [address] [place] [address], [id number], [place]. tel:[phone] Referring Provider: Jud Berger, [address] [place] [address], [address]. tel:[phone] [facility], [address] [place], [place], [id number] , tel:[phone] [facility] lesion(s) (chief complaint) Body mass index (BMI) 28.0-28.9, adultViral warts, unspecified type 7 [facility]. [address] [place] [address], [id number], [place]. tel:[phone] Referring Provider: Ana Maria Veliz, [address] [place] [address], [address]. tel:[phone] OFFICE/OUTPAT IENT VISIT [facility], [address] [place], [place], [id number] , tel:[phone] [facility] lesion(s) (chief complaint) Body mass index (BMI) 29.0-29.9, adultViral wart, unspecified 7 [facility]. [address] [place] [address], [id number], [place]. tel:[phone] Referring Provider: Ana Maria Veliz, [address] [place] [address] [place], [address]. [phone] [facility], [address] [facility], [place], [place], [id number] , tel:[phone] [facility] Left thigh pain Dec-3 0-201 6 Seright John. [address]89 [facility], [place], [address], . tel:[phone] Referring Provider: Ana Maria Veliz, [address] [place] [address], [place], [address]. [phone] [facility], [address] [facility], [place], [place], [id number] , tel:[phone] [facility] Left thigh pain Dec-2 8-201 6 Andrew Randa. [address] [place] [address], [id number], . tel:[phone] Referring Provider: Ana Maria Veliz, [address] [place] [address], [place], [address]. [phone] [facility], [address] [facility], [place], [place], [id number] , tel:[phone] [facility] Left thigh pain Dec-2 3-201 6 Andrew Randa. [address] [place], [place], [id number], [place]. tel:[phone] Referring Provider: Ana Maria Veliz, [address] [place] [address], [place], [address]. [phone] [facility], [address] [facility], [place], [place], [id number] , tel:[phone] [facility] Left thigh pain Dec-2 1-201 6 Andrew Randa[address] [place] [address], [place], [place], [id number], [place]. tel:[phone] Referring Provider: Ana Maria Veliz, [address] [place] [address], [place], [address]. tel:[phone] OFFICE/OUTPAT IENT VISIT EST [facility], [address] [facility], [place], [id number] , [place] tel:[phone] [facility] lesion(s) (chief complaint)le clint(s) (chief complaint)le clint(s) (chief complaint) Body mass index (BMI) 19 or less, adultSeborrh eic keratosis Aug- 9-201 6 Luis Eduardo Zondree. [address] [place], [place], [id number], [place]. tel:[phone] Referring Provider: Ana Maria Veliz, [address] [place] [address], [place], [address]. tel:[phone] [facility], [address] [facility], [place], [id number] , [place] tel:[phone] [facility] Left thigh pain Dec-1 5-201 6 Andrew Randa. [address] [place] [address], [id number], [place]. tel:[phone] Referring Provider: Ana Maria Veliz, [address] [place] [address], [place], [address]. tel:[phone] [facility], [address] [facility], [place], [place], [id number] , [place] tel:[phone] [facility] Left thigh pain Aug-1 2-201 6 Andrew Randa. [address] [place], [place], [id number], [place]. tel:[phone] Referring Provider: Ana Maria Veliz, [address] [facility], [place], [address]. tel:[phone] [facility], [address]262 [facility], [place], [place], [id number] , [place] tel:[phone] [facility] Left thigh pain Dec-0 9-201 6 Andrew Randa. [address] [place], [place], [id number], [place]. tel:[phone] Referring Provider: Ana Maria Veliz, [address] [place] [address], [address]. tel:[phone] [facility], [address] [facility], [place], [place], [id number] , [place] tel:[phone] [facility] Physical Therapy left hip pain (chief complaint) Left thigh pain 7-201 6 Andrew Randa. [address] [place], [place], [id number], [place]. tel:[phone] Referring Provider: Ana Maria Veliz, [address] [place] [address], [address]. tel:[phone] OFFICE/OUTPAT IENT VISIT [facility], [address] [place] [address], [place], [place], [id number] , [place] tel:[phone] [facility] Primary Care Building hyperlipidem ia (chief complaint)le ft leg pain (chief complaint) Body mass index (BMI) 29.0-29.9, adultR[facility]remier [facility] health maintenanceJ uvenile idiopathic scoliosis of thoracolumba r regionChroni c kidney disease (CKD), stage II (mild)Pure hypercholest erolemia, unspecifiedB miky cell carcinoma of skin of scalp and neckLeft leg pain 5-201 6 Celine Jud Devan. [address] [place] [address], [id number], [place]. tel:[phone] [facility], [address] [place] [address], [place], [place], [id number] , tel:[phone] [facility] Primary Care Building No Information 6-201 6 Louie Saroj. [address] [place] [address], [id number], [place]. tel:[phone] Referring Provider: Ana Maria Veliz, [address] [place] [address], [address]. tel:[phone] OFFICE/OUTPAT IENT VISIT [facility], [address] [place] [address], [place], [id number] , [place] tel:[phone] [facility] Primary Care Building left leg pain (chief complaint) Body mass index (BMI) 29.0-29.9, adultChronic kidney disease, stage 1Left thigh pain 6 Denver Dalton. [address] [place], [place], [id number], [place]. tel:[phone] [facility], [address] [place], [id number] , [place] tel:[phone] [facility] No Information Pierre Poewr . [address] [place], [place], [id number], [place]. tel:[phone] OFFICE/OUTPAT IENT VISIT [facility], [address] [place], [place], [id number] , [place] tel:[phone] [facility] lesion(s) (chief complaint) Basal cell carcinoma of skin of scalp and neck Pierre Power . [address] [place], [place], [id number], [place]. tel:[phone] Referring Provider: Ana Maria Veliz, [address] [place] [address], [address]. tel:[phone] [facility], [address]94 [facility], [place], [place], [id number] , tel:[phone] [facility] No Information No Information Referring Provider: Ana Maria Veliz, [address] [place] [address], [address]. tel:[phone] OFFICE/OUTPAT IENT VISIT [facility], [address] [place], [place], [id number] , [place] tel:[phone] [facility] lesion(s) (chief complaint)le clint(s) (chief complaint) Seborrheic keratosesBas al cell carcinoma of skin of other parts of faceBasal cell carcinoma of skin of scalp and neckMelanocy tic nevi, unspecifiedO ther benign neoplasm of skin, unspecified Pierre Power . [address] [place], [place], [id number], [place]. tel:[phone] Referring Provider: Ana Maria Veliz, [address] [place] [address], [address]. tel:[phone] OFFICE/OUTPAT IENT VISIT EST [facility], [address] [facility], [place], [place], [id number] , [place] tel:[phone] [facility] MOB lesion(s) (chief complaint) Basal cell carcinoma of skin of scalp and neckDyschrom ic skin lesion of pinta Tuan-3 0-201 6 Jegapragasa n Chantely . [address] [place], [place], [id number], [place]. tel:[phone] Referring Provider: Vernon Golden, [address] [place] [address], [address]. tel:[phone] [facility], [address] [place] [address], [id number] , [place] tel:[phone] [facility] Primary Care Building Rectal bleeding (chief complaint) Idiopathic scoliosis with double curvature of thoracic spineExterna l hemorrhoids with other complication Bright red rectal bleeding Feb-2 6 Veliz Venkamma. [address] [place], [place], [id number], [place]. tel:[phone] Referring Provider: Ana Maria Veliz, [address] [place] [address], [address]. tel:[phone] [facility], [address] [place] [address], [id number] , [place] tel:[phone] [facility] Primary Care Building No Information Feb-2 2- 6 Veliz Venkamma. [address] [place], [place], [id number], [place]. tel:[phone] [facility], [address] [place] [address], [place], [place], [id number] , [place] tel:[phone] [facility] Primary Care Building No Information Feb-0 8- 6 Louie Saroj. [address] [place], [place], [id number], [place]. tel:[phone] Referring Provider: Krystle Goff, [address] [facility], [place], [address]. tel:[phone] OFFICE/OUTPAT IENT VISIT [facility], [address] [facility], [place], [place], [id number] , [place] tel:[phone] [facility] Primary Care [facility] Well womens exam (chief complaint) Body mass index (BMI) 28.0-28.9, adultScolios is due to degenerative disease of spine in adult patientIncon tinenceChron ic kidney disease, stage 3 (moderate)We ll woman exam with routine gynecologica l exam Denver Dalton. [address] [place], [place], [id number], [place]. tel:[phone] OFFICE/OUTPAT IENT VISIT [facility], [address] [facility], [place], [place], [id number] , [place] tel:[phone] [facility] Primary Care [facility] Skin Lesion/ Rash (chief complaint) Body mass index (BMI) 28.0-28.9, adultMelanoc ytic nevi, unspecifiedC hronic kidney disease, stage 3 (moderate) Denver Dalton. [address] [place], [place], [address], [place]. tel:[phone] [facility], [address] [facility], [place], [place], [id number] , [place] tel:[phone] [facility] Primary [facility] No Information Louie Saroj. [address] [place], [place], [id number], [place]. tel:[phone] Referring Provider: Krystle Goff, [address] [place], [address]. tel:[phone] OFFICE/OUTPAT IENT VISIT [facility], [address] [facility], [place], [place], [id number] , [place] tel:[phone] [facility] Primary Care [facility] Musculoskele domo pain (chief complaint) Arm pain, rightBasal cell carcinoma of skin of scalp and neckChronic kidney disease, stage 1Body mass index (BMI) 28.0-28.9, adult Nov-3 0- 6 Denver Dalton. [address] [place], [place], [id number], [place]. tel:[phone] OFFICE/OUTPAT IENT VISIT EST [facility], [address] [facility], [place], [place], [id number] , [place] tel:[phone] [facility] ear pain (chief complaint)so re throat (chief complaint) Body mass index (BMI) 29.0-29.9, adultLeft otitis media, unspecified chronicity, unspecified otitis media type 6 Oly Cassie. [address] [place], [place], [address], [place]. tel:[phone] [facility], [address] [place] [address], [id number] , [place] tel:[phone] [facility] Primary Care Building encounter for flu vaccine (chief complaint) Body mass index (BMI) 29.0-29.9, adultEncount er for immunization 5 Jose Alfredo Rodgers. [address] [place], [place], [id number], [place]. tel:[phone] Referring Provider: Ana Maria Veliz, [address] [place] [address], [address]. tel:[phone] [facility], [address] [place] [address], [id number] , [place] tel:[phone] [facility] Primary Care Building No Information Jose Alfredo Rodgers. [address] [place], [place], [id number], [place]. tel:[phone] [facility], [address] [place] [address], [id number] , [place] tel:[phone] [facility] Primary Care Building No Information 5 Louie Kyle. [address] [place], [place], [id number], [place]. tel:[phone] Referring Provider: Ana Maria Veliz, [address], [place], [address]. tel:[phone] OFFICE/OUTPAT IENT VISIT EST [facility], [address], [place], [place], [address] , [place] tel:[phone] [facility] Primary [facility] follow up on mammogram from 06/20 (chief complaint) Dense breasts 2-201 5 Jose Alfredo Rodgers. [address], [place], [place], [id number], [place]. tel:[phone] Referring Provider: Ana Maria Veliz, [address], [place], [address]. tel:[phone] [facility], [address] [facility], [place], [place], [address] , [place] [phone] [facility] No Information 5- 5 Jose Alfredo Rodgers. [address], [place], [place], [address], [place]. tel:[phone] [facility], [address], [place], [place], [address] , [place] tel:[phone] [facility] Primary Care Building flu vaccine (chief complaint) Flu vaccine need 6- 4 Jose Alfredo Rodgers. [address], [place], [place], [address], [place]. tel:[phone] Referring Provider: Ana Maria Veliz, [address], [place], [address]. tel:[phone] [facility], [address], [place], [id number] , [place] tel:[phone] [facility] Primary Care Building No Information 0- 4 Louie Saroj. [address], [place], [place], [address], [place]. tel:[phone] Referring Provider: Ana Maria Veliz, [address] [place], [address]. tel:[phone] OFFICE/OUTPAT IENT VISIT [facility], [address] [facility], [place], [place], [id number] , tel:[phone] [facility] Primary Care Building follow up on lab test(s) (chief complaint)hy perlipidemia (follow up) (chief complaint) Other and unspecified hyperlipidem iaChronic kidney disease (CKD) stage G3a/A2, moderat 4 Jose Alfredo Rodgers. [address] [place], [place], [address], [place]. tel:[phone] Referring Provider: Ana Maria Veliz, [address] [place] [address], [address]. tel:[phone] OFFICE/OUTPAT IENT VISIT [facility], [address] [facility], [place], [place], [id number] , tel:[phone] [facility] Primary Care Building preventive exam (chief complaint)hy perlipidemia (follow up) (chief complaint) Other and unspecified hyperlipidem iaChronic kidney disease, Stage I 4 Jose Alfredo Rodgers. [address] [place] [address], [id number], . tel:[phone] Referring Provider: Ana Maria Veliz, [address] [place] [address], [address]. tel:[phone] OFFICE/OUTPAT IENT VISIT [facility], [address] [place], [place], [id number] , [place] tel:[phone] [facility] MOB lesion(s) (chief complaint) BCC (basal cell carcinoma), scalp/neck 4 Pierre Power . [address] [place], [place], [id number], [place]. tel:[phone] OFFICE/OUTPAT IENT VISIT [facility], [address] [facility], [place], [place], [address] , [place] tel:[phone] [facility] MOB lesion(s) (chief complaint) BCC (basal cell carcinoma), scalp/neck 4 Jegapragasa n Vannithamby . [address] [place], [place], [id number], [place]. tel:[phone] Referring Provider: Ana Maria Veliz, [address] [place] [address], [address]. tel:[phone] OFFICE/OUTPAT IENT VISIT [facility], [address] [facility], [place], [place], [address] , [place] tel: [phone] [facility] MOB lesion(s) (chief complaint)le clint(s) (chief complaint) Other malignant neoplasm of scalp and skin of neckBCC (basal cell carcinoma), scalp/neck 4 Jegapragasa n Vannithamby . [address] [place], [place], [address], [place]. tel:[phone] OFFICE/OUTPAT IENT VISIT [facility], [address]60 [facility] [place], [id number] , [place] tel: [phone] [facility] MOB lesion(s) (chief complaint)le clint(s) (chief complaint) Other malignant neoplasm of scalp and skin of neckBCC (basal cell carcinoma), scalp/neck - 4 Jegapragasa n Vannithamby . [address] [place], [place], [id number], [place]. tel:[phone] Referring Provider: Ana Maria Veliz, [address] [place] [address], [address]. tel:[phone] OFFICE/OUTPAT IENT VISIT [facility], [address] [facility] [place], [place], [address] , [place] tel:[phone] [facility] MOB lesion(s) (chief complaint) BCC (basal cell carcinoma), scalp/neck 4 Jegapragasa n Vannithamby . [address] [place], [place], [address], [place]. tel:[phone] Referring Provider: Jannet Ramos , [address] [place], [address]. tel:[phone] OFFICE/OUTPAT IENT VISIT [facility], [address] [place], [place], [id number] , [place] [phone] [facility] MOB egd fu (chief complaint) DYSPHAGIA NOSGERD 4 Adrianna Jeffers. [address] [place], [place], [id number], [place]. tel:[phone] Referring Provider: Ana Maria Veliz, [address] [place] [address], [address]. tel:[phone] [facility], [address] [place] [address], [id number] , [phone] [facility] Out Patient No Information 3 Adrianna Jeffers. [address] [place], [place], [id number], [place]. tel:[phone] Referring Provider: nAa Maria Veliz, [address] [place] [address], [address]. tel:[phone] OFFICE/OUTPAT IENT VISIT [facility], [address] [place] [address], [id number] , [place] [phone] [facility] MOB lesion(s) (chief complaint) BCC (basal cell carcinoma), scalp/neck Jul- 3 Pierre Power . [address] [place], [place], [id number], [place]. tel:[phone] Referring Provider: Ana Maria Veliz, [address] [place] [address], [address]. tel:[phone] OFFICE/OUTPAT IENT VISIT [facility], [address] [place], [place], [id number] , [place] tel:[phone] [facility] Primary Care Building bumps on head (chief complaint) BSL CELL CA SCALP/SKN NKBenign neoplasm of skin, site unspecified 3 Denver Dalton. [address] [place], [place], [id number], [place]. tel:[phone] Referring Provider: Ana Maria Veliz, [address] [place] [address], [place], [address]. [phone] [facility], [address] [facility], [place], [place], [address] , [place] tel:[phone] [facility] MOB colonoscopy fu (chief complaint) OverweightSp ecial screening for malignant neoplasms, colonGERD 3 Adrianna Jeffers. [address] [place], [place], [address], [place]. tel:[phone] Referring Provider: Ana Maria Veliz, [address] [place] [address], [place], [address]. [phone] [facility], [address] [facility], [place], [place], [address] , [place] [phone] [facility] Primary Care Building flu vaccine (chief complaint) Flu vaccine need 3 Jose Alfredo Rodgers. [address] [place], [place], [address], [place]. tel:[phone] Referring Provider: Ana Maria Veliz, [address] [place] [address], [place], [address]. [phone] [facility], [address] [facility], [place], [place], [address] , [place] tel:[phone] [facility] Out [facility] No Information 3 Adrianna Jeffers. [address] [place], [place], [id number], [place]. tel:[phone] Referring Provider: Ana Maria Veliz, [address] [place] [address], [place], [address]. tel:[phone] [facility], [address] [facility], [place], [place], [address] , [place] tel:[phone] [facility] Primary Care Building No Information 3 Handler Armand. [address] [place], [place], [id number], [place]. tel:[phone] Referring Provider: Ana Maria Veliz, [address] [place] [address], [address]. tel:[phone] OFFICE/OUTPAT IENT VISIT [facility], [address] [facility], [place], [place], [address] , tel:[phone] [facility] MOB colonoscopy screen (chief complaint) Family history of colon cancer 3 Adrianna Jeffers. [address] [place], [place], [address], [place]. tel:[phone] Referring Provider: Ana Maria Veliz, [address] [place] [address], [address]. tel:[phone] OFFICE/OUTPAT IENT VISIT [facility], [address] [facility], [place], [place], [id number] , [place] tel:[phone] [facility] MOB No Information 0 3-201 3 Monika Vir. [address] [place], [place], [id number], [place]. tel:[phone] [facility], [address] [place] [address], [place], [place], [address] , [place] tel:[phone] [facility] Primary Care Building No Information 3 Jose Alfredo Rodgers. [address] [place], [place], [id number], [place]. tel:[phone] OFFICE/OUTPAT IENT VISIT [facility], [address] [facility], [place], [place], [id number] , [place] tel:[phone] [facility] MOB No Information 3 Monika Vir. [address] [place], [place], [address], [place]. tel:[phone] Referring Provider: Ana Maria Veliz, [address] [place] [address], [address]. tel:[phone] [facility], [address] [facility], [place], [place], [address] , [place] tel:[phone] [facility] Primary Care [facility] No Information 3 Handler Armand. [address] [facility], [place], [place], [address], [place]. tel:[phone] Referring Provider: Ana Maria Veliz, [address] [place] [address], [place], [address]. tel:[phone] OFFICE/OUTPAT IENT VISIT [facility], [address] [facility], [place], [place], [address] , [place] tel: [phone] [facility] Primary Care [facility] follow up on lab test(s) (chief complaint)hy perlipidemia (follow up) (chief complaint) Renal cyst, rightHyperch olesteremia 3 Veliz Venkamma. [address] [place], [place], [id number], [place]. tel:[phone] [facility], [address] [place] [address], [place], [place], [address] , [place] tel: [phone] [facility] Primary Care [facility] No Information 3 Veliz Aydeeivory. [address] [place], [place], [address], [place]. tel:[phone] OFFICE/OUTPAT IENT VISIT [facility], [address] [facility], [place], [address] , [place] tel: [phone] [facility] Primary Care Building follow up on lab test(s) (chief complaint)hy perlipidemia (follow up) (chief complaint) Nonspecific abnormal results of function study of kidneyHyperc holesterolem ia 3 Veliz Venkamma. [address] [facility], [place], [place], [address], [place]. tel:[phone] [facility], [address] [facility], [place], [place], [address] , [place] tel:[phone] [facility] Primary Care Building No Information 3 Veliz Venkamma. [address] [place] [address], [id number], [place]. tel:[phone] OFFICE/OUTPAT IENT VISIT EST [facility], [address] [place] [address], [place], [place], [id number] , tel:[phone] [facility] Primary Care Building follow up on last visit (chief complaint)hy perlipidemia (follow up) (chief complaint) AnxietyChron ic kidney disease, Stage II (mild)Hyperc holesterolem ia 3 Veliz Venkamma. [address] [place] [address], [id number], [place]. tel:[phone] [facility], [address] [place] [address], [id number] , [place] tel:[phone] [facility] MOB AnxietyChron ic kidney disease, Stage IPalpitation sBradycardia 3 Jose Verma. [address] [place] [address], [address], [place]. tel:[phone] Referring Provider: Bayron Garcia, [address] [place] [address], [address]. tel:[phone] [facility], [address] [place] [address], [id number] , tel:[phone] [facility] MOB No Information 3 Jose Verma. [address] [place] [address], [address], [place]. tel:[phone] Referring Provider: Krystle Goff, [address] [place] [address], [address]. tel:[phone] [facility], [address] [place] [address], [id number] , tel:[phone] [facility] Primary Care Building BP check (chief complaint)EK G (chief complaint)Ch ronic Conditions (chief complaint) Blood pressure check 3 Veliz Venkamma. [address] [place] [address], [id number], [place]. tel:[phone] Referring Provider: Ana Maria Veliz, [address] [place] [address], [address]. tel:[phone] OFFICE/OUTPAT IENT VISIT [facility], [address] [place] [address], [place], [place], [id number] , [place] tel:[phone] [facility] Primary Care [facility] itching all over body (chief complaint)ch est pain (chief complaint)Ch ronic Conditions (chief complaint) Chronic kidney disease (CKD), stage II (mild)Atypic al chest painHypercho lesteremia 3 Veliz Venkelli. [address] [place] [address], [id number], [place]. tel:[phone] OFFICE/OUTPAT IENT VISIT [facility], [address] [place] [address], [id number] , [place] tel:[phone] [facility] Primary Care [facility] cold symptoms (chief complaint)so re throat (chief complaint)co ugh (chief complaint)he adache (chief complaint)fo llow up on lab test(s) (chief complaint) Allergic rhinitisObes ity (BMI 30.0-34.9)Hy percholester emia 3 Veliz Ana Maria. [address] [place] [address], [id number], [place]. tel:[phone] OFFICE/OUTPAT IENT VISIT [facility], [address] [place] [address], [id number] , [place] tel:[phone] [facility] Primary Care [facility] Follow up on ultrasound results (chief complaint) Hypercholest eremiaHyperl ipidemiaElev ated liver function tests 2 Veliz Venkelli. [address] [place] [address], [id number], [place]. tel:[phone] [facility], [address] [place] [address], [id number] , [place] tel:[phone] [facility] Primary Care Building No Information 2 Handler Armand. [address] [place], [place], [id number], . tel:[phone] Referring Provider: Ana Maria Veliz, [address] [place] [address], [address]. tel:[phone] OFFICE/OUTPAT IENT VISIT [facility], [address] [place] [address], [place], [place], [id number] , [place] tel:[phone] [facility] Primary Care Building Pap (chief complaint)hy perlipidemia (follow up) (chief complaint)fo llow up on lab test(s) (chief complaint) ProteinuriaD ecreased GFRDiverticu losis of colonPost-me nopausal atrophic vaginitisHyp erlipidemia LDL goal < 130Pap test, as part of routine gynecologica l examinaInflu skylar Vaccine 2 Jose Alfredo Rodgers. [address] [place] [address], [id number], . tel:[phone] Referring Provider: Ana Maria Veliz, [address] [place] [address], [address]. tel:[phone] [facility], [address] [place] [address], [place], [place], [id number] , [place] tel:[phone] [facility] Primary Care [facility] No Information 2 Handler Armand. [address] [place] [address], [id number], . tel:[phone] Referring Provider: Ana Maria Veliz, [address] [place] [address], [address]. tel:[phone] OFFICE/OUTPAT IENT VISIT [facility], [address] [place] [address], [place], [place], [id number] , [place] tel:[phone] [facility] Primary Care [facility] Follow up on skin mole. (chief complaint) Atypical molesOther screening breast examinationH istory of basal cell carcinomaHyp ercholestero lemiaScolios is (and kyphoscolios is), idiopathicHi atal HerniaDivert iculosis of colon (without mention of hemorrhage)D isorder of bone and cartilage, unspecified Aug-3 0201 2 Velizwilmer Rodgers. [address] [place], [place], [id number], [place]. tel:[phone] OFFICE/OUTPAT IENT VISIT [facility], [address] [facility], [place], [place], [id number] , [place] tel:[phone] [facility] Primary Care Building No Information 2 Denver Dalton. [address] [place], [place], [id number], [place]. tel:[phone] OFFICE/OUTPAT IENT VISIT [facility], [address] [facility], [place], [place], [id number] , [place] tel:[phone] [facility] No Information 2 Karena Rita. [address] [place], [place], [id number], [place]. tel:[phone] OFFICE/OUTPAT IENT VISIT [facility], [address] [facility], [place], [place], [id number] , [place] tel:[phone] [facility] Primary Care Building No Information 2 Jose Alfredo Rodgers. [address] [place], [place], [id number], [place]. tel:[phone] Family History Family Member Type Diagnosis Age At Onset No Information Immunizations Vaccine Date Status Comments FLU HIGH DOSE 65+ administered Source: Ruth slade Immunization Record Influenza vaccine- Flulaval administered Source: New Immunization Record Influenza vaccine- Flulaval administered Source: New Immunization Record (Flu Vacccine) 6 mos and older administer ed Source: New Immunization Record (Flu Vacccine) 6 mos and older administer ed Source: New Immunization Record influenza, intradermal, quadrivalent, preservative free, injectable administered Note: Influenza vacc ine is found in [employer] History ; Source: Source Unspecified tetanus and diphtheria toxoids, adsorbed, preservative free, for adult use (2 Lf of tetanus toxoid and 2 Lf of diphtheria toxoid) administered Note: Td vaccine is found in [employer] [facility] ; Source: Source Unspecified Pneumo (under 5) (PCV7) administered Note : Pneumococcal vaccine is found in [employer] [facility] ; Source: Source Unspecified Influenza, injectable, quadrivalent, preservative free, split virus 3 years or older, [employer]ix Quad administered Note: Infl uenza vaccine is found in [employer] histories ; Source: Source Unspecified Pneumo (2 yrs or older)(PPV) administered Note: Pneumococcal vaccine is found in [employer] histories ; Source: Source Unspecified tetanus and diphtheria toxoids, adsorbed, preservative free, for adult use (2 Lf of tetanus toxoid and 2 Lf of diphtheria toxoid) administered Note: Td vaccine is found in [employer] histories ; Source: Source Unspecified Influenza, injectable, quadrivalent, preservative free, split virus 3 years or older, Fluarix Quad administered Source: Ne w Immunization Record Influenza, injectable, quadrivalent, preservative free, split virus 3 years or older, Fluarix Quad administered Source: Ne w Immunization Record Td, preservative free, (7 yr s and older) administered Note: Td vaccine is found in [facility] history ; Source: Source Unspecified Pneumo (2 yrs or older)(PPV) administered Note: Pneumococcal vaccine is found in [facility] history ; Source: Source Unspecified Fluarix Quad administered Source: New Imm unization Record Td (7 yrs or older) administered Source: New Immunization Record Pneumo (2 yrs or older)(PPV) administered Source: New Immunization Record Prevnar 13 administered Source: New Imm unization Record Flu (split) (3 yrs or older) administered Source: New Immunization Record Flu (split) (3 yrs or older) administered Source: New Immunization Record flu (split) preservative tereso e, 3 yrs or older administered Source: New Immuniza tion Record Flu (split) Preservative Tereso e, 3 Yrs Or Older administered Source: New Immuniza tion Record Zoster vaccine pending Source: New I mmunization Record Prevnar 13 pending Source: New Imm unization Record Payers Payer name Insurance type Covered constitution party ID Authoriza tion(s) [employer] [place] [employer] [place] [id number] [employer] [id number] [facility] [id number] Social History Type Description Quantity Date Captured Comments Alcohol Use Details No Caffeine Use Details Unknown Tobacco Use Status No Information Smoking Status No Information Alcohol Use Details No Caffeine Use Details Tobacco Use Status No Information Smoking Status Never smoker Non-Smoking Tobacco Use Details : No Details Available : No Details Available Alcohol Use Details No Caffeine Use Details 3 cups per day Tobacco Use Status No Information Smoking Status Never smoker Alcohol Use Details No Caffeine Use Details 3 cups per day Tobacco Use Status No Information Smoking Status Never smoker Alcohol Use Details Unknown Caffeine Use Details Unknown Tobacco Use Status No Information Smoking Status No Information Alcohol Use Details No Caffeine Use Details 3 cups per day Tobacco Use Status No Information Smoking Status Never smoker Alcohol Use Details No Caffeine Use Details 3 cups per day Tobacco Use Status No Information Smoking Status Never smoker Alcohol Use Details No Caffeine Use Details 3 cups per day Tobacco Use Status No Information Smoking Status Never smoker Alcohol Use Details Unknown Caffeine Use Details Unknown Tobacco Use Status No Information Smoking Status No Information Alcohol Use Details No Caffeine Use Details 3 cups per day Tobacco Use Status No Information Smoking Status Never smoker Alcohol Use Details Unknown Caffeine Use Details Unknown Tobacco Use Status No Information Smoking Status No Information Alcohol Use Details No Caffeine Use Details 3 cups per day Tobacco Use Status No Information Smoking Status Never smoker Alcohol Use Details No Caffeine Use Details 3 cups per day Tobacco Use Status No Information Smoking Status Never smoker Alcohol Use Details No Caffeine Use Details 3 cups per day Tobacco Use Status No Information Smoking Status Never smoker Alcohol Use Details No Caffeine Use Details 3 cups per day Tobacco Use Status No Information Smoking Status Never smoker Alcohol Use Details No Caffeine Use Details 3 cups per day Tobacco Use Status No Information Smoking Status Never smoker Alcohol Use Details No Caffeine Use Details 3 cups per day Tobacco Use Status No Information Smoking Status Never smoker Alcohol Use Details No Caffeine Use Details 3 cups per day Tobacco Use Status No Information Smoking Status Never smoker Alcohol Use Details No Caffeine Use Details 3 cups per day Tobacco Use Status No Information Smoking Status Never smoker Alcohol Use Details Unknown Caffeine Use Details Unknown Tobacco Use Status No Information Smoking Status No Information Alcohol Use Details No Caffeine Use Details 3 cups per day Tobacco Use Status No Information Smoking Status Never smoker Alcohol Use Details No Caffeine Use Details 3 cups per day Tobacco Use Status No Information Smoking Status Never smoker Alcohol Use Details No Caffeine Use Details 3 cups per day Tobacco Use Status No Information Smoking Status Never smoker Alcohol Use Details Unknown Caffeine Use Details Unknown Tobacco Use Status No Information Smoking Status No Information Alcohol Use Details No Caffeine Use Details 3 cups per day Tobacco Use Status No Information Smoking Status Never smoker Alcohol Use Details No Caffeine Use Details 3 cups per day Tobacco Use Status No Information Smoking Status Never smoker Alcohol Use Details Unknown Caffeine Use Details Unknown Tobacco Use Status No Information Smoking Status No Information Alcohol Use Details Unknown Caffeine Use Details Unknown Tobacco Use Status No Information Smoking Status No Information Alcohol Use Details Unknown Caffeine Use Details Unknown Tobacco Use Status No Information Smoking Status No Information Alcohol Use Details Unknown Caffeine Use Details Unknown Tobacco Use Status No Information Smoking Status No Information Alcohol Use Details No Caffeine Use Details 3 cups per day Tobacco Use Status No Information Smoking Status Never smoker Alcohol Use Details Unknown Caffeine Use Details Unknown Tobacco Use Status No Information Smoking Status No Information Alcohol Use Details Unknown Caffeine Use Details Unknown Tobacco Use Status No Information Smoking Status No Information Alcohol Use Details Unknown Caffeine Use Details Unknown Tobacco Use Status No Information Smoking Status No Information Alcohol Use Details Unknown Caffeine Use Details Unknown Tobacco Use Status No Information Smoking Status No Information Alcohol Use Details Unknown Caffeine Use Details Unknown Tobacco Use Status No Information Smoking Status No Information Alcohol Use Details Unknown Caffeine Use Details Unknown Tobacco Use Status No Information Smoking Status No Information Alcohol Use Details Unknown Caffeine Use Details Unknown Tobacco Use Status No Information Smoking Status No Information Alcohol Use Details Unknown Caffeine Use Details Unknown Tobacco Use Status No Information Smoking Status No Information Alcohol Use Details Unknown Caffeine Use Details Unknown Tobacco Use Status No Information Smoking Status No Information Alcohol Use Details Unknown Caffeine Use Details Unknown Tobacco Use Status No Information Smoking Status No Information Alcohol Use Details Unknown Caffeine Use Details Unknown Tobacco Use Status No Information Smoking Status No Information Alcohol Use Details Unknown Caffeine Use Details Unknown Tobacco Use Status No Information Smoking Status No Information Alcohol Use Details Unknown Caffeine Use Details Unknown Tobacco Use Status No Information Smoking Status No Information Alcohol Use Details No Caffeine Use Details 3 cups per day Tobacco Use Status No Information Smoking Status Never smoker Alcohol Use Details Unknown Caffeine Use Details Unknown Tobacco Use Status No Information Smoking Status No Information Alcohol Use Details No Caffeine Use Details 3 cups per day Tobacco Use Status No Information Smoking Status Never smoker Alcohol Use Details Unknown Caffeine Use Details Unknown Tobacco Use Status No Information Smoking Status No Information Alcohol Use Details No Caffeine Use Details 3 cups per day Tobacco Use Status No Information Smoking Status Never smoker Alcohol Use Details Unknown Caffeine Use Details Unknown Tobacco Use Status No Information Smoking Status No Information Alcohol Use Details No Caffeine Use Details 3 cups per day Tobacco Use Status No Information Smoking Status Never smoker Alcohol Use Details No Caffeine Use Details 3 cups per day Tobacco Use Status No Information Smoking Status Never smoker Alcohol Use Details No Caffeine Use Details 3 cups per day Tobacco Use Status No Information Smoking Status Never smoker Alcohol Use Details No Caffeine Use Details 3 cups per day Tobacco Use Status No Information Smoking Status Never smoker Alcohol Use Details Unknown Caffeine Use Details Unknown Tobacco Use Status No Information Smoking Status No Information Alcohol Use Details Unknown Caffeine Use Details Unknown Tobacco Use Status No Information Smoking Status No Information Alcohol Use Details No Caffeine Use Details Unknown Tobacco Use Status No Information Smoking Status No Information Alcohol Use Details No Caffeine Use Details 3 cups per day Tobacco Use Status No Information Smoking Status Never smoker Alcohol Use Details No Caffeine Use Details 3 cups per day Tobacco Use Status No Information Smoking Status Never smoker Alcohol Use Details No Caffeine Use Details 3 cups per day Tobacco Use Status No Information Smoking Status Never smoker Alcohol Use Details No Caffeine Use Details 3 cups per day Tobacco Use Status No Information Smoking Status Never smoker Alcohol Use Details No Caffeine Use Details 3 cups per day Tobacco Use Status No Information Smoking Status Never smoker Alcohol Use Details No Caffeine Use Details 3 cups per day Tobacco Use Status No Information Smoking Status Never smoker Alcohol Use Details No Caffeine Use Details 3 cups per day Tobacco Use Status No Information Smoking Status Never smoker Alcohol Use Details No Caffeine Use Details 3 cups per day Tobacco Use Status No Information Smoking Status Never smoker Alcohol Use Details No Caffeine Use Details 3 cups per day Tobacco Use Status No Information Smoking Status Never smoker Alcohol Use Details No Caffeine Use Details 3 cups per day Tobacco Use Status No Information Smoking Status Never smoker Alcohol Use Details No Caffeine Use Details 3 cups per day Tobacco Use Status No Information Smoking Status Never smoker Alcohol Use Details No Caffeine Use Details 3 cups per day Tobacco Use Status No Information Smoking Status Never smoker Alcohol Use Details No Caffeine Use Details 3 cups per day Tobacco Use Status No Information Smoking Status Never smoker Alcohol Use Details No Caffeine Use Details 3 cups per day Tobacco Use Status No Information Smoking Status Never smoker Alcohol Use Details No Caffeine Use Details 3 cups per day Tobacco Use Status No Information Smoking Status Never smoker Alcohol Use Details No Caffeine Use Details 3 cups per day Tobacco Use Status No Information Smoking Status Never smoker Alcohol Use Details No Caffeine Use Details 3 cups per day Tobacco Use Status No Information Smoking Status Never smoker Alcohol Use Details No Caffeine Use Details 3 cups per day Tobacco Use Status No Information Smoking Status Never smoker Alcohol Use Details No Caffeine Use Details 3 cups per day Tobacco Use Status No Information Smoking Status Never smoker Alcohol Use Details No Caffeine Use Details 3 cups per day Tobacco Use Status No Information Smoking Status Never smoker Alcohol Use Details No Caffeine Use Details 3 cups per day Tobacco Use Status No Information Smoking Status Never smoker Alcohol Use Details No Caffeine Use Details 3 cups per day Tobacco Use Status No Information Smoking Status Never smoker Alcohol Use Details No Caffeine Use Details 3 cups per day Tobacco Use Status No Information Smoking Status Never smoker Alcohol Use Details No Caffeine Use Details 3 cups per day Tobacco Use Status No Information Smoking Status Never smoker Alcohol Use Details No Caffeine Use Details 3 cups per day Tobacco Use Status No Information Smoking Status Never smoker Alcohol Use Details No Caffeine Use Details 3 cups per day Tobacco Use Status No Information Smoking Status Never smoker Alcohol Use Details No Caffeine Use Details 3 cups per day Tobacco Use Status No Information Smoking Status Never smoker Alcohol Use Details No Caffeine Use Details 3 cups per day Tobacco Use Status No Information Smoking Status Never smoker Alcohol Use Details No Caffeine Use Details 3 cups per day Tobacco Use Status No Information Smoking Status Never smoker Alcohol Use Details No Caffeine Use Details 3 cups per day Tobacco Use Status No Information Smoking Status Never smoker Alcohol Use Details No Caffeine Use Details 3 cups per day Tobacco Use Status No Information Smoking Status Never smoker Alcohol Use Details No Caffeine Use Details 3 cups per day Tobacco Use Status No Information Smoking Status Never smoker Alcohol Use Details Unknown Caffeine Use Details Unknown Tobacco Use Status No Information Smoking Status No Information Alcohol Use Details Unknown Caffeine Use Details Unknown Tobacco Use Status No Information Smoking Status No Information Alcohol Use Details Unknown Caffeine Use Details Unknown Tobacco Use Status No Information Smoking Status No Information Alcohol Use Details Unknown Caffeine Use Details Unknown Tobacco Use Status No Information Smoking Status No Information Alcohol Use Details Unknown Caffeine Use Details Unknown Tobacco Use Status No Information Smoking Status No Information Alcohol Use Details Unknown Caffeine Use Details Unknown Tobacco Use Status No Information Smoking Status No Information Alcohol Use Details Unknown Caffeine Use Details Unknown Tobacco Use Status No Information Smoking Status No Information Alcohol Use Details Unknown Caffeine Use Details Unknown Tobacco Use Status No Information Smoking Status No Information Alcohol Use Details Unknown Caffeine Use Details Unknown Tobacco Use Status No Information Smoking Status No Information Alcohol Use Details No Caffeine Use Details 3 cups per day Tobacco Use Status No Information Smoking Status Never smoker Non-Smoking Tobacco Use Details : No Details Available : No Details Available Alcohol Use Details No Caffeine Use Details 3 cups per day Tobacco Use Status No Information Smoking Status Never smoker Non-Smoking Tobacco Use Details : No Details Available : No Details Available Alcohol Use Details No Caffeine Use Details 3 cups per day Tobacco Use Status No Information Smoking Status Never smoker Alcohol Use Details No Caffeine Use Details 3 cups per day Tobacco Use Status No Information Smoking Status Never smoker Alcohol Use Details No Caffeine Use Details 3 cups per day Tobacco Use Status No Information Smoking Status Never smoker Alcohol Use Details No Caffeine Use Details 3 cups per day Tobacco Use Status No Information Smoking Status Never smoker Non-Smoking Tobacco Use Details : No Details Available : No Details Available Alcohol Use Details Unknown Caffeine Use Details Unknown Tobacco Use Status No Information Smoking Status Never smoker Non-Smoking Tobacco Use Details : No Details Available : No Details Available Alcohol Use Details Unknown Caffeine Use Details Unknown Tobacco Use Status No Information Smoking Status Never smoker Non-Smoking Tobacco Use Details : No Details Available : No Details Available Alcohol Use Details Unknown Caffeine Use Details Unknown Tobacco Use Status No Information Smoking Status Never smoker Non-Smoking Tobacco Use Details : No Details Available : No Details Available Alcohol Use Details No Caffeine Use Details 3 cups per day Tobacco Use Status No Information Smoking Status Never smoker Alcohol Use Details Unknown Caffeine Use Details Unknown Tobacco Use Status No Information Smoking Status No Information Alcohol Use Details Unknown Caffeine Use Details Unknown Tobacco Use Status No Information Smoking Status No Information Alcohol Use Details Unknown Caffeine Use Details Unknown Tobacco Use Status No Information Smoking Status No Information Alcohol Use Details No Caffeine Use Details 3 cups per day Smoking Status Never smoker Alcohol Use Details No Caffeine Use Details 3 cups per day Smoking Status Never smoker Alcohol Use Details No Caffeine Use Details Unknown Smoking Status Never smoker Alcohol Use Details No Caffeine Use Details Unknown Smoking Status Never smoker Alcohol Use Details No Caffeine Use Details Unknown Tobacco Use Status No Information Smoking Status Never smoker Non-Smoking Tobacco Use Details : No Details Available : No Details Available Alcohol Use Details No Caffeine Use Details Unknown Tobacco Use Status No Information Smoking Status Never smoker Non-Smoking Tobacco Use Details : No Details Available : No Details Available Alcohol Use Details No Caffeine Use Details Unknown Tobacco Use Status No Information Smoking Status Never smoker Non-Smoking Tobacco Use Details : No Details Available : No Details Available Alcohol Use Details No Caffeine Use Details 3 cups per day Smoking Status Never smoker Alcohol Use Details No Caffeine Use Details Unknown Tobacco Use Status No Information Smoking Status Never smoker Non-Smoking Tobacco Use Details : No Details Available : No Details Available Alcohol Use Details No Caffeine Use Details 3 cups per day Smoking Status Never smoker Alcohol Use Details No Caffeine Use Details 3 cups per day Smoking Status Never smoker Alcohol Use Details No Caffeine Use Details 3 cups per day Smoking Status Never smoker Alcohol Use Details No Caffeine Use Details 3 cups per day Smoking Status Never smoker Alcohol Use Details No Caffeine Use Details 3 cups per day Smoking Status Never smoker Alcohol Use Details No Caffeine Use Details 3 cups per day Smoking Status Never smoker Alcohol Use Details No Caffeine Use Details 3 cups per day Smoking Status Never smoker Alcohol Use Details No Caffeine Use Details soda 3 cups per day Smoking Status Never smoker Alcohol Use Details No Caffeine Use Details soda 3 cups per day Smoking Status Never smoker Alcohol Use Details No Caffeine Use Details soda 3 cups per day Smoking Status Never smoker Alcohol Use Details No Caffeine Use Details soda 3 cups per day Tobacco Use Status No Information Smoking Status Never smoker Non-Smoking Tobacco Use Details : No Details Available : No Details Available Alcohol Use Details No Caffeine Use Details soda 3 cups per day Tobacco Use Status No Information Smoking Status Never smoker Non-Smoking Tobacco Use Details : No Details Available : No Details Available Alcohol Use Details No Caffeine Use Details soda 3 cups per day Tobacco Use Status No Information Smoking Status Never smoker Non-Smoking Tobacco Use Details : No Details Available : No Details Available Alcohol Use Details Unknown Caffeine Use Details Unknown Tobacco Use Status No Information Smoking Status No Information Alcohol Use Details Unknown Caffeine Use Details Unknown Tobacco Use Status No Information Smoking Status No Information Alcohol Use Details Unknown Caffeine Use Details Unknown Tobacco Use Status No Information Smoking Status No Information Alcohol Use Details Unknown Caffeine Use Details Unknown Tobacco Use Status No Information Smoking Status No Information Alcohol Use Details Unknown Caffeine Use Details Unknown Tobacco Use Status No Information Smoking Status No Information Alcohol Use Details Unknown Caffeine Use Details Unknown Tobacco Use Status No Information Smoking Status No Information Alcohol Use Details Unknown Caffeine Use Details Unknown Tobacco Use Status No Information Smoking Status No Information Alcohol Use Details Unknown Caffeine Use Details Unknown Tobacco Use Status No Information Smoking Status No Information Alcohol Use Details Unknown Caffeine Use Details Unknown Tobacco Use Status No Information Smoking Status No Information Alcohol Use Details No Caffeine Use Details 3 cups per day Tobacco Use Status No Information Smoking Status Never smoker Alcohol Use Details Unknown Caffeine Use Details Unknown Smoking Status No Information Alcohol Use Details Unknown Caffeine Use Details Unknown Smoking Status No Information Alcohol Use Details Unknown Caffeine Use Details Unknown Smoking Status No Information Alcohol Use Details Unknown Caffeine Use Details Unknown Smoking Status No Information Alcohol Use Details Unknown Caffeine Use Details Unknown Smoking Status No Information Alcohol Use Details Unknown Caffeine Use Details Unknown Tobacco Use Status No Information Smoking Status No Information Alcohol Use Details Unknown Caffeine Use Details Unknown Smoking Status No Information Sex Female Vital Signs Date / Time: Height Weight BMI Pulse Rate Blood Pressure Temperature Respiratory Rate Body Surface Area Head Circumference Head Circ. Percentile W[place]./[place]. Percentile BMI percentile Pulse Ox Inhaled Ox 2:44 PM 65.00 in 79.787 kg (175.90 lbs) 29.2 7 kg/m eter (2) 122/78 mm[Hg] 10:52 AM 65.00 in 75.000 kg (165.00 lbs) 27.5 0 kg/m eter (2) 65 /min 120/80 mm[Hg] 95 % 10:10 AM 66.00 in 84.232 kg (185.70 lbs) 29.9 7 kg/m eter (2) 84 /min 149/89 mm[Hg] 1:46 PM 66.00 in 84.141 kg (185.50 lbs) 29.9 4 kg/m eter (2) 73 /min 140/80 mm[Hg] 98.30 F 20 /min 1.98 meter(2) 100 % 11:21 AM 66.00 in 82.735 kg (182.40 lbs) 29.4 4 kg/m eter (2) 92 /min 120/82 mm[Hg] 95 % 9:37 AM 66.00 in 82.554 kg (182.00 lbs) 29.3 8 kg/m eter (2) 85 /min 142/90 mm[Hg] 98.50 F 20 /min 1.96 meter(2) 94 % 10:05 AM 66.00 in 82.100 kg (181.00 lbs) 29.2 1 kg/m eter (2) 85 /min 126/76 mm[Hg] 97.60 F 20 /min 1.96 meter(2) 100 % 9:55 AM 66.00 in 83.234 kg (183.50 lbs) 29.6 2 kg/m eter (2) 81 /min 173/91 mm[Hg] 1.97 meter(2) 3:37 PM 66.00 in 84.368 kg (186.00 lbs) 30.0 2 kg/m eter (2) 77 /min 145/75 mm[Hg] 18 /min 1.98 meter(2) 97 % 10:29 AM 66.00 in 82.191 kg (181.20 lbs) 29.2 5 kg/m eter (2) 79 /min 130/76 mm[Hg] 96.10 F 16 /min 1.96 meter(2) 93 % 4:11 PM 66.00 in 82.781 kg (182.50 lbs) 29.4 6 kg/m eter (2) 85 /min 132/88 mm[Hg] 18 /min 1.96 meter(2) 95 % 3:19 PM 66.00 in 81.193 kg (179.00 lbs) 28.8 9 kg/m eter (2) 78 /min 151/91 mm[Hg] 1.94 meter(2) 7:58 AM 66.00 in 81.193 kg (179.00 lbs) 28.8 9 kg/m eter (2) 63 /min 149/73 mm[Hg] 1.94 meter(2) 9:35 AM 66.00 in 83.461 kg (184.00 lbs) 29.7 0 kg/m eter (2) 85 /min 132/80 mm[Hg] 98.00 F 20 /min 1.97 meter(2) 95 % 3:45 PM 66.00 in 83.325 kg (183.70 lbs) 29.6 5 kg/m eter (2) 62 /min 159/80 mm[Hg] 1.97 meter(2) 9:21 AM 66.00 in 81.193 kg (179.00 lbs) 28.8 9 kg/m eter (2) 62 /min 130/70 mm[Hg] 97.90 F 20 /min 1.94 meter(2) 96 % 7:54 AM 66.00 in 81.737 kg (180.20 lbs) 29.0 8 kg/m eter (2) 61 /min 142/80 mm[Hg] 1.95 meter(2) 1:11 PM 66.00 in 81.193 kg (179.00 lbs) 28.8 9 kg/m eter (2) 81 /min 116/80 mm[Hg] 98.40 F 20 /min 1.94 meter(2) 96 % 10:14 AM 66.00 in 79.832 kg (176.00 lbs) 28.4 1 kg/m eter (2) 84 /min 122/70 mm[Hg] 97.40 F 20 /min 1.93 meter(2) 96 % 10:36 AM 66.00 in 80.240 kg (176.90 lbs) 28.5 5 kg/m eter (2) 86 /min 126/80 mm[Hg] 1.93 meter(2) 98 % 9:43 AM 66.00 in 79.878 kg (176.10 lbs) 28.4 2 kg/m eter (2) 99 /min 124/64 mm[Hg] 98.00 F 16 /min 1.93 meter(2) 94 % 2:03 PM 66.00 in 81.964 kg (180.70 lbs) 29.1 7 kg/m eter (2) 76 /min 145/88 mm[Hg] 16 /min 94 % 10:28 AM 160/82 mm[Hg] 10:24 AM 66.00 in 83.007 kg (183.00 lbs) 29.5 4 kg/m eter (2) 66 /min 173/91 mm[Hg] 98.50 F 20 /min 1.97 meter(2) 95 % 21 % 8:49 AM 66.00 in 80.785 kg (178.10 lbs) 28.7 5 kg/m eter (2) 80 /min 136/82 mm[Hg] 1.94 meter(2) 97 % 3:38 PM 66.00 in 81.238 kg (179.10 lbs) 28.9 1 kg/m eter (2) 10:17 AM 66.00 in 80.739 kg (178.00 lbs) 28.7 3 kg/m eter (2) 87 /min 120/70 mm[Hg] 97.70 F 20 /min 1.94 meter(2) 98 % 11:59 AM 66.00 in 80.830 kg (178.20 lbs) 28.7 6 kg/m eter (2) 62 /min 138/76 mm[Hg] 1.94 meter(2) 97 % 3:42 PM 66.00 in 79.560 kg (175.40 lbs) 28.3 1 kg/m eter (2) 82 /min 140/73 mm[Hg] 97.10 F 16 /min 100 % 9:54 AM 66.00 in 78.789 kg (173.70 lbs) 28.0 4 kg/m eter (2) 79 /min 138/71 mm[Hg] 97.30 F 18 /min 1.92 meter(2) 96 % 1:25 PM 66.00 in 78.381 kg (172.80 lbs) 27.8 9 kg/m eter (2) 81 /min 146/83 mm[Hg] 96.70 F 1.91 meter(2) 98 % 1:00 PM 97.60 F 1:00 PM 97.20 F 1:00 PM 97.30 F 1:00 PM 97.20 F 1:30 PM 97.70 F 1:00 PM 98.20 F 10:04 AM 65.00 in 78.199 kg (172.40 lbs) 28.6 9 kg/m eter (2) 74 /min 122/60 mm[Hg] 97.60 F 18 /min 1.89 meter(2) 100 % 1:00 PM 98.10 F 1:30 PM 98.20 F 1:30 PM 97.60 F 1:00 PM 96.80 F 1:00 PM 97.90 F 7:16 AM 65.00 in 79.379 kg (175.00 lbs) 29.1 2 kg/m eter (2) 68 /min 140/80 mm[Hg] 97.50 F 20 /min 1.91 meter(2) 96 % 1:49 PM 65.00 in 80.150 kg (176.70 lbs) 29.4 0 kg/m eter (2) 85 /min 140/82 mm[Hg] 1.92 meter(2) 97 % 2:22 PM 65.00 in 80.286 kg (177.00 lbs) 29.4 5 kg/m eter (2) 97 /min 118/76 mm[Hg] 97.50 F 20 /min 1.92 meter(2) 96 % 9:58 AM 65.00 in 78.290 kg (172.60 lbs) 28.7 2 kg/m eter (2) 87 /min 142/80 mm[Hg] 1.89 meter(2) 95 % 3:11 PM 65.00 in 81.964 kg (180.70 lbs) 30.0 7 kg/m eter (2) 89 /min 143/82 mm[Hg] 12 /min 1.94 meter(2) 94 % 3:49 PM 65.00 in 79.923 kg (176.20 lbs) 29.3 2 kg/m eter (2) 83 /min 140/88 mm[Hg] 95 % 10:36 AM 65.00 in 80.739 kg (178.00 lbs) 29.6 2 kg/m eter (2) 77 /min 140/70 mm[Hg] 98.30 F 16 /min 1.92 meter(2) 98 % 2:20 PM 65.00 in 81.193 kg (179.00 lbs) 29.7 9 kg/m eter (2) 90 /min 157/86 mm[Hg] 12 /min 94 % 10:34 AM 65.00 in 78.018 kg (172.00 lbs) 28.6 2 kg/m eter (2) 89 /min 124/76 mm[Hg] 98.30 F 20 /min 1.89 meter(2) 96 % 9:06 AM 65.00 in 78.063 kg (172.10 lbs) 28.6 4 kg/m eter (2) 81 /min 118/76 mm[Hg] 98.30 F 20 /min 1.89 meter(2) 96 % 2:25 PM 65.00 in 79.651 kg (175.60 lbs) 29.2 2 kg/m eter (2) 102 /min 139/82 mm[Hg] 98.70 F 20 /min 95 % 2:05 PM 65.00 in 79.016 kg (174.20 lbs) 28.9 9 kg/m eter (2) 87 /min 146/77 mm[Hg] 97.80 F 16 /min 1.90 meter(2) 97 % 9:08 AM 65.00 in 78.335 kg (172.70 lbs) 28.7 4 kg/m eter (2) 71 /min 135/64 mm[Hg] 97.80 F 16 /min 1.90 meter(2) 98 % 9:04 AM 65.00 in 76.884 kg (169.50 lbs) 28.2 1 kg/m eter (2) 84 /min 130/62 mm[Hg] 97.70 F 18 /min 1.88 meter(2) 97 % 9:01 AM 65.00 in 73.931 kg (162.99 lbs) 27.1 2 kg/m eter (2) 68 /min 133/81 mm[Hg] 98.00 F 1.84 meter(2) 98 % 2:29 PM 65.00 in 73.482 kg (162.00 lbs) 26.9 6 kg/m eter (2) 78 /min 137/79 mm[Hg] 98.20 F 16 /min 1.84 meter(2) 96 % 9:56 AM 65.00 in 72.121 kg (159.00 lbs) 26.4 6 kg/m eter (2) 84 /min 158/90 mm[Hg] 96.30 F 14 /min 1.82 meter(2) 96 % 1:26 PM 65.00 in 71.033 kg (156.60 lbs) 26.0 6 kg/m eter (2) 104 /min 144/84 mm[Hg] 1.80 meter(2) 96 % 1:16 PM 65.00 in 73.527 kg (162.10 lbs) 26.9 7 kg/m eter (2) 98 /min 138/77 mm[Hg] 1.84 meter(2) 95 % 10:34 AM 65.00 in 73.028 kg (161.00 lbs) 26.7 9 kg/m eter (2) 93 /min 128/80 mm[Hg] 97.60 F 12 /min 1.83 meter(2) 97 % 9:34 AM 65.00 in 76.249 kg (168.10 lbs) 27.9 7 kg/m eter (2) 75 /min 161/92 mm[Hg] 98.10 F 16 /min 1.87 meter(2) 94 % 21 % 11:17 AM 65.00 in 76.249 kg (168.10 lbs) 27.9 7 kg/m eter (2) 75 /min 161/92 mm[Hg] 1.87 meter(2) 1:09 PM 65.00 in 76.294 kg (168.20 lbs) 27.9 9 kg/m eter (2) 128/78 mm[Hg] 2:02 PM 65.00 in 76.884 kg (169.50 lbs) 28.2 1 kg/m eter (2) 69 /min 131/76 mm[Hg] 97.60 F 16 /min 1.88 meter(2) 95 % 21 % 3:44 PM 65.00 in 75.841 kg (167.20 lbs) 27.8 2 kg/m eter (2) 65 /min 130/89 mm[Hg] 95.70 F 16 /min 1.86 meter(2) 96 % 21 % 6:05 PM 65.00 in 74.843 kg (165.00 lbs) 27.4 6 kg/m eter (2) 70 /min 123/76 mm[Hg] 96.60 F 1.85 meter(2) 96 % 2:53 PM 65.00 in 74.525 kg (164.30 lbs) 27.3 4 kg/m eter (2) 130/80 mm[Hg] 9:05 AM 65.00 in 74.389 kg (164.00 lbs) 27.2 9 kg/m eter (2) 72 /min 135/87 mm[Hg] 97.90 F 12 /min 1.85 meter(2) 96 % 2:47 PM 65.00 in 79.878 kg (176.10 lbs) 29.3 0 kg/m eter (2) 120/74 mm[Hg] 5:10 PM 65.00 in 80.603 kg (177.70 lbs) 29.5 7 kg/m eter (2) 62 /min 167/77 mm[Hg] 96.10 F 1.92 meter(2) 96 % 9:57 AM 110/70 mm[Hg] 9:34 AM 65.00 in 79.832 kg (176.00 lbs) 29.2 9 kg/m eter (2) 73 /min 155/87 mm[Hg] 98.20 F 16 /min 1.91 meter(2) 98 % 9:23 AM 148/82 mm[Hg] 9:02 AM 65.00 in 78.018 kg (172.00 lbs) 28.6 2 kg/m eter (2) 93 /min 126/88 mm[Hg] 99.30 F 12 /min 1.89 meter(2) 97 % 8:06 AM 65.00 in 80.286 kg (177.00 lbs) 29.4 5 kg/m eter (2) 60 /min 128/67 mm[Hg] 97.20 F 1.92 meter(2) 98 % 8:48 AM 65.00 in 79.197 kg (174.60 lbs) 29.0 5 kg/m eter (2) 70 /min 146/89 mm[Hg] 16 /min 1.91 meter(2) 98 % 21 % 10:48 AM 65.00 in 79.424 kg (175.10 lbs) 29.1 4 kg/m eter (2) 56 /min 128/75 mm[Hg] 16 /min 1.91 meter(2) 95 % 21 % 11:08 AM 0.00 in 78.925 kg (174.00 lbs) 28.9 5 kg/m eter (2) 67 /min 127/79 mm[Hg] 16 /min 1.90 meter(2) 96 % 21 % 3:33 PM 0.00 in 78.562 kg (173.20 lbs) 28.8 2 kg/m eter (2) 67 /min 140/74 mm[Hg] 97.90 F 8:17 AM 176/81 mm[Hg] 7:31 AM 0.00 in 76.657 kg (169.00 lbs) 28.1 2 kg/m eter (2) 51 /min 172/81 mm[Hg] 98.20 F 12 /min 1.88 meter(2) 6:24 PM 0.00 in 77.474 kg (170.80 lbs) 28.4 2 kg/m eter (2) 78 /min 164/77 mm[Hg] 98.60 F 16 /min 1.88 meter(2) 98 % 10:51 AM 0.00 in 80.240 kg (176.90 lbs) 29.4 4 kg/m eter (2) 73 /min 149/90 mm[Hg] 16 /min 1.92 meter(2) 96 % 21 % 7:48 AM 0.00 in 77.564 kg (171.00 lbs) 28.4 6 kg/m eter (2) 58 /min 156/80 mm[Hg] 97.20 F 16 /min 1.89 meter(2) 97 % 11:52 AM 0.00 in 78.608 kg (173.30 lbs) 28.8 4 kg/m eter (2) 65 /min 120/74 mm[Hg] 20 /min 1.90 meter(2) 92 % 21 % 11:30 AM 165.10 cm 80.694 kg (177.90 lbs) 29.6 0 kg/m eter (2) 53 /min 134/79 mm[Hg] 12 /min 1.92 meter(2) 98 % 21 % 9:40 AM 165.10 cm 53.070 kg (117.00 lbs) 19.4 7 kg/m eter (2) 86 /min 128/89 mm[Hg] 12 /min 1.56 meter(2) 93 % 21 % 3:27 PM 165.10 cm 80.830 kg (178.20 lbs) 29.6 5 kg/m eter (2) 67 /min 143/88 mm[Hg] 97.60 F 1.93 meter(2) 95 % 1:40 PM 165.10 cm 79.787 kg (175.90 lbs) 29.2 7 kg/m eter (2) 70 /min 135/73 mm[Hg] 97.60 F 15 /min 1.91 meter(2) 96 % 4:04 PM 165.10 cm 76 /min 122/78 mm[Hg] 18 /min 98 % 21 % 1:58 PM 165.10 cm 72 /min 129/60 mm[Hg] 18 /min 2:34 PM 165.10 cm 74 /min 132/60 mm[Hg] 19 /min 11:44 AM 165.10 cm 77.882 kg (171.70 lbs) 28.5 7 kg/m eter (2) 76 /min 174/81 mm[Hg] 98.60 F 17 /min 1.89 meter(2) 96 % 10:31 AM 165.10 cm 78.290 kg (172.60 lbs) 28.7 2 kg/m eter (2) 83 /min 128/79 mm[Hg] 98.50 F 17 /min 1.89 meter(2) 96 % 11:43 AM 165.10 cm 78.199 kg (172.40 lbs) 28.6 9 kg/m eter (2) 80 /min 125/73 mm[Hg] 97.30 F 15 /min 1.89 meter(2) 97 % 4:11 PM 165.10 cm 76.657 kg (169.00 lbs) 28.1 2 kg/m eter (2) 96 /min 132/84 mm[Hg] 98.00 F 15 /min 1.88 meter(2) 98 % 8:39 AM 165.10 cm 80.739 kg (178.00 lbs) 29.6 2 kg/m eter (2) 55 /min 141/76 mm[Hg] 96.50 F 1.92 meter(2) 11:23 AM 165.10 cm 79.379 kg (175.00 lbs) 29.1 2 kg/m eter (2) 79 /min 138/78 mm[Hg] 96.80 F 16 /min 1.91 meter(2) 96 % 12:57 PM 65.00 in 78.471 kg (173.00 lbs) 28.7 9 kg/m eter (2) 67 /min 139/82 mm[Hg] 97.70 F 17 /min 1.90 meter(2) 96 % 3:49 PM 65.00 in 64 /min 118/72 mm[Hg] 96.90 F 18 /min 96 % 2:43 PM 65.00 in 160.00 lbs 26.6 2 kg/m eter (2) 72 /min 118/72 mm[Hg] 97.90 F 18 /min 1.82 meter(2) 95 % 11:38 AM 65.00 in 162.20 lbs 26.9 9 kg/m eter (2) 68 /min 118/78 mm[Hg] 97.10 F 18 /min 1.84 meter(2) 98 % 2:46 PM 65.00 in 155.00 lbs 25.7 9 kg/m eter (2) 68 /min 122/70 mm[Hg] 16 /min 3:06 PM 65.00 in 151.00 lbs 25.1 2 kg/m eter (2) 76 /min 110/76 mm[Hg] 20 /min 2:29 PM 65.00 in 154.00 lbs 25.6 2 kg/m eter (2) 110/76 mm[Hg] 1.79 meter(2) 3:44 PM 65.00 in 154.00 lbs 25.6 2 kg/m eter (2) 1.79 meter(2) 2:59 PM 65.00 in 154.00 lbs 25.6 2 kg/m eter (2) 120/80 mm[Hg] 1.79 meter(2) 1:17 PM 65.00 in 71.577 kg (157.80 lbs) 26.2 6 kg/m eter (2) 118/82 mm[Hg] 1.81 meter(2) 3:54 PM 65.00 in 153.00 lbs 25.4 6 kg/m eter (2) 64 /min 132/80 mm[Hg] 16 /min 1.78 meter(2) 11:28 AM 65.00 in 153.50 lbs 25.5 4 kg/m eter (2) 80 /min 102/68 mm[Hg] 97.40 F 14 /min 97 % 1:08 PM 65.00 in 69.626 kg (153.50 lbs) 25.5 4 kg/m eter (2) 118/80 mm[Hg] 1.79 meter(2) 12:03 PM 65.00 in 153.00 lbs 25.4 6 kg/m eter (2) 61 /min 102/64 mm[Hg] 96.60 F 14 /min 96 % 3:38 PM 65.00 in 69.264 kg (152.70 lbs) 25.4 1 kg/m eter (2) 124/86 mm[Hg] 1.78 meter(2) 3:13 PM 65.00 in 152.10 lbs 25.3 1 kg/m eter (2) 73 /min 110/78 mm[Hg] 97.30 F 12 /min 98 % 11:38 AM 65.00 in 156.90 lbs 26.1 1 kg/m eter (2) 80 /min 118/64 mm[Hg] 97.40 F 12:29 PM 65.00 in 164.30 lbs 27.3 4 kg/m eter (2) 74 /min 112/72 mm[Hg] 97.00 F 14 /min 9:37 AM 65.00 in 167.10 lbs 27.8 0 kg/m eter (2) 68 /min 124/82 mm[Hg] 96.90 F 14 /min 99 % 11:14 AM 65.00 in 168.30 lbs 28.0 0 kg/m eter (2) 78 /min 124/80 mm[Hg] 96.80 F 12 /min 11:37 AM 65.00 in 174.00 lbs 28.9 5 kg/m eter (2) 88 /min 144/78 mm[Hg] 97.60 F 16 /min 1.90 meter(2) 11:43 AM 65.00 in 172.10 lbs 28.6 4 kg/m eter (2) 54 /min 94/50 mm[Hg] 1.89 meter(2) 98 % 11:00 AM 65.00 in 171.10 lbs 28.4 7 kg/m eter (2) 78 /min 112/68 mm[Hg] 1.88 meter(2) 94 % 10:59 AM 65.00 in 168.90 lbs 28.1 0 kg/m eter (2) 65 /min 120/88 mm[Hg] 1.87 meter(2) 97 % 2:16 PM 65.00 in 77.111 kg (170.00 lbs) 28.2 9 kg/m eter (2) 70 /min 98.60 F 1.88 meter(2) 96 % Chief Complaint And Reason For Visit Most recent encounter only, dated '02/16/2025 09:30'. pre op visit (chief complaint). Description: Patient is here for a pre op visit. She is scheduled for a left total hip arthroplasty on 03/01. X-ray AP pelvis lat R hip-OA end stage. Reason For Referral Reason For Referral MeaningFull Use Plan Of Treatment Date Type Action Status Appointment Emily Mccoy BOOKED Appointment Emily Mccoy BOOKED Unknown Immunization Zoster vaccine ordered Unknown Immunization Prevnar 13 ordered History Of Present Illness Encounter Date Complaint History Of Prese nt Illness pre op visit Patient is here for a pre op visit. She is scheduled for a left total hip arthroplasty on 03/01. X-ray AP pelvis lat R hip-OA end stage. chronic conditions Additional in formation: 4 mo follow up. Home blood pressure range is 126 systolic and 88 diastolic. Comments: The pa santy is a 74-year-old female who presents to the clinic today for a 4-month follow-up. Patient has a history of osteoarthritis of the left hip and is planned for left hip replacement surgery. She has been cleared by Dr. Almendarez. The surgery is scheduled for February. Patient reports intermittent warmth in her right calf and noted a swelling in the right leg yesterday and is concerned about blood clot. Her hypertension and hyperlipidemia are stable on medication. Patient has vertigo, dizzy, balance issues, which are stable and she attributes the symptoms to her lower extremity weakness. Labs ordered by us in August 2024, results were normal. preoperative cardiac assessment This 74-year-old lady with a noted history of significant arthritis presents for preoperative cardiac assessment prior to left hip replacement. Today she denies any chest pain or shortness of breath. Her past medical history includes COVID infection several years ago with subsequent pulmonary embolism taking anticoagulants for six months. Three years ago she underwent testing with Dr. Dorman with a normal echo and non-ischemic nuclear scan. Her history also includes breast cancer, status post mastectomy, hypertension, and hyperlipidemia. No CAD. She is without children. She is a nondrinker and nonsmoker. Allergies to atorvastatin. Review of systems constitutionally negative for fevers, chills, or weight loss. Cardiac and respiratory as noted. GI/ and hematological negative. Musculoskeletal and oncological as noted above.Cardiology Procedures:- 12/08/24 EKG ([facility] - Dr. Almendarez): Sinus rhythm; Abnormal R-wave progression; Borderline T wave abnormalities.- 10/21/[address] w/o CONTRAST: Lung nodule 3 mm solid noted LT lower lobe. No significant coronary artery calcifications seen. Large hiatal hernia noted. Otherwise, unremarkable.- 09/18/22 ECHO: Sinus rhythm. LVEF 55%, normal RVF. Biatrial enlargement. Mild aortic root enlargement. Concentric LVH. Valves appear to be structurally normal. Mild tricuspid regurgitation. Trace aortic insufficiency. No pericardial effusion masses or vegetations. [facility] follow up patient states went to ER at [facility] on 10/12/24 for vertigo. patient requesting referral to plasma specialist and neurologist. Medicare preventive The patient has not felt depressed and has had interest and pleasure doing things recently. Functional Status: (Functional status has not changed) on 09/15/2024. Cognitive Status: (Cognitive status has not changed) on 09/15/2024. The patient is not at risk for falls. The patient has not fallen in the last year. The fall(s) did not result in injury. Patient exercises daily. The patient has smoke detectors, carbon monoxide detectors in the home. The patient does not have firearms in the home. Patient reports using a seatbelt in vehicles. Relevant history is negative for passive vaping exposure, passive smoke exposure and alcohol use. hip Emily Mccoy is a 74 year old female. Pt is here in office today for Lt hip osteoarthritis. Pt reports pain 3/10. Aggravated by sitting for long periods. Relieved by Aleve dual action. Hx of DVTAP pelvis/Lt hip 03/03/2024 - endstage osteoarthritis Full body exam Growth on left n howard that is dark Mall Event Flu Vaccine chronic conditions Home blood pr essure range is 126 systolic and 88 diastolic. lesion(s) Area(s) of salvador rn include the on eyebrow and on right cheeck. Risk factors do not include family history of skin cancer, greater than 5 sunburns or immunosuppression. Additional information: Patient is here for a bump on eyebrow and a bump on the right cheek. Patient also has a growth on head. hip Emily Mccoy is a 73 year old female. Pt is here in office today for Lt hip osteoarthritis. Pt reports no pain. Lt hip x-ray 03/03/2024 - Lt hip osteoarthritis, endstage lorena Mccoy is a 73 year old female. Pt is here in office today for Lt knee follow up. Last steroid injection was 08/2023. Pt reports pain 6/10. Aggravated by walking a lot. Relieved by Aleve double action. Lt knee x-ray 02/18/2024 - moderate medial joint narrowing hypertension Additional infor mation: 4mo fu lorena Mccoy is a 73 year old female. Pt is here in office today for Lt knee steroid injection. Pt reports no pain. Lt knee x-ray 05/17/2022 - Lt knee osteoarthritis moderate/severe Medicare preventive The patient has not felt depressed and has had interest and pleasure doing things recently. Functional status assessed on 09/19/2021. Cognitive status assessed on 09/19/2021. The patient has not fallen in the last year. The fall(s) did not result in injury. Patient exercises daily. The patient has smoke detectors, carbon monoxide detectors in the home. The patient does not have firearms in the home. Patient reports using a seatbelt in vehicles. Relevant history is negative for passive vaping exposure and alcohol use. knee Emily Mccoy is a 73 year old female. Pt is here in office today for Lt knee pain last seen by Dr. Dasilva on 09/30/2022 for medial meniscus tear. Pt reports pain 04/16. Aggravated by getting out of car and getting up from sitting position. x-ray 05/17/2022 - weight bearing 3v moderate medial joint narrowing leg pain Onset: 1 year ag o. Severity level is moderate-severe. It occurs intermittently and is worsening. Location: left. The pain radiates to the left thigh. The pain is aching and burning. Context: there is no injury. The pain is aggravated by movement. There are no relieving factors. Hand Dominance: right. Flu Vaccine Patient present for flu vaccine administration. chronic conditions Additional in formation: 4mo fu. Home blood pressure range is 126 systolic and 88 diastolic. follow up of mild ao rtic root dilation follow up of mild ao rtic root dilation Patient returns for follow-up. This 73-year-old lady has a history of pulmonary embolism secondary to COVID-19 infection in 2021. She has been followed by Dr. Banks. She also has a history of hypertension, dyslipidemia, basal cell carcinoma of the skin of scalp and neck, and bilateral mastectomy. 09/18/22 echocardiogram noted normal ejection fraction of 55% with normal RV systolic function. There is very mild noted aortic root enlargement at 4.1 cm. The valves appear structurally normal. There is mild tricuspid regurgitation and trace aortic insufficiency without pericardial effusions or vegetation. At this stage, she denies any chest pain or shortness of breath. She is completely asymptomatic. We will obtain a follow-up CT scan of her thoracic aorta next year just to be sure there is no dilatation of the aortic root.- 10/21/[address] w/o CONTRAST: Lung nodule 3 mm solid noted LT lower lobe. No significant coronary artery calcifications seen. Large hiatal hernia noted. Otherwise, unremarkable.- 09/18/22 ECHO: Sinus rhythm. LVEF 55%, normal RVF. Biatrial enlargement. Mild aortic root enlargement. Concentric LVH. Valves appear to be structurally normal. Mild tricuspid regurgitation. Trace aortic insufficiency. No pericardial effusion masses or vegetations. chronic conditions Home blood pr essure range is 126 systolic and 88 diastolic. Follow up Patient is here for a follow-up. She denies any respiratory complaints. She is a non-smoker Follow Up of Abnormal Pulmonary Study Study was performed 10/21/2022. Type of study: CT chest. Abnormality: pulmonary nodule. Follow Up of pulmonary embolism The symptoms are reported as being mild. The symptoms occur randomly. Patient is here for 1 year follow up. Patient states feels well. injury The injury occur red 1 hour ago. Symptoms related to the injury remain unchanged. A trauma occurred (smashed) at home approximately 1 hour ago. approximately 1 hour ago. The injury was not work related. Date of last tetanus: 11/30/2019. Mechanism of injury details: Patient got right middle finger and index finger smashed with her garage door. The patient has pain in the right index finger which is described as throbbing. The patient denies any aggravating factors. Interventions the Patient has tried have not provided any relief. The patient denies any associated symptoms. carotid and echo results Patient returns for follow-up. She has a history of pulmonary embolism, hypertension and dyslipidemia. Her echocardiogram and carotid doppler were normal. She is asymptomatic and has been doing well. knee Emily Mccoy is a 72 year old female. Pt is here in office today for Lt knee follow up. Pt reports no pain today. Pt is doing her own physical therapy exercises. Pt has no other complaints today. Medicare preventive The patient has not felt depressed and has had interest and pleasure doing things recently. Functional status assessed on 09/19/2021. Cognitive status assessed on 09/19/2021. The patient has not fallen in the last year. The fall(s) did not result in injury. Patient exercises daily. The patient has smoke detectors, carbon monoxide detectors in the home. The patient does not have firearms in the home. Patient reports using a seatbelt in vehicles. Relevant history is negative for passive vaping exposure, passive smoke exposure and alcohol use. follow up on hypertension Kita edouard returns for follow up. She complains of burning in her neck. Her stress in November 2021 was normal. Echo in September was normal. She has a history of pulmonary embolism status post COVID. She is off of anticoagulation. knee Emily Mccoy is a 72 year old female. Pt is here in office today for MRI of Lt knee. Pt states has minimal pain. Pt has been having pain since February 2022. Pt had 12 sessions of physical therapy and felt well but shortly after completing physical therapy she was walking at mall when she felt a loud pop and severe pain making it difficult for her to walk. Pain has inproved with in a few days and feels better but remains with some pain and is able to walk. Pt using a brace. follow up test results FLU SHOT follow up urgent care Left leg pain Onset: 3 months ago. Severity level is 7. Location: left knee. The pain radiates to the Left leg. The pain is aching. The pain is aggravated by movement and walking. The pain is relieved by massage and physical therapy. Associated symptoms include swelling. Pertinent negatives include bruising, numbness and tingling in the legs. Hand Dominance: right. 4 month follow up posterior left knee pain Emily perez is a 72 year old female patient who was referred to PT due to posterior left knee pain. Emily states that the symptoms began several months ago with no apparent trauma or injury and pain has been progressively getting worse. Patient states that it could be from her sitting a lot. The symptoms occur constantly with intermittent worsening. Currently the patient states that the symptoms are mild-moderate. The pain is described as sharp. She rates her worst pain as 8/10. She rates her current pain as 1/10. The symptoms are aggravated by prolonged sitting, getting up from bed in the morning and sitting to standing. Emily states that the symptoms are relieved by cold pack. knee pain Onset: gradual. It occurs constantly and is improving. Location: left knee and back of knee. The pain is aching. The pain is aggravated by standing. There are no relieving factors. Associated symptoms include decreased mobility. Hand Dominance: right. Additional information: would like physical therapy. Follow Up of hypertension note for dentist questions about blood thinner leg pain Onset: 2 to 3 we eks ago. Severity level is mild-moderate. It occurs intermittently and is fluctuating. Location: bilateral leg. The pain is aching. Context: there is no injury. Hand Dominance: right. Cough Onset: 2 years a go. Severity: mild-moderate. The patient describes the cough as dry. It occurs nocturnally only. The problem has not changed. stress test results Patient retu rns for follow up. This 71-year-old female has a history of pulmonary embolism and recurrent jaw pain that is not exertional, according to her. The patient states it is more of a random type situation, possibly related to TMJ or muscle spasms in the head and neck area. Recent stress test was normal. Pulmonary embolism The symptoms are reported as being mild. The symptoms occur randomly. Associated symptoms include occasional need to take deep breath. Patient is here for Chest CT follow up. Has continued to take eliquisShe does occasionally have pleuritic chest pain Consult Patient presents for evaluation per Dr. Duggan. This 71-year-old female was hospitalized in August 2021 for a pulmonary embolism (PE). She was seen by Dr. Caldera who requested an angiographic evaluation. The patient declined opting for a second opinion. She felt a severe episode of chest pain which was found to be secondary to PE. She has been on anticoagulation without any recurrent symptoms except for jaw pain of non-delineated etiology. hypertriglycerdemia follow up on labs Back pain Onset: 3 weeks a go. Severity level is moderate-severe. Location of pain is lower back. Hospital follow up PE Post covid -19 07/2021, improved symptoms of chest discomfort Follow up She is here for hospital follow-up. She was diagnosed with a pulmonary embolism as well as a new pulmonary nodule. She is on room air. She is on Eliquis. She does have a history of breast cancer. She is followed by Dr. Frank. She is currently in remission. She was diagnosed in 2019. She is a non-smoker. She denies any respiratory complaints Abnormal Pulmonary Study Study w as performed 08/31/2021. Type of study: CT chest. Medicare preventive The patient has not felt depressed and has had interest and pleasure doing things recently. Functional Status: (Functional status has not changed) on 09/19/2021. Cognitive Status: (Cognitive status has not changed) on 09/19/2021. The patient has not fallen in the last year. The fall(s) did not result in injury. Patient exercises daily. The patient has smoke detectors in the home. The patient does not have firearms, carbon monoxide detectors in the home. Patient reports using a seatbelt in vehicles. Relevant history is negative for passive smoke exposure and alcohol use. hosp fu hosp fu admit disch [id number] dx: pulmonary embolism right lower lobe. rapid covid test Quick Tano SARS Rapid covid test Covid Swab Rapid Covid Swab performed today. flu shot flu shot only medicare preventive The patient has not felt depressed and has had interest and pleasure doing things recently. Functional Status: (Functional status has not changed) on 05/06/2021. Cognitive Status: (Cognitive status has not changed) on 05/06/2021. The ''Up and Go'' test took less than 30 seconds and the patient does not need help with activities of daily living. The patient is not at risk for falls. The patient has not fallen in the last year. The fall(s) did not result in injury. Patient exercises daily. Relevant history is negative for passive smoke exposure and alcohol use. chronic conditions Home blood pr essure range is 126 systolic and 88 diastolic. chronic conditions Home blood pr essure range is 126 systolic and 88 diastolic. chronic conditions Pertinent neg atives include fatigue, pain, weight gain and weight loss. Additional information: Pt presents for F/U on chronic conditions.. Home blood pressure range is 126 systolic and 88 diastolic. chronic conditions Associated sy mptoms include fatigue and pain scale . Pertinent negatives include weight gain and weight loss. Additional information: Pt presents for F/U on chronic conditions.. Home blood pressure range is 126 systolic and 88 diastolic. ear lavage The symptoms beg an 1 month ago and generally lasts 1 Month. The symptoms are reported as being moderate. The symptoms occur constantly. The location is B ear lavage. The context of the symptoms include B ear lavage. The symptoms are described as moderate. She states the symptoms are acute and are unchanged. Pt presents for F/U for ear lavage. Pt states she has been using her Debrox. chronic conditions Associated sy mptoms include pain scale . Pertinent negatives include fatigue, weight gain and weight loss. Additional information: Pt presents for F/U on chronic conditions.. Home blood pressure range is 126 systolic and 88 diastolic. Post Op The symptoms are reported as being moderate. The symptoms occur daily. The location is Bilateral. She states the symptoms are acute. Patient is here for a bilateral mastectomy post op appointment. Procedure done on 11/30/2019, patient states she had an appointment with Oncology on 10/27/19 Post OP The symptoms are reported as being moderate. Patient is here for a post op of a bilateral mastectomy on 11/30/2019. Doing well no complications. hosp fu The symptoms beg an 7 days ago and generally lasts 2 Days. The symptoms are reported as being moderate. The symptoms occur constantly. The location is F/U appt., S/P hospitalization for B mastectomy. The context of the symptoms include F/U appt., S/P hospitalization for B mastectomy. The symptoms are described as moderate-severe. She states the symptoms are acute and are unchanged. Pt presents 6 days S/P B mastectomy. Pt is doing moderately well, but is frustrated with her bandaging and drains. lesion(s) The patient pres ents with lesion(s) that began gradually. The problem is mild, has not changed and occurs continuously. Area(s) of concern include the scalp. The patient has not been previously treated. The patient reports a prior history of skin cancer (basal cell carcinoma). Risk factors do not include family history of skin cancer, greater than 5 sunburns or immunosuppression. The patient denies aggravating factors. Associated symptoms include pruritus and scaly skin. The patient reports no erythema or painful lesions. Breast cancer Pertinent negati ves include abdominal pain, chills, fever, nausea, rash and vomiting. Additional information includes Patient is here for consult regarding invasive lobular carcinoma of the left breast biopsy 10/06/2019. not seen Mrs. Mccoy was r escheduled to 11/16/[address] Altman being unavailable to see patients HX: Left Breast Cancer 6 month follow up The patient is here for a 6 month follow up for heartburn. The patient has complaints of occasional heartburn. 6 month follow up (comments) 69- year-old woman is here for follow-up of heartburn. Patient said that she will get heartburn when she eats spicy food. Patient denies any abdominal pain, nausea, vomiting, melena, blood in the stool, loss of appetite and weight loss.Patient is taking Protonix 40 mg daily. lesion(s) The patient pres ents with lesion(s) that began gradually. The problem is moderate, has not changed and occurs continuously. The patient has not been previously treated. The patient reports a prior history of skin cancer (basal cell carcinoma). Risk factors do not include family history of skin cancer. The patient denies aggravating factors. Associated symptoms include pruritus and scaly skin. The patient reports no erythema, non-healing sores or painful lesions. chronic conditions Pertinent neg atives include fatigue, pain, weight gain and weight loss. Additional information: Pt presents for F/U on chronic conditions.. Home blood pressure range is 126 systolic and 88 diastolic. Cough Onset: 6 Days. The severity of the problem is moderate. The problem has not changed. The symptoms are persistent. Associated symptoms include cough (dry). Pertinent negatives include nasal congestion or wheezing. flu vac follow up visit The patient is h ere for a follow up visit for an EGD with biopsy test results for heartburn. The patient has complaints of abdominal cramping but states the heartburn is improving. follow up visit (comments) 68-ye ar-old woman is here for follow-up EGD. Patient EGD done for heartburn and dysphasia. Patient said that her heartburn has improved with Protonix 40 mg twice daily. Her dysphagia has improved since the dilation.She denies any abdominal pain, nausea, vomiting, melena, blood in the stool. Follow up on lab test(s) The sym ptoms began 1 month ago and generally lasts 1 Month. The symptoms are reported as being n/a. The symptoms occur n/a. The location is lab results. The context of the symptoms include lab results. The symptoms are described as n/a. She states the symptoms are acute and are unchanged. Pt presents for F/U on lab results. chronic conditions Pertinent neg atives include fatigue, pain, weight gain and weight loss. Additional information: Pt presents for F/U on chronic conditions.. Home blood pressure range is 126 systolic and 88 diastolic. Consultation (comments) 68-year- old woman is here for colon cancer screening.Patient said that she has heartburn all the time since she been off the omeprazole. She tried Tums but they do not help. She complain of occasional dysphasia.She denies any melena and blood in the stool.She had a colonoscopy her on 08/15/2013 that showed internal hemorrhoids and diverticulosis. Consultation The patient is h ere for a consultation for a Colonoscopy and heartburn. The patient has complaints of heartburn and acid reflux. sore throat Onset: 5 Days. The severity of the problem is moderate. The problem has not changed. The symptoms are persistent. Symptoms are not associated with dental infection, exposure to strep, history of allergies, history of asthma, recent cold, recent travel, sick family member and smoker. The patient denies aggravating factors. The patient denies relieving factors. Associated symptoms include cough (dry) and otalgia. Pertinent negatives include chills/rigors, fatigue, fever or nasal congestion. ear pain Onset: 1 day ago . Duration: 1 Day. The patient states the ear pain is in both ears. It occurs constantly. The problem is worse. Denies aggravating factors. Denies relieving factors. Associated symptoms include cough. Pertinent negatives include bleeding from ear(s), congestion (nasal), dizziness, drainage (clear), drainage (purulent), ear popping, ear pressure, fever, nausea and vomiting. medicare preventive The patient has not felt depressed and has had interest and pleasure doing things recently. Patient exercises daily. Patient denies recent weight gain. Patient denies recent weight loss. Relevant history is negative for passive smoke exposure, alcohol use. annual exam Negative for dys menorrhea and menorrhagia. Negative for: breast discharge, breast lump(s) and breast pain. Positive for: breast self exam.Postmenopausal. Menopausal symptoms negative for: hot flashes and insomnia. Pertinent negatives include abnormal bleeding (hematology), abnormal vaginal bleeding, anxiety, depression, difficulty falling sleep, dyspareunia, nocturia, sexual dysfunction, sleep disturbances, urinary incontinence, urinary urgency, vaginal discharge and vaginal itching. She does not take calcium. She does take multivitamins occasionally.The patient states her exercise frequency is daily. She has not been exposed to passive smoke. She does not drink alcohol. Atrophic Vaginitis The symptoms are reported as being moderate. chronic conditions Pertinent neg atives include fatigue, pain, weight gain and weight loss. Home blood pressure range is 126 systolic and 88 diastolic. Follow up on lab test(s) The sym ptoms began 1 month ago and generally lasts 1 Month. The symptoms are reported as being n/a. The symptoms occur n/a. The location is lab results. The context of the symptoms include lab results. The symptoms are described as n/a. She states the symptoms are acute and are unchanged. Pt presents for F/U on lab results. Left calf pain Onset: 2 weeks a go. Duration: 2 Weeks. Severity level is 4. It occurs intermittently and is worsening. Location: left. There is no radiation. Context: there is no injury. There are no relieving factors. Associated symptoms include weakness. Hand Dominance: right. lesion(s) The patient pres ents with lesion(s) that began gradually. The problem is mild, has not changed and occurs continuously. Area(s) of concern include the right malar. The lesion(s) have been previously treated with cryosurgery. The patient reports no prior history of skin cancer. Risk factors do not include family history of skin cancer, greater than 5 sunburns or immunosuppression. The patient denies aggravating factors. The patient does not report any relieving factors. The patient reports no erythema, pruritus, lesion discharge, painful lesions or scaly skin. lesion(s) The patient pres ents with lesion(s) that began gradually. The problem is improving and occurs continuously. Area(s) of concern include the right malar. The lesion(s) have been previously treated with cryosurgery. The patient reports no prior history of skin cancer. Patient denies aggravating factors. The patient reports no erythema, pruritus, lesion discharge, painful lesions or scaly skin. history of actinic keratosis The patient presents with history of actinic keratosis that began gradually. The problem is improving and occurs continuously. Area(s) of concern include the right cheek. The lesion(s) have been previously treated with cryosurgery. The patient reports no prior history of skin cancer. Patient denies aggravating factors. The patient reports no erythema, pruritus, lesion discharge, painful lesions or scaly skin. flu shot history of actinic keratosis The patient presents with history of actinic keratosis that began gradually. The problem is improving and occurs continuously. Area(s) of concern include the right cheek and right malar. The lesion(s) have been previously treated with cryosurgery. The patient reports no prior history of skin cancer. The patient reports no pruritus, lesion discharge, painful lesions or scaly skin. lesion(s) The patient pres ents with lesion(s) that began gradually. The problem is mild, worsened and occurs continuously. Area(s) of concern include the right flank. The lesion(s) have been previously treated with excision. The patient reports a prior history of skin cancer (basal cell carcinoma). Risk factors do not include family history of skin cancer, greater than 5 sunburns or immunosuppression. Associated symptoms include scaly skin. The patient reports no fatigue, pruritus, painful lesions or recurrent bleeding lesions. Additional information: excision biopsy done by Dr. Mai, patient states that it looks like it is growing back. lesion(s) The patient pres ents with lesion(s) that began gradually.The Problem has not changed. The lesion occurs continuously. Area(s) of concern include the right cheek. The lesion(s) of concern is described as red color and growing. The patient has not been previously treated. The patient reports a prior history of skin cancer (basal cell carcinoma). Risk factors include family history of skin cancer (basal cell carcinoma). Associated symptoms include scaly skin. The reports no fatigue, pruritus, painful lesions or recurrent bleeding lesions. Additional information: States has had for the past 1 year and has not grown in size. injury This is an initi al visit. The injury occurred on 03/31/2017. Symptoms related to the injury have worsened. A trauma occurred (DOG BITE) [employer] on 03/31/2017. The injury was not work related. Mechanism of injury details: DOG BITE ON 03/31/17 WAS HEALING BUT HAS BEGUN TO DEVELOPE A RASH THAT SHE IS UNSURE IF IT IS FOR THE TOPICAL OR THE DOG BITE. The patient denies any de la cruz, foreign objects or pain. Annual Exam Follow up on lab test(s) GFR 76l ipid 96/144/81/55vit d 44.36TSH 3.32 hyperlipidemia Risk factors inc lude age over 50. Pertinent negatives include chest pain, constant hunger, constipation, diarrhea, dizziness, excessive thirst, frequent infections, heartburn, hematuria, myalgia, nausea, nocturia, vomiting, weight gain and weight loss. ck big toes ear pain Onset: 1 day ago . Severity level is 4. Duration: 1 Day. The patient states the ear pain is in the right ear. It occurs constantly. The problem is with no change. Additional information: Patient had impacted cerumen and started using Debrox 2 days ago. Throbbing pain in R side started today. lesion(s) The patient pres ents with lesion(s) that began gradually. The problem is mild, improved and occurs continuously. Area(s) of concern include the dorsum of right hand. The lesion(s) have been previously treated with cryosurgery. The patient reports a prior history of skin cancer (basal cell carcinoma). Risk factors include family history of skin cancer (basal cell carcinoma). The patient reports no pruritus, painful lesions, recurrent bleeding lesions or scaly skin. Additional information: states that the lesion is all gone since second round of cryo. meds refill hyperlipidemia Risk factors inc lude age over 50. Pertinent negatives include chest pain, diarrhea, dizziness, dyspnea, heartburn, hematuria, joint pain, myalgia, nausea, nocturia, palpitations, rash, slow healing, vision loss, vomiting, weight gain and weight loss. lesion(s) The patient pres ents with lesion(s) that began gradually. The problem is mild, has not changed and occurs continuously. Area(s) of concern include the dorsum of right hand. The lesion(s) have been previously treated with cryosurgery. The patient reports no prior history of skin cancer. Risk factors include family history of skin cancer (basal cell carcinoma). The patient reports no pruritus, painful lesions or scaly skin. lesion(s) The patient pres ents with lesion(s) that began gradually. The problem is mild, worsened and occurs continuously. Area(s) of concern include the dorsum of right hand. The lesion(s) of concern is described as flesh colored color and growing. The patient has not been previously treated. The patient reports a prior history of skin cancer (basal cell carcinoma). Risk factors include family history of skin cancer (basal cell carcinoma). Associated symptoms include scaly skin. lesion(s) The patient pres ents with lesion(s) that began gradually. The problem is mild, has not changed and occurs continuously. Area(s) of concern include the neck and right side of neck. The lesion(s) of concern is described as brown color. The patient has not been previously treated. The patient reports a prior history of skin cancer (basal cell carcinoma). Risk factors do not include family history of skin cancer, greater than 5 sunburns or immunosuppression. lesion(s) The patient pres ents with lesion(s) that began gradually. The problem is mild, has not changed and occurs continuously. Area(s) of concern include the dorsum of right hand. The patient has not been previously treated. The patient reports a prior history of skin cancer (basal cell carcinoma). lesion(s) The patient pres ents with lesion(s) that began gradually. The problem is mild, improved and occurs continuously. Area(s) of concern include the face and left lateral canthus. The lesion(s) have been previously treated with excision. The patient reports a prior history of skin cancer (basal cell carcinoma). Risk factors include family history of skin cancer (basal cell carcinoma). Additional information: followup to make sure that the lesion has not grown back. left hip pain Emily Mccoy is a 66 year old female patient who was referred to PT due to left femur/ thigh pain. She presents with pain on the left side. Emily states that the symptoms began about 6 1/2 weeks ago with no apparent trauma or injury. The symptoms occur intermittently. Currently the patient states that the symptoms are mild-moderate. The pain is described as sharp. The patient indicates that the pain is located in the thigh on the left side. She rates her worst pain as 8/10. She rates her current pain as 5/10. The symptoms are aggravated by standing and sit to stand. hyperlipidemia Risk factors inc lude age over 50. left leg pain Onset: 6 weeks a go. Location: left. Additional information: she got x ray femur and would like to know the result. left leg pain Onset: 1 month a go. It occurs constantly and is fluctuating. Location: left. The pain radiates to the left thigh. Context: there is an injury. The pain is aggravated by movement, walking and standing. The pain is relieved by OTC medicines (acetaminophen). There are no associated symptoms. There are no pertinent negatives. Hand Dominance: right. lesion(s) The patient pres ents with lesion(s) that began 5 weeks ago. The problem is mild, resolved and occurs continuously. Area(s) of concern include the right forehead and right upper abdomen. The lesion(s) have been previously treated with excision. The patient reports a prior history of skin cancer (basal cell carcinoma). Risk factors include family history of skin cancer (basal cell carcinoma). Additional information: Per Patiet is being referred by Dr. Ana Maria Veliz for a check up on the shave Bx she had done March. Pathology report is available. lesion(s) The problem is m ild, has not changed and occurs continuously. Area(s) of concern include the forehead and rt abdomen. The patient reports a prior history of skin cancer (basal cell carcinoma). Risk factors include family history of skin cancer (basal cell carcinoma). lesion(s) The patient pres ents with lesion(s) that began 12 days ago. The problem is mild, has not changed and occurs continuously. Area(s) of concern include the right forehead, right frontal scalp, right suprapubic area and right lower abdomen. The lesion(s) of concern is described as black color, growing and having irregular edges. The patient has not been previously treated. The patient reports a prior history of skin cancer (basal cell carcinoma). Risk factors do not include family history of skin cancer, greater than 5 sunburns or immunosuppression. Aggravating factors include scratching, sun exposure and trauma. Associated symptoms include change in color of mole(s), change in size and shape of the mole(s), itchy skin, pigment change, scaly skin and skin irritation. The patient reports no blistering, erythema, fatigue or lymphadenopathy. lesion(s) The patient pres ents with lesion(s) that began gradually. The problem is mild, improved and occurs continuously. Area(s) of concern include the head. The lesion(s) of concern is described as brown color, growing, having irregular edges and spreading. The patient has not been previously treated. The patient reports a prior history of skin cancer (basal cell carcinoma). Risk factors include family history of skin cancer (basal cell carcinoma). Aggravating factors include clothing, scratching and trauma. Associated symptoms include change in color of mole(s), change in size and shape of the mole(s) and pigment change. The patient reports no blistering, erythema, fatigue, lymphadenopathy or scaly skin. Rectal bleeding Onset: gradual. Severity level is moderate. Duration 2 Weeks. Pertinent negatives include abdominal pain, constipation, decreased appetite, diarrhea, heartburn, rectal pain and rectal pain associated with bleeding. Additional information: pt has hx of hemorrids on last colonscopy showed postive for hemorrids. Well womens exam pt is here for a pap smear test . Skin Lesion/ Rash The symptoms b herb 4 months ago. The symptoms are reported as being mild. The symptoms occur daily. Aggravating factors include n/a. Relieving factors include n/a. pt has mole on forehead and she has noticed a change in color and pattern in the last weeks. Musculoskeletal pain Onset: 3 we eks ago. It occurs constantly and is stable. Location: bilateral upper arm. There is no radiation. The pain is aching and burning. The pain is aggravated by movement. There are no relieving factors. There are no associated symptoms. Additional information: pt states that she was lifting something heavey at home about 3 wks ago. sore throat Onset: 2 Days. The severity of the problem is mild. Pain scale: 4/10. The problem is improving. The symptoms are persistent. Associated symptoms include otalgia. Pertinent negatives include fatigue or fever. ear pain Onset: 2 days ag o. Severity level is mild-moderate. Duration: 2 Days. The patient states the earache is in the left ear. It occurs constantly. The problem is improving. Pertinent negatives include fever. encounter for flu vaccine The sy mptoms are reported as being . The symptoms occur . The location is n/a. Aggravating factors include n/a. Relieving factors include n/a. need for flu vaccine and pneumococcal 13 follow up on mammogram from 06/07 4 pt recieved letter from radiology stating that she has densed breast and that a ultrasound was recommend. flu vaccine flu vaccine need ed today Functional Status Date Functional Assessmen t Pain Score 0/10 Pain Score 3/10 Pain Score 0/10 Pain Score 6/10 Pain Score 0/10 Pain Score 8/10 Pain Score 0/10 Pain Score 1/10 Pain Score 3/10 Pain Score 0/10 Pain Score 0/10 Pain Score 0/10 Pain Score 0/10 Pain Score 0/10 Pain Score 0/10 Pain Score 0/10 Pain Score 4/10 Pain Score 0/10 Pain Score 0/10 Pain Score 0/10 Pain Score 0/10 Pain Score 3/10 Pain Score 0/10 Pain Score 0/10 Pain Score 0/10 Pain Score 0/10 Pain Score 0/10 Pain Score 0/10 Pain Score 2/10 Pain Score 4/10 Pain Score 0/10 Pain Score 0/10 Pain Score 0/10 Medications Administered Medication Instructions Dosage Effective Dates (start - stop) Status Comments Eliquis 5 mg tablet take 1 tablet by oral route 2 times every day - No Longer Active Instructions Date Instruction Additional Infor mation No Information Assessments Type Assessment Date assessment Body mass index (BMI) 29.0-29.9, adult impression PAP impression Patient is doing wel l. 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) (r outine) w/o abn findings assessment Primary osteoarthritis of left h ip impression Right lower extremity assessment Lower extremity edema assessment Primary osteoarthritis of left h ip assessment Chronic kidney disease, stage 3a assessment Essential (primary) hypertension assessment Benign paroxysmal positional palma tigo, bilateral assessment History of bilateral mastectomy assessment History of breast cancer 2024 assessment Arthritis assessment Allergy to atorvastatin Apr-04-2 025 assessment Dyslipidemia assessment Essential (primary) hypertension assessment Primary osteoarthritis of left h ip assessment Preoperative cardiovascular exam ination assessment Essential (primary) hypertension assessment Benign paroxysmal positional palma tigo, bilateral assessment Facet arthritis, degenerative, c ervical spine assessment Chronic kidney disease, stage 3a assessment Osteopenia after menopause assessment Primary osteoarthritis of left h ip assessment Dyslipidemia assessment Essential (primary) hypertension assessment Medicare annual wellness visit, subsequent assessment Thoracic aortic ectasia assessment Primary osteoarthritis of left h ip impression x2 on scalp status p ost Mohs surgeryNucleotide excision repair on scalp impression Reassure benign impression Right frontal scalp Differential diagnosis: basal cell carcinoma assessment History of basal cell carcinoma assessment Seborrheic keratosis assessment Neoplasm of uncertain behavior o f skin assessment Hx of basal cell carcinoma excis ion assessment Dyslipidemia assessment Essential (primary) hypertension impression On left vertex scalp . No evidence of recurrence. Patient is statues post Mohs 2 years ago. impression Patient had cryotherapy today to 1 lesion. impression Reassured patient, benign. 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 Primary osteoarthritis of left k nee assessment Osteopenia of left hip assessment Essential (primary) hypertension assessment Thoracic aortic ectasia 024 assessment Complex tear of medi al meniscus of left knee as current injury, subsequent encounter assessment Medicare annual wellness visit, subsequent assessment CKD (chronic kidney disease) sta ge 2, GFR 60-89 ml/min assessment Dyslipidemia assessment Essential (primary) hypertension assessment Complex tear of medi al meniscus of left knee as current injury, subsequent encounter assessment Inguinal muscle strain, initial encounter assessment Left leg numbness assessment Large hiatal hernia assessment Dyslipidemia assessment Essential (primary) hypertension assessment Hx pulmonary embolism assessment Large hiatal hernia assessment Lung nodule assessment Dyslipidemia assessment Essential (primary) hypertension assessment Aortic root dilatation assessment Essential (primary) hypertension assessment Left leg numbness assessment Acute pulmonary embo lism, unspecified pulmonary embolism type, unspecified whether acute cor pulmonale present assessment Pulmonary nodule impression Right middle and ind ex fingers with swelling and pain on ROM s/p crush injury today.-Xray of right hand done today in clinic- No fractures or dislocation noted assessment Hand pain, right assessment Dyslipidemia assessment Essential (primary) hypertension assessment Complex tear of medi al meniscus of left knee as current injury, subsequent encounter assessment Excessive cerumen in right ear c anal assessment Annual physical exam assessment Dyslipidemia assessment Essential (primary) hypertension assessment Personal history of pulmonary em bolism assessment Dyslipidemia assessment Essential (primary) hypertension assessment Neck pain impression MRI OF THE LEFT KNEE HISTORY: Left knee pain with some instability. The patient states pain feltmedially.COMPARISON: NoneTECHNIQUE: MRI of the left knee was performed without contrast.FINDINGS:BONE MARROW/OSSEOUS STRUCTURES: There is marrow edema of the medial femoralcondyle. There is edema of the superior tip of the patella.MENISCI AND JOINT SPACES: At the medial joint compartment, there is a complextear of the medial meniscus extending to the posterior horn. The tear reachesthe under surface and also there is a tear of the inferior coronary ligamentwith peripheral extrusion of meniscal tissue. Moderate edematous signal isseen in the soft tissues in this region as well. There is fissuring ofarticular cartilage. The tear reaches the posterior root where there is asomewhat deformed appearance of the posterior root. It extends forapproximately 8 mm to 9 mm.At the lateral joint compartment, no meniscal tears are seen. No chondraldefects are noted. No subchondral bony signal alteration is seen.At the patellofemoral joint compartment, no chondral defects are seen. Nosubchondral bony signal alteration is seen.The posterior [id number] surfaces of the medial and lateral femoralcondyles are unremarkable.LIGAMENTS AND TENDONS: There is edema of the anterior cruciate ligament andmedial collateral ligament compatible with sprain. No gross rupture orretraction is seen. The lateral collateral ligament and posterior cruciateligament are unremarkable. There is distention of the popliteal tendon sheath.OTHERS: Hoffa's fat pad is unremarkable. Small popliteal cyst is seenmeasuring 13 mm. Small joint effusion is noted. The neurovascular bundlesare outlined by fat. There is irregular contour of the medial margin of themedial patellar retinaculum that may represent sprain or partial tear withedema of the soft tissues deep to this region.Age of abnormalities is indeterminate/unknown. Correlation with clinicalscenario is necessary.IMPRESSION:1. Complex tear of the medial meniscus.2. Joint effusion.3. ACL and MCL sprain.4. Small popliteal cyst.5. Small joint effusion.6. Irregular contour of the medial margin of the medial patellar retinaculumthat may represent sprain or partial tear with edema of the soft tissues deepto this region.7. Distention of the popliteal tendon sheath.8. Marrow edema of the medial femoral condyle.9. Edema of the superior tip of the patella.DICTATED BY: LEONORA TREVIÑO MDDICTATED DATE/TIME: 06/11/22 1431SIGNED BY: LEONORA TREVIÑO MDSIGNED DATE/TIME: 06/11/22 1435 assessment Complex tear of medi al meniscus of left knee as current injury, subsequent encounter assessment Complex tear of medi al meniscus of left knee as current injury, subsequent encounter assessment Hyperkalemia assessment Body mass index [BMI] 28.0-28.9, adult May- assessment Posterior knee pain, left assessment Body mass index [BMI] 27.0-27.9, adult May- assessment Other chronic pain assessment Chronic pain of left knee impression Patient received the r ex and modalities per plan. Patient is independent with HEP. Focused on resistive exercises with good demo and tolerance by patient. Patient reports having very little discomfort with household activities. STM to left knee reveals small area of edema in left posterior lateral aspect of left knee, otherwise no tight or tender areas found. Cold pack with IFC to complete session. Patient has responded well to PT and Has met goals at this time. assessment Posterior knee pain, left impression Patient received the r ex and modalities per plan. Patient is tolerating increased resistance without increasing pain or soreness. Patient feels the increase in weightbearing on left leg with side stepping to right. Verbal cues to position left foot in neutral or slightly everted as patient tends to keep left foot inverted( pigeon toed). STM to left knee with no tight or tender areas found. Cold pack with IFC to complete session. assessment Posterior knee pain, left impression Patient received the r ex and modalities per plan. Increased resistance to 5# with SLR's and TKE's with good tolerance. Resisted gait increased to 40# without difficulty. STM to left knee with mild tightness along I T Band noted. Cold pack with IFC to complete session. assessment Posterior knee pain, left impression Patient received the r ex and modalities per plan. Patient instructed in resisted gait exercises for forward, backward and lateral gaits with 30 pounds of resistance . Bilateral leg press increased to 25# and single leg kept at 15#. Patient tolerated new exercise well. STM to left knee with minimal tightness or tenderness noted. Cold pack with IFC to complete session. assessment Posterior knee pain, left impression Pt recd Rx as per pl an, good jazmine noted. Pt worked on strengthening, stretching and ROM exercises for L kneePt recd STM followed by CP and e-stim. Pt demo'd no s/s of tension, tightness or TTP through joint line assessment Posterior knee pain, left impression Patient received the r ex and modalities per plan. Patient is tolerating 2# resistance with SLR's and TKE's very well. STM to left knee with very little tightness or tenderness noted. Cold pack with IFC to complete session. AROM is now 0-125. assessment Posterior knee pain, left assessment Body mass index [BMI] 28.0-28.9, adult assessment Basal cell carcinoma (BCC) of sc alp assessment Posterior knee pain, left assessment Essential (primary) hypertension assessment Dyslipidemia impression Patient received the r ex and modalities per plan. Patient tolerated [place] leg press and knee flexion/extension machines well. Added 2# to TKE's and SLR's with good demo of exercises. STM to left knee with minimal posterior knee tightness noted today. Cold pack with IFC to complete session. assessment Posterior knee pain, left impression Patient received the r ex and modalities per plan. Leg press and knee extension/flexion on [place] machines deferred secondary to increased pain today. STM to left knee with no tight or tender areas found. Cold pack with IFC to complete session. assessment Posterior knee pain, left impression Patient received the r ex and modalities per plan. Patient tolerating single knee to chest stretch fairly well with improved range of motion noted already. Patient is still 10-20 degrees behind right knee flexion. STM to left knee including manual stretching. Cold pack with IFC to complete session. assessment Posterior knee pain, left impression Patient received the r ex and modalities per plan. Patient instructed in knee flexion and extension exercises on [place] machine. Patient instructed in leg press for bilateral and single leg. Also added clams and single knee to chest stretch with fait tolerance. Patient's left hip demo's limited range of motion in flexion and rotation. STM to left knee and IT band f/b Cold pack with IFC to complete session. assessment Posterior knee pain, left impression Patient received the r ex and modalities per plan. Patient demo's all exercises well. Patient denies pain while performing exercises except mild discomfort in posterior knee with heel slides. STM to left knee reveals area of edema and tenderness in left posterior lateral aspect. Cold pack with IFC to complete session. assessment Posterior knee pain, left impression Patient tolerated ev al and treatment well. Patient presents with pain, decreased ROM, decreased muscle strength, tenderness/ muscle tightness on left knee. Patient performed stretching and strengthening exercises. Attempted to apply e-stim to left knee but patient unable to tolerate at lowest intensity. Patient received cold pack on posterior and anterior left knee post exercise. Patient issued written/ pictorial HEP and given blue theraband assessment Posterior knee pain, left assessment Body mass index [BMI] 29.0-29.9, adult assessment Posterior knee pain, left assessment Post-COVID syndrome assessment Hx pulmonary embolism 2 assessment Body mass index [BMI] 29.0-29.9, adult assessment Hx pulmonary embolism 2 assessment Nocturnal cough assessment Pain in left leg assessment Jaw pain assessment Hx pulmonary embolism 2 assessment Dyslipidemia assessment Essential (primary) hypertension assessment Body mass index [BMI] 30.0-30.9, adult impression IMPRESSION:1. Near complete resolution of left upper lobe nodule with remaining minimal scarring.2. Unchanged 6 mm ground-glass nodule in the right middle lobe. Additional sub centimeter ground-glass densities in bilateral lower lobes. Consider follow-up CT in 1 year.3. Large hiatal hernia. RPTAT: BBDICTATED BY: TAMIKO ANDERSON MDDICTATED DATE/TIME: 11/14/21 1007 assessment Pulmonary nodule assessment Acute pulmonary embo lism, unspecified pulmonary embolism type, unspecified whether acute cor pulmonale present assessment Scoliosis, unspecifi ed scoliosis type, unspecified spinal region assessment Pain in jaw not originating in t emporomandibular joint assessment Atypical chest pain assessment Essential (primary) hypertension assessment Pulmonary embolism, unspecified chronicity, unspecified pulmonary embolism type, unspecified whether acute cor pulmonale present assessment Body mass index [BMI] 29.0-29.9, adult assessment Flank pain assessment Diverticulosis assessment Elevated liver enzymes assessment Body mass index [BMI] 29.0-29.9, adult impression IMPRESSION:1. Segmen domo pulmonary embolism involving the posterior basal segmental artery in the right lower lobe.2. New peripheral left upper lobe 20 mm nodular opacity for which short-term chest CT follow-up is recommended in 3 months.3. Stable right middle lobe sub-centimeter ground-glass opacity.The above findings were discussed by telephone with Dr. Veliz at 03:20 p.m. on 1RPTAT: HMZDICTATED BY: ARIANE MANE MDDICTATED DATE/TIME: 08/31/21 1528 assessment History of breast cancer 2021 assessment Acute pulmonary embo lism, unspecified pulmonary embolism type, unspecified whether acute cor pulmonale present assessment Pulmonary nodule assessment Body mass index [BMI] 28.0-28.9, adult assessment Other pulmonary embolism without acute cor pulmonale assessment Health care maintenance assessment Invasive lobular carcinoma of le ft breast in female assessment History of bilateral mastectomy assessment Mixed hyperlipidemia assessment Hypertriglyceridemia assessment Stage 3 chronic kidn ey disease, unspecified whether stage 3a or 3b CKD assessment Elevated liver enzymes assessment Solitary pulmonary nodule assessment Acute left-sided low back pain w ithout sciatica assessment Body mass index [BMI] 28.0-28.9, adult assessment Impacted cerumen of left ear Aug assessment Solitary pulmonary nodule assessment Other pulmonary embolism without acute cor pulmonale assessment Encounter for screening for COVI D-19 assessment Encounter for screening for COVI D-19 assessment Body mass index (BMI) 29.0-29.9, adult assessment Health care maintenance assessment Stage 3 chronic kidn ey disease, unspecified whether stage 3a or 3b CKD assessment Invasive lobular carcinoma of ri ght breast, stage 2 assessment Hypertriglyceridemia assessment Gastro-esophageal reflux disease without esophagitis assessment Elevated liver enzymes assessment Body mass index (BMI) 28.0-28.9, adult impression Pt was seen recently at Dr Frank's office and was told her liver enzymes were elevated. AST was 32 in November and now it's 73 and ALT was 48 in November and now it's 81. assessment Elevated liver enzymes assessment Body mass index (BMI) 28.0-28.9, adult assessment Health care maintenance 021 assessment Invasive lobular carcinoma of ri ght breast, stage 2 assessment Stage 3 chronic kidn ey disease, unspecified whether stage 3a or 3b CKD assessment Hypertriglyceridemia assessment Mixed hyperlipidemia assessment Gastro-esophageal reflux disease without esophagitis assessment Body mass index (BMI) 28.0-28.9, adult assessment Mixed hyperlipidemia assessment History of bilateral mastectomy assessment Nevus assessment Hypertriglyceridemia assessment Health care maintenance assessment 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 assessment Stage 3 chronic kidn ey disease, unspecified whether stage 3a or 3b CKD assessment Seasonal allergies assessment Gastro-esophageal reflux disease without esophagitis assessment Body mass index (BMI) 27.0-27.9, adult assessment Hiatal hernia assessment S/P bilateral mastectomy 2019 assessment Health care maintenance assessment Left leg pain assessment 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 assessment Dysphagia, unspecified assessment Seasonal allergies assessment Pure hypercholesterolemia, unspe cified assessment Gastro-esophageal reflux disease without esophagitis assessment Stage 3 chronic kidn ey disease, unspecified whether stage 3a or 3b CKD assessment Body mass index (BMI) 26.0-26.9, adult assessment Bilateral impacted cerumen assessment Body mass index (BMI) 26.0-26.9, adult assessment Health care maintenance 020 assessment Esophagitis, unspecified 2019 assessment Seasonal allergies assessment Chronic cough assessment Impacted cerumen of both ears assessment Chronic kidney disease, stage 3 (moderate) assessment Pure hypercholesterolemia, unspe cified assessment Primary cancer of left breast Ju assessment Gastro-esophageal reflux disease without esophagitis impression P\\op bilateral maste ctomy 11/30/2019.Wounds ok. No swelling.Pathology explained to patient.She is to follow up with Dr. Frank. assessment Other specified postprocedural s tates assessment Primary cancer of left breast Ma impression P\\op bilateral maste ctomy 11/30/2019.Pathology report reviewed with patient.Wounds ok.Drains removed.Return to clinic after oncology follow up. (01/17/2020) assessment Other specified postprocedural s tates assessment Primary cancer of left breast Ap assessment Pure hypercholesterolemia, unspe cified assessment Gastro-esophageal reflux disease without esophagitis assessment Chronic kidney disease, stage 3 (moderate) assessment History of bilateral mastectomy assessment Primary cancer of left breast Ma assessment Body mass index (BMI) 27.0-27.9, adult assessment Neoplasm of uncertain behavior o f skin assessment Skin lesion assessment Body mass index (BMI) 27.0-27.9, adult impression Consultation for lef t breast cancer.Left breast lobular cancer.Thorough explanation.She does not know yet whether she want's lumpectomy with lymph node biopsy mastectomy or L\\R mastectomy. assessment Primary cancer of left breast Ma assessment Body mass index (BMI) 27.0-27.9, adult impression - Pt does not have m uch symptom now- Pt should avoid caffeine, citrus fruit and juice, chocolate, spicy foods, tomatoes and red sauce.- Pt can try to be off Protonix to see if she has any symptom. If she has heartburn when off the Protonix, she can go back on it. assessment Heartburn assessment Body mass index (BMI) 28.0-28.9, adult assessment Neoplasm of uncertain behavior o f skin assessment Skin lesion assessment Body mass index (BMI) 27.0-27.9, adult assessment Chronic nonintractable headache, unspecified headache type assessment Atypical nevi assessment Health care maintenance assessment Heartburn assessment Pure hypercholesterolemia, unspe cified assessment Chronic kidney disease, stage 3 (moderate) assessment Gastro-esophageal reflux disease without esophagitis assessment Body mass index (BMI) 27.0-27.9, adult impression Stable. 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 Pt is informed of the risks (bleeding, infection, perforation, reaction to sedation medications and cardiopulmonary arrest) and benefits of the procedure and agreeable to it. Pt is also informed of the alternatives to the procedure. assessment Encounter for screening for del gnant neoplasm of colon assessment Heartburn assessment Body mass index (BMI) 29.0-29.9, adult assessment Upper respiratory tract infectio n, unspecified type assessment Excessive cerumen in both ear ca nals assessment Temporary high blood pressure De assessment Chronic kidney disease, stage 3 (moderate) assessment Juvenile idiopathic scoliosis of thoracolumbar region assessment Pure hypercholesterolemia, unspe cified assessment Annual physical exam assessment Chronic kidney disease (CKD), st age II (mild) assessment Health care maintenance 018 assessment Juvenile idiopathic scoliosis of thoracolumbar region assessment Temporary high blood pressure Ju assessment Pure hypercholesterolemia, unspe cified assessment Body mass index (BMI) 29.0-29.9, adult assessment Health care maintenance assessment Chronic kidney disease, stage 3 (moderate) assessment Left leg pain assessment Juvenile idiopathic scoliosis of thoracolumbar region assessment Pure hypercholesterolemia, unspe cified assessment Temporary high blood pressure Fe assessment Body mass index (BMI) 29.0-29.9, adult assessment Follow up assessment Body mass index (BMI) 29.0-29.9, adult impression Rule out BCC respond ing to cryo-surgery. Therefore applied one more application of cryo-today and recommend follow-up in 2 months assessment Skin lesion assessment Body mass index (BMI) 28.0-28.9, adult impression Small 3 mm x 3 mm le clint on cheek. Applied cryo-surgery. Suspect could be BCC. Patient has had for the past 1 year and no change in size.Recommend follow-up in 2 months if still present will consider excisional biopsy. Patient is aware. assessment Skin lesion assessment Body mass index (BMI) 28.0-28.9, adult assessment Infection of skin assessment Dog bite, initial encounter assessment Body mass index (BMI) 28.0-28.9, adult impression Concerned about her toenails . No ER or hospitalization in 6 months. She walks 6 times a week for exercise. No problem with hearing and vision. NO snore. Saw dentist in Jan, 2017. Can walk independently 2 blocks without difficulty .ADLs / IADLs independent , No problem with bowel and urinary habit. No fall last year. Has bp machine at home. Told her to check at home . Wears seatbelt on cars. No drinking or smoking . Her will be her HCP. immunization uptodate, not remember the dates of tetanus and shingles. mammo 12/2016colonoscopy 2012 dexa 03/04/16 impression sent solution impression she checked at home and it ws 140/81 , told her to continue checking at home for 2 weeks , if > 150/90 , told her to come back and need medication. assessment Temporary high blood pressure Ju assessment Onychomycosis assessment Visit for annual health examinat ion assessment Body mass index (BMI) 28.0-28.9, adult assessment Bilateral impacted cerumen assessment Body mass index (BMI) 29.0-29.9, adult impression No visible lesion le clint and therefore will observe with follow-up in 5 months assessment Hx of basal cell carcinoma excis ion impression Cleared with cryosurgery 2016 assessment Viral warts, unspecified type Ma assessment Body mass index (BMI) 28.0-28.9, adult assessment Screening mammogram, encounter f or assessment 23-polyvalent pneumo coccal polysaccharide vaccine indication of patient age greater than 65 years impression told her to use ear drop first, if getting worse, will do irrigation impression refer to spine orthopedic, gave her infromation impression refill crestor, order blood test assessment Excessive ear wax, bilateral Dec assessment Chronic kidney disease (CKD), st age II (mild) assessment Juvenile idiopathic scoliosis of thoracolumbar region assessment Pure hypercholesterolemia, unspe cified assessment Body mass index (BMI) 28.0-28.9, adult impression Applied cryosurgery. If no relief in 2 months will shave biopsy.Recommend two-month follow-up. assessment Viral warts, unspecified type Ma assessment Body mass index (BMI) 29.0-29.9, adult impression Applied cryosurgery to wart on right handScar on forehead of BCC excision.follow up 2 months. assessment Viral wart, unspecified 017 impression Pt reports no c/o pa in to L ant and outer thigh, good jazmine to Rx noted. assessment Left thigh pain impression Pt recd Rx as per pl an,good jazmine noted, no s/s of ttp during MFR using foam roll assessment Left thigh pain impression Pt recd Rx as per pl an,good jazmine noted, added NK and Leg press for bilat LE strengthening. assessment Left thigh pain impression Pt recd Rx as per pl an,good jazmine noted. Pt recd foam roll to L IT band area for MFR, mild c/o tenderness during process. assessment Left thigh pain assessment Body mass index (BMI) 19 or less , adult impression need auth for remova l of SK from right hand.Also due to Hx. o Basal Cell skin cancer will follow 3 months. assessment Seborrheic keratosis impression Patient received hiro atment as per plan. Initiated ultrasound to left hip and thigh this visit. Patient tolerated treatment well assessment Left thigh pain impression Patient received hiro atment as per plan. Initiated STM this visit. Tenderness noted over IT band and greater trochanter. Patient tolerated treatment well wit increased reps on thera ex assessment Left thigh pain impression Patient received hiro atment as per plan. Patient tolerated treatment well. Patient issued written/ pictoral HEP and given blue theraband assessment Left thigh pain impression Patient tolerated ev al and treatment well. Patient presents with pain, decreased ROM, decreased muscle strength, tenderness/ muscle tightness assessment Left thigh pain assessment Body mass index (BMI) 29.0-29.9, adult assessment Routine health maintenance impression done blood test and mammo in november dexa done and normal colonoscopy done in 2012 , normal pap - said inconclusive this year , will do next time next year. assessment Juvenile idiopathic scoliosis of thoracolumbar region impression x ray showed moderat e OA in left hip and she also has scoliosis and possible siatic pain. She got approval for PT. Explained her to do PT and takes only tylenol for pain. assessment Chronic kidney disease (CKD), st age II (mild) assessment Pure hypercholesterolemia, unspe cified assessment Basal cell carcinoma of skin of scalp and neck assessment Left leg pain assessment Body mass index (BMI) 29.0-29.9, adult assessment Chronic kidney disease, stage 1 assessment Left thigh pain impression 1. Incomplete excisi on.2. Discussed options.including wide excision, aldara, to watch. assessment Basal cell carcinoma of skin of scalp and neck assessment Seborrheic keratoses impression "" assessment Basal cell carcinoma of skin of other parts of face assessment Basal cell carcinoma of skin of scalp and neck assessment Melanocytic nevi, unspecified Ju impression "" assessment Other benign neoplasm of skin, u nspecified assessment Basal cell carcinoma of skin of scalp and neck assessment Dyschromic skin lesion of pinta assessment Idiopathic scoliosis with double curvature of thoracic spine assessment External hemorrhoids with other complication assessment Bright red rectal bleeding assessment Body mass index (BMI) 28.0-28.9, adult assessment 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 assessment Incontinence assessment Chronic kidney disease, stage 3 (moderate) assessment 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 assessment Body mass index (BMI) 28.0-28.9, adult assessment Melanocytic nevi, unspecified Ma assessment Chronic kidney disease, stage 3 (moderate) assessment Arm pain, right assessment Basal cell carcinoma of skin of scalp and neck assessment Chronic kidney disease, stage 1 assessment Body mass index (BMI) 28.0-28.9, adult assessment Body mass index (BMI) 29.0-29.9, adult assessment Left otitis media, u nspecified chronicity, unspecified otitis media type assessment Body mass index (BMI) 29.0-29.9, adult assessment Encounter for immunization assessment Dense breasts assessment Flu vaccine need assessment Encounter for immunization Patient Care Teams Name Effective Dates (start - stop) Status Members No Information
--- NOTE | 2025-03-01 12:19 | DVH ---
EXAM: XY PELVIS AP CLINICAL INDICATION: post op L GILDARDO TECHNIQUE: XY PELVIS AP Comparison: None FINDINGS/IMPRESSION: There is no evidence of acute fracture or dislocation. Left hip arthroplasty. Moderate right hip osteoarthritis The alignment is anatomical. There is no radiopaque foreign body.
--- NOTE | 2025-03-01 12:24 | DVH ---
CLINICAL INDICATION: TOTAL HIP ARTHROPLASTY TECHNIQUE: 1 radiographic views of the left hip were obtained. Comparison: None FINDINGS/IMPRESSION: Postsurgical changes from left hip arthroplasty.
[2025-03-01] MEDS: HYDROmorphone HCL 2 MG/ML VL/or syr IV PRN (12:59)
[2025-03-01] MEDS: CLINDAMYCIN 600MG IV 50 ML IV SCH (13:50)
[2025-03-01] MEDS ORDERED: MORPHINE SULFATE INJ 2 MG/ml SYRG IV PRN (14:30)
[2025-03-01] MEDS ORDERED: OXYCODONE W/ ACETAMINOPHEN 5/325MG TABLET PO PRN (14:30)
[2025-03-01] MEDS: ceFAZolin 1GM/50ML 50 ML IV SCH (15:00)
[2025-03-01] MEDS: ONDANSETRON HCL 4 MG/2 ML VIAL IV PRN (18:01)
[2025-03-01 20:00] VITALS: PULSE 81; RESP 18; O2SAT 94
[2025-03-01 21:00] VITALS: BP 112/53; PULSE 82; RESP 18; TEMP 98.1; O2SAT 94
[2025-03-01] MEDS: ENOXAPARIN SOD 30 MG/0.3 ML SYRINGE SC SCH (21:17)
[2025-03-01] MEDS: DOCUSATE SOD 100 MG CAP PO SCH (21:17)
[2025-03-01] MEDS: ACETAMINOPHEN 325 MG TAB PO PRN (22:09)
[2025-03-02 01:00] VITALS: BP 108/50; PULSE 81; RESP 18; TEMP 97.9; O2SAT 95
[2025-03-02 05:00] VITALS: BP 106/51; PULSE 83; RESP 18; TEMP 97.7; O2SAT 97
[2025-03-02 06:54] LABS: Potassium 4.6 mmol/L (3.5-5.1); Sodium 142 mmol/L (136-145)
[2025-03-02 06:55] LABS: Anion Gap 10 (5-15); Calcium 9.7 mg/dL (8.7-10.4); Carbon Dioxide 24 mmol/L (20-31); Chloride 108 mmol/L (98-107)
[2025-03-02 07:00] LABS: BUN/Creatinine Ratio 10.7 (10.0-20.0); Blood Urea Nitrogen 9 mg/dL (9-23); Glucose 129 mg/dL (74-106)
[2025-03-02 07:24] LABS: Hematocrit 33.5 % (36.0-46.0); Hemoglobin 11.4 g/dL (12.2-16.2)
[2025-03-02 09:00] VITALS: BP 114/55; PULSE 83; RESP 16; TEMP 97.5; O2SAT 98
[2025-03-02] MEDS: METOCLOPRAMIDE HCL 5MG/ml INJ 2ml VIAL IV ONE (09:42)
--- NOTE | 2025-03-02 12:25 | DVHPN2 ---
Date of Progress Note Date of Progress Note Date of Progress Note: 03/02/25 Date of Admission Date of Admission Date of Admission: Date of Admission: Mar 01, 2025 at 11:14 Overnight Events Overnight events Overnight Events pt jazmine pain on PO meds, jazmine PT, walking down a[place]mendi with FWW, assist, bloom out, able to void Family History Family History Family History: Colon cancer G8 MOTHER, , Onset:60 years & older Diabetes mellitus G8 MOTHER, , Onset:50's - 60 G8 FATHER, , Onset:60 years & older Allergies: Coded Allergies: Atorvastatin (Verified Allergy, Unknown, 11/28/19) Home Meds Reported Medications Omeprazole (Gnp Omeprazole) 20 Mg Tab, 20 MG PO DAILY, TAB 02/24/25 Multiple Minerals W/ Vitamins (CALCIUM & VITAMIN D3 BONE) Bone Liq, 1 TAB OR DAILY, LIQ 02/24/25 Magnesium Oxide (MAGNESIUM OXIDE) 400 Mg Tab, 250 MG OR DAILY, TAB 02/24/25 Letrozole (Femara) 2.5 Mg Tab, 1 TAB PO DAILY, #30 TAB 11 Refills 08/30/21 Rosuvastatin Calcium (Crestor) 5 Mg Tab, 1 TAB PO DAILY 07/01/13 Current Medications Current Medications Medications (Trade) Dose Ordered Sig/Jane Route PRN Reason Start Time Stop Time Status Last Admin Docusate Sodium (Colace Capsule) 100 mg Q12HR PO 03/01/25 22:00 03/02/25 09:50 Enoxaparin Sodium (Lovenox) 30 mg Q12HR SC 03/01/25 22:00 03/02/25 09:50 Cefazolin Sodium 50 ml @ 50 mls/hr Q6H IV 03/01/25 15:00 03/02/25 03:59 DC 03/02/25 02:49 Acetaminophen (Tylenol Tablet) 650 mg Q4HP PRN PO PAIN SCALE 1-3 OR TEMP>100.4 03/01/25 14:30 03/02/25 06:34 Acetaminophen/ Hydrocodone Bitart ([place] 10/325MG Tab) 1 tab Q4HP PRN PO MODERATE PAIN (4-6 PAIN SCALE) 03/01/25 14:30 Morphine Sulfate 2 mg Q4HPRN PRN IV SEVERE PAIN (7-10 PAIN SCALE) 03/01/25 14:30 Hold Oxycodone/ Acetaminophen (Percocet 5/ 325MG Tablet) 1 tab Q4HP PRN PO SEVERE PAIN (7-10 PAIN SCALE) 03/01/25 14:30 Physical Examination General Examination: Last Vital sign Vital Signs Date Time Temp Pulse Resp B/P (MAP) Pulse Ox O2 Delivery O2 Flow Rate FiO2 03/02/25 09:00 97.5 83 16 114/55 (74) 98 97.5 03/01/25 20:00 Room Air* 0 21 General: General: No apparent distress, appears comfortable. Cooperative. Extremities: Left buttock, no drainage, NVI L LE, no LLD Neurological Examination: Neurological Examination: Mental Status: Cranial Nerves: Motor Examination: Reflexes: Sensory: Coordination: Gait: Labs: Labs: Laboratory Tests Test 02/27/25 10:54 03/02/25 06:31 Range/Units White Blood Count 6.3 4.4-10.8 10^3/uL Red Blood Count 3.85 L 4.0-5.20 10^6/uL Hemoglobin 12.7 11.4 L 12.2-16.2 g/dL Hematocrit 35.9 L 33.5 L 36.0-46.0 % Mean Corpuscular Volume 93.2 80.0-100.0 fL Mean Corpuscular Hemoglobin 33.0 H 28.0-32.0 pg Mean Corpuscular Hemoglobin Concent 35.4 32.0-36.0 g/dL Red Cell Distribution Width 13.5 11.8-14.3 % Platelet Count 260 140-450 10^3/uL Mean Platelet Volume 7.8 6.9-10.8 fL Neutrophils (%) (Auto) 64.2 37.0-80.0 % Lymphocytes (%) (Auto) 22.9 10.0-50.0 % Monocytes (%) (Auto) 9.4 0.0-12.0 % Eosinophils (%) (Auto) 2.8 0.0-7.0 % Basophils (%) (Auto) 0.7 0.0-2.0 % Neutrophils # (Auto) 4.0 1.6-8.6 10 ^3/uL Lymphocytes # (Auto) 1.4 0.4-5.4 10 ^3/uL Monocytes # (Auto) 0.6 0-1.3 10 ^3/uL Eosinophils # (Auto) 0.2 0-0.8 10 ^3/uL Basophils # (Auto) 0 0-0.2 10 ^3/uL Nucleated Red Blood Cells 0.1 % Prothrombin Time 10.7 9.3-11.8 sec Prothrombin Time INR 1.01 0.9-1.15 Activated Partial Thromboplast Time 26.9 24.5-34.5 SEC Urine Color Colorless Yellow Urine Clarity Clear Clear Urine pH 6.5 5.0-9.0 Urine Specific [place] 1.004 1.001-1.035 Urine Protein Negative Negative Urine Ketones Negative Negative Urine Blood Trace H Negative /uL Urine Nitrite Negative Negative Urine Bilirubin Negative Negative Urine Urobilinogen Normal Negative mg/dL Urine Leukocyte Esterase Negative Negative /uL Urine RBC 1 0 - 4 /hpf Urine Microscopic WBC < 1 0-5 /HPF Urine Squamous Epithelial Cells Few <5 /hpf Urine Bacteria None seen None Seen /hpf Urine Glucose Normal Normal mg/dL Sodium Level 144 142 136-145 mmol/L Potassium Level 4.0 4.6 3.5-5.1 mmol/L Chloride Level 109 H 108 H 98-107 mmol/L Carbon Dioxide Level 25 24 20-31 mmol/L Anion Gap 10 10 5-15 Blood Urea Nitrogen 14 9 9-23 mg/dL Creatinine 0.88 0.84 0.550-1.02 mg/dL Glomerular Filtration Rate Calc 68 72 >90 mL/min BUN/Creatinine Ratio 15.9 10.7 10.0-20.0 Serum Glucose 88 129 H 74-106 mg/dL Calcium Level 10.3 9.7 8.7-10.4 mg/dL Total Bilirubin 0.5 0.2-1.0 mg/dL Aspartate Amino Transferase (AST) 19 <34 U/L Alanine Aminotransferase (ALT) 13 7-40 U/L Alkaline Phosphatase 123 H 46-116 U/L Total Protein 7.2 5.7-8.2 g/dL Albumin 4.5 3.2-4.8 g/dL Assessment/Plan Assessment/Plan Assessment and Plan:Emily Mccoy is a 74 year old female POD 1 s/p left GILDARDO, doing well XR shows good position of GILDARDO L 1) continue PT' 2) dc bloom, I/O cath q 6 prn 3) clear for dc from ortho [facility] when pain under control 4) follow up ortho clinic 2 wks Plan discussed with: Patient DEANDRE VALLE MD Mar 02, 2025 12:25
[2025-03-02 13:00] VITALS: BP 107/50; PULSE 96; RESP 14; TEMP 98; O2SAT 93
--- NOTE | 2025-03-02 14:37 | DVHHP2 ---
Review of Systems Allergies: Coded Allergies: Atorvastatin (Verified Allergy, Unknown, 11/28/19) Medications Current Medications Medications Dose Ordered Sig/Jane Route Start Time Stop Time Status Last Admin Dose Admin Ondansetron HCl 4 mg Q6HP PRN IV 03/01/25 11:15 03/01/25 18:01 4 MG Docusate Sodium 100 mg Q12HR PO 03/01/25 22:00 03/02/25 09:50 100 MG Bisacodyl 5 mg Q12HP PRN PO 03/01/25 11:15 Enoxaparin Sodium 30 mg Q12HR SC 03/01/25 22:00 03/02/25 09:50 30 MG Nitroglycerin 0.4 mg Q5MINP PRN SL 03/01/25 11:15 Acetaminophen 650 mg Q4HP PRN PO 03/01/25 14:30 03/02/25 06:34 650 MG Acetaminophen/ Hydrocodone Bitart 1 tab Q4HP PRN PO 03/01/25 14:30 Pantoprazole Sodium 40 mg DAILY@0600 PO 03/03/25 06:00 UNV Exam Vital Signs Vital Signs Date Time Temp Pulse Resp B/P (MAP) Pulse Ox O2 Delivery O2 Flow Rate FiO2 03/02/25 13:00 98.0 96 14 107/50 (69) 93 98.0 03/01/25 20:00 Room Air* 0 21 Labs/Xrays Labs Test 03/02/25 06:31 02/27/25 10:54 Range/Units Hemoglobin 11.4 L 12.2-16.2 g/dL Hematocrit 33.5 L 36.0-46.0 % Sodium Level 142 136-145 mmol/L Potassium Level 4.6 3.5-5.1 mmol/L Chloride Level 108 H 98-107 mmol/L Carbon Dioxide Level 24 20-31 mmol/L Anion Gap 10 5-15 Blood Urea Nitrogen 9 9-23 mg/dL Creatinine 0.84 0.550-1.02 mg/dL Glomerular Filtration Rate Calc 72 >90 mL/min BUN/Creatinine Ratio 10.7 10.0-20.0 Serum Glucose 129 H 74-106 mg/dL Calcium Level 9.7 8.7-10.4 mg/dL White Blood Count 6.3 4.4-10.8 10^3/uL Red Blood Count 3.85 L 4.0-5.20 10^6/uL Mean Corpuscular Volume 93.2 80.0-100.0 fL Mean Corpuscular Hemoglobin 33.0 H 28.0-32.0 pg Mean Corpuscular Hemoglobin Concent 35.4 32.0-36.0 g/dL Red Cell Distribution Width 13.5 11.8-14.3 % Platelet Count 260 140-450 10^3/uL Mean Platelet Volume 7.8 6.9-10.8 fL Neutrophils (%) (Auto) 64.2 37.0-80.0 % Lymphocytes (%) (Auto) 22.9 10.0-50.0 % Monocytes (%) (Auto) 9.4 0.0-12.0 % Eosinophils (%) (Auto) 2.8 0.0-7.0 % Basophils (%) (Auto) 0.7 0.0-2.0 % Neutrophils # (Auto) 4.0 1.6-8.6 10 ^3/uL Lymphocytes # (Auto) 1.4 0.4-5.4 10 ^3/uL Monocytes # (Auto) 0.6 0-1.3 10 ^3/uL Eosinophils # (Auto) 0.2 0-0.8 10 ^3/uL Basophils # (Auto) 0 0-0.2 10 ^3/uL Nucleated Red Blood Cells 0.1 % Prothrombin Time 10.7 9.3-11.8 sec Prothrombin Time INR 1.01 0.9-1.15 Activated Partial Thromboplast Time 26.9 24.5-34.5 SEC Urine Color Colorless Yellow Urine Clarity Clear Clear Urine pH 6.5 5.0-9.0 Urine Specific [place] 1.004 1.001-1.035 Urine Protein Negative Negative Urine Ketones Negative Negative Urine Blood Trace H Negative /uL Urine Nitrite Negative Negative Urine Bilirubin Negative Negative Urine Urobilinogen Normal Negative mg/dL Urine Leukocyte Esterase Negative Negative /uL Urine RBC 1 0 - 4 /hpf Urine Microscopic WBC < 1 0-5 /HPF Urine Squamous Epithelial Cells Few <5 /hpf Urine Bacteria None seen None Seen /hpf Urine Glucose Normal Normal mg/dL Total Bilirubin 0.5 0.2-1.0 mg/dL Aspartate Amino Transferase (AST) 19 <34 U/L Alanine Aminotransferase (ALT) 13 7-40 U/L Alkaline Phosphatase 123 H 46-116 U/L Total Protein 7.2 5.7-8.2 g/dL Albumin 4.5 3.2-4.8 g/dL Assessment/Plan Assessment/Plan see dictated note Plan discussed with: Patient My Orders Orders - DINESH DE LA ROSA MD Procedure Category Date Status Time * Cookie Mixer Helper CONS 03/02/25 Transmitted Consult Pantoprazole Tablet PHA 03/03/25 Logged (Protonix Tablet) 06:00 Complete Blood Count LAB 03/03/25 Verified 06:00 Comprehensive LAB 03/03/25 Verified Metabolic Panel 06:00 Date of Service: Mar 02, 2025 Billing Provider: DINESH DE LA ROSA MD Common Visit Codes: [id number] INP/OBS CARE (HIGH) Secondary Visit Codes: [id number] CARE PLAN 30 MINUTES DINESH DE LA ROSA MD Mar 02, 2025 14:37
--- NOTE | 2025-03-02 15:08 | DVHHP ---
ADMIT DATE: 03/01/2025 HISTORY OF PRESENT ILLNESS: The patient is a 74-year-old lady who is admitted after she underwent surgery on the left hip for DJD of the hip. The patient at this time denies any significant pain. No chest pain or shortness of breath. No nausea or vomiting. REVIEW OF SYSTEMS: Review of rest of systems is otherwise currently negative. PAST MEDICAL HISTORY: Significant for breast cancer, hyperlipidemia, and GERD. MEDICATIONS: Include omeprazole, rosuvastatin, and letrozole. ALLERGIES: TO ATORVASTATIN. SOCIAL HISTORY: Lives at home with her . Denies smoking or alcohol. FAMILY HISTORY: Negative. PHYSICAL EXAMINATION: GENERAL: The patient is awake and alert. VITAL SIGNS: Temperature of 97.5, pulse 83 per minute, blood pressure 114/55. SHEENT: Unremarkable. NECK: There is no JVD. No pedal edema. LUNGS: Equal bilaterally. No added sounds. CARDIOVASCULAR: S1 and S2 are regular. No murmurs. ABDOMEN: Soft. There is no organomegaly. NEUROLOGIC: Nonfocal. MUSCULOSKELETAL: There is a dressing at the site of the left hip surgery. ASSESSMENT AND PLAN: * Hyperlipidemia. * History of breast cancer. We will resume letrozole. * GERD. * Status post left hip surgery for DJD of the hip for which she will receive physical therapy and arrangements will be made for SNF placement. * Advanced care planning: The patient is a full code-Time spent was 18 minutes. MD CALLUM Das/JUNE TID: [id number] RECEIPT: [id number] [facility]
[2025-03-02 21:00] VITALS: BP 109/84; PULSE 123; RESP 18; TEMP 98; O2SAT 92
[2025-03-02] MEDS: HYDROcodone-ACET 10/325MG TAB PO PRN (22:26)
[2025-03-02] MEDS: LETROZOLE 2.5 MG TABLETS PO SCH (22:27)
[2025-03-03 01:00] VITALS: BP 107/67; PULSE 92; RESP 18; TEMP 97.8; O2SAT 93
[2025-03-03 05:00] VITALS: BP 120/66; PULSE 79; RESP 18; TEMP 98; O2SAT 96
[2025-03-03 05:42] LABS: Basophils # (auto) 0 10 ^3/uL (0-0.2); Basophils % (auto) 0.3 % (0.0-2.0); Eosinophils # (auto) 0 10 ^3/uL (0-0.8); Eosinophils % (auto) 0.4 % (0.0-7.0); Hematocrit 30.8 % (36.0-46.0); Hemoglobin 10.6 g/dL (12.2-16.2); Lymphocytes # (auto) 1.4 10 ^3/uL (0.4-5.4); Lymphocytes % (auto) 15.4 % (10.0-50.0); Mean Corpuscular Hemoglobin 32.3 pg (28.0-32.0); Mean Corpuscular Hgb Conc. 34.3 g/dL (32.0-36.0); Mean Corpuscular Volume 94.2 fL (80.0-100.0); Monocytes # (auto) 0.9 10 ^3/uL (0-1.3); Monocytes % (auto) 10.2 % (0.0-12.0); Neutrophils # (auto) 6.6 10 ^3/uL (1.6-8.6); Neutrophils % (auto) 73.7 % (37.0-80.0); Platelet Count (auto) 233 10^3/uL (140-450); Red Blood Cells 3.27 10^6/uL (4.0-5.20); Red Cell Distribution Width 13.9 % (11.8-14.3)
[2025-03-03 05:58] LABS: Alanine Aminotransferase 10 U/L (7-40); Alkaline Phosphatase 93 U/L (46-116); Anion Gap 9 (5-15); BUN/Creatinine Ratio 17.9 (10.0-20.0); Blood Urea Nitrogen 14 mg/dL (9-23); Calcium 9.6 mg/dL (8.7-10.4); Carbon Dioxide 26 mmol/L (20-31); Glucose 99 mg/dL (74-106); Potassium 4.2 mmol/L (3.5-5.1); Sodium 144 mmol/L (136-145); Total Protein 6.2 g/dL (5.7-8.2)
[2025-03-03 05:59] LABS: Albumin 3.9 g/dL (3.2-4.8); Aspartate Aminotransferase 24 U/L (<34); Bilirubin, Total 0.6 mg/dL (0.2-1.0)
[2025-03-03] MEDS: PANTOPRAZOLE 40 MG TAB PO SCH (06:26)
[2025-03-03 06:33] LABS: Chloride 109 mmol/L (98-107)
[2025-03-03 09:00] VITALS: BP 123/65; PULSE 95; RESP 18; TEMP 96.7; O2SAT 97
[2025-03-03] MEDS ORDERED: LETROZOLE 2.5 MG PO SCH (10:00)
--- NOTE | 2025-03-03 10:23 | DVHPN2 ---
Date of Progress Note Date of Progress Note Date of Progress Note: 03/03/25 Date of Admission Date of Admission Date of Admission: Date of Admission: Mar 01, 2025 at 11:14 Overnight Events Overnight events Overnight Events Pt jazmine pain on PO meds, able to void, did well with PT Family History Family History Family History: Colon cancer G8 MOTHER, , Onset:60 years & older Diabetes mellitus G8 MOTHER, , Onset:50's - 60 G8 FATHER, , Onset:60 years & older Allergies: Coded Allergies: Atorvastatin (Verified Allergy, Unknown, 11/28/19) Home Meds Reported Medications Omeprazole (Gnp Omeprazole) 20 Mg Tab, 20 MG PO DAILY, TAB 02/24/25 Multiple Minerals W/ Vitamins (CALCIUM & VITAMIN D3 BONE) Bone Liq, 1 TAB OR DAILY, LIQ 02/24/25 Magnesium Oxide (MAGNESIUM OXIDE) 400 Mg Tab, 250 MG OR DAILY, TAB 02/24/25 Letrozole (Femara) 2.5 Mg Tab, 1 TAB PO DAILY, #30 TAB 11 Refills 08/30/21 Rosuvastatin Calcium (Crestor) 5 Mg Tab, 1 TAB PO DAILY 07/01/13 Current Medications Current Medications Medications (Trade) Dose Ordered Sig/Jane Route PRN Reason Start Time Stop Time Status Last Admin Pantoprazole Sodium (Protonix Tablet) 40 mg DAILY@0600 PO 03/03/25 06:00 03/03/25 06:26 Patient Own Medication 1 tab DAILY PO 03/03/25 10:00 03/02/25 19:42 DC Patient Own Medication 1 DAILY PO 03/02/25 19:38 03/02/25 22:27 Physical Examination General Examination: Last Vital sign Vital Signs Date Time Temp Pulse Resp B/P (MAP) Pulse Ox O2 Delivery O2 Flow Rate FiO2 03/03/25 09:00 96.7 95 18 123/65 (84) 97 96.7 03/02/25 20:00 Room Air* 0 21 General: General: No apparent distress, appears comfortable. Cooperative. Extremities: Left buttock, dressing clean/dry NVI left LE Skin: no drainage Neurological Examination: Neurological Examination: Mental Status: Cranial Nerves: Motor Examination: Reflexes: Sensory: Coordination: Gait: NVI Labs: Labs: Laboratory Tests Test 02/27/25 10:54 03/02/25 06:31 03/03/25 05:19 Range/Units White Blood Count 6.3 9.0 # 4.4-10.8 10^3/uL Red Blood Count 3.85 L 3.27 L 4.0-5.20 10^6/uL Hemoglobin 12.7 11.4 L 10.6 L 12.2-16.2 g/dL Hematocrit 35.9 L 33.5 L 30.8 L 36.0-46.0 % Mean Corpuscular Volume 93.2 94.2 80.0-100.0 fL Mean Corpuscular Hemoglobin 33.0 H 32.3 H 28.0-32.0 pg Mean Corpuscular Hemoglobin Concent 35.4 34.3 32.0-36.0 g/dL Red Cell Distribution Width 13.5 13.9 11.8-14.3 % Platelet Count 260 233 140-450 10^3/uL Mean Platelet Volume 7.8 7.7 6.9-10.8 fL Neutrophils (%) (Auto) 64.2 73.7 37.0-80.0 % Lymphocytes (%) (Auto) 22.9 15.4 10.0-50.0 % Monocytes (%) (Auto) 9.4 10.2 0.0-12.0 % Eosinophils (%) (Auto) 2.8 0.4 0.0-7.0 % Basophils (%) (Auto) 0.7 0.3 0.0-2.0 % Neutrophils # (Auto) 4.0 6.6 1.6-8.6 10 ^3/uL Lymphocytes # (Auto) 1.4 1.4 0.4-5.4 10 ^3/uL Monocytes # (Auto) 0.6 0.9 0-1.3 10 ^3/uL Eosinophils # (Auto) 0.2 0 0-0.8 10 ^3/uL Basophils # (Auto) 0 0 0-0.2 10 ^3/uL Nucleated Red Blood Cells 0.1 0.0 % Prothrombin Time 10.7 9.3-11.8 sec Prothrombin Time INR 1.01 0.9-1.15 Activated Partial Thromboplast Time 26.9 24.5-34.5 SEC Urine Color Colorless Yellow Urine Clarity Clear Clear Urine pH 6.5 5.0-9.0 Urine Specific [place] 1.004 1.001-1.035 Urine Protein Negative Negative Urine Ketones Negative Negative Urine Blood Trace H Negative /uL Urine Nitrite Negative Negative Urine Bilirubin Negative Negative Urine Urobilinogen Normal Negative mg/dL Urine Leukocyte Esterase Negative Negative /uL Urine RBC 1 0 - 4 /hpf Urine Microscopic WBC < 1 0-5 /HPF Urine Squamous Epithelial Cells Few <5 /hpf Urine Bacteria None seen None Seen /hpf Urine Glucose Normal Normal mg/dL Sodium Level 144 142 144 136-145 mmol/L Potassium Level 4.0 4.6 4.2 3.5-5.1 mmol/L Chloride Level 109 H 108 H 109 H 98-107 mmol/L Carbon Dioxide Level 25 24 26 20-31 mmol/L Anion Gap 10 10 9 5-15 Blood Urea Nitrogen 14 9 14 9-23 mg/dL Creatinine 0.88 0.84 0.78 0.550-1.02 mg/dL Glomerular Filtration Rate Calc 68 72 79 >90 mL/min BUN/Creatinine Ratio 15.9 10.7 17.9 10.0-20.0 Serum Glucose 88 129 H 99 74-106 mg/dL Calcium Level 10.3 9.7 9.6 8.7-10.4 mg/dL Total Bilirubin 0.5 0.6 0.2-1.0 mg/dL Aspartate Amino Transferase (AST) 19 24 <34 U/L Alanine Aminotransferase (ALT) 13 10 7-40 U/L Alkaline Phosphatase 123 H 93 46-116 U/L Total Protein 7.2 6.2 5.7-8.2 g/dL Albumin 4.5 3.9 3.2-4.8 g/dL Imaging Imagin03/01/25 XR left hjip, GILDARDO in good position Assessment/Plan Assessment/Plan Assessment and Plan:Emliy Mccoy is a 74 year old female POD 2 s/p LEFT GILDARDO clear for dc from [facility] vs SNF per patent request follow up ortho clinic 2 wks keep dressing clean/dry Plan discussed with: Patient DEANDRE VALLE MD Mar 03, 2025 10:23
--- NOTE | 2025-03-03 12:22 | DVHPN2 ---
Reviewed: Care Plan, H&P, Labs, Medications, Previous Orders, Radiology Changes from previous H/P or p: No Changes Objective Vitals Vital Signs Date Time Temp Pulse Resp B/P (MAP) Pulse Ox O2 Delivery O2 Flow Rate FiO2 03/03/25 09:00 96.7 95 18 123/65 (84) 97 96.7 03/02/25 20:00 Room Air* 0 21 Intake/Output Intake and Output 03/03/25 07:00 Intake Total 2198 ml Balance 2198 ml Intake Oral 2198 ml # Voids 3 Medications Current Medications Medications Dose Ordered Sig/Jane Route Start Time Stop Time Status Last Admin Dose Admin Ondansetron HCl 4 mg Q6HP PRN IV 03/01/25 11:15 03/01/25 18:01 4 MG Docusate Sodium 100 mg Q12HR PO 03/01/25 22:00 03/03/25 10:22 100 MG Bisacodyl 5 mg Q12HP PRN PO 03/01/25 11:15 Enoxaparin Sodium 30 mg Q12HR SC 03/01/25 22:00 03/03/25 10:23 30 MG Nitroglycerin 0.4 mg Q5MINP PRN SL 03/01/25 11:15 Acetaminophen 650 mg Q4HP PRN PO 03/01/25 14:30 03/02/25 06:34 650 MG Acetaminophen/ Hydrocodone Bitart 1 tab Q4HP PRN PO 03/01/25 14:30 03/03/25 10:25 1 TAB Pantoprazole Sodium 40 mg DAILY@0600 PO 03/03/25 06:00 03/03/25 06:26 40 MG Patient Own Medication 1 DAILY PO 03/02/25 19:38 03/03/25 10:26 1 Laboratory Results Laboratory Tests 03/03/25 05:19 Chemistry Test 03/03/25 05:19 Albumin 3.9 g/dL (3.2-4.8) Calcium Level 9.6 mg/dL (8.7-10.4) Total Protein 6.2 g/dL (5.7-8.2) LFT Test 03/03/25 05:19 Alanine Aminotransferase (ALT) 10 U/L (7-40) Alkaline Phosphatase 93 U/L (46-116) Aspartate Amino Transferase (AST) 24 U/L (<34) Total Bilirubin 0.6 mg/dL (0.2-1.0) Urinalysis Test 02/27/25 10:54 Urine Color Colorless (Yellow) Urine Clarity Clear (Clear) Urine pH 6.5 (5.0-9.0) Urine Specific [place] 1.004 (1.001-1.035) Urine Protein Negative (Negative) Urine Ketones Negative (Negative) Urine Blood Trace /uL (Negative) H Urine Nitrite Negative (Negative) Urine Bilirubin Negative (Negative) Urine Urobilinogen Normal mg/dL (Negative) Urine Leukocyte Esterase Negative /uL (Negative) Urine RBC 1 /hpf (0 - 4) Urine Microscopic WBC < 1 /HPF (0-5) Urine Squamous Epithelial Cells Few /hpf (<5) Urine Bacteria None seen /hpf (None Seen) Urine Glucose Normal mg/dL (Normal) Labs and/or images reviewed: Labs reviewed by me, Image(s) reviewed by me Assessment/Plan Assessment/Plan Covering for Dr. 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 Weinberg on 03-01-25 History of breast cancer continue letrozole GERD Physical therapy ordered Patient will be discharged to residential facility for rehab. Plan discussed with: Patient Date of Service: Mar 03, 2025 Billing Provider: BURAK CULP MD Common Visit Codes: [id number] INP/OBS CARE(HIGH) BURAK CULP MD Mar 03, 2025 12:22
[2025-03-03 13:00] VITALS: BP 106/58; PULSE 87; RESP 16; TEMP 97; O2SAT 98
[2025-03-03 16:37] VITALS: BP 126/68; PULSE 86; RESP 14; TEMP 97.5; O2SAT 97
[2025-03-03 21:00] VITALS: BP 127/65; PULSE 85; RESP 18; TEMP 97.8; O2SAT 96
[2025-03-04 00:14] VITALS: BP 122/60; PULSE 77; RESP 20; TEMP 98; O2SAT 99
[2025-03-04 01:00] VITALS: BP 122/60; PULSE 77; RESP 20; TEMP 98; O2SAT 99
[2025-03-04 05:00] VITALS: BP 111/69; PULSE 89; RESP 18; TEMP 98; O2SAT 96
[2025-03-04 05:41] LABS: Hematocrit 31.9 % (36.0-46.0); Hemoglobin 11.1 g/dL (12.2-16.2)
[2025-03-04 09:00] VITALS: BP_SYST 100; BP_SYST 123; BP_DIAS 61; BP_DIAS 85; PULSE 60; PULSE 80; RESP 20; TEMP 96.9; TEMP 97.6; O2SAT 94; O2SAT 97
--- NOTE | 2025-03-04 11:19 | DVHPN2 ---
Reviewed: Care Plan, H&P, Labs, Medications, Previous Orders, Radiology Changes from previous H/P or p: No Changes Objective Vitals Vital Signs Date Time Temp Pulse Resp B/P (MAP) Pulse Ox O2 Delivery O2 Flow Rate FiO2 03/04/25 09:00 97.6 80 20 100/61 (74) 94 97.6 03/03/25 20:00 Room Air* 0 21 Intake/Output Intake and Output 03/04/25 07:00 Intake Total 1120 ml Balance 1120 ml Intake Oral 1120 ml # Voids 3 Medications Current Medications Medications Dose Ordered Sig/Jane Route Start Time Stop Time Status Last Admin Dose Admin Ondansetron HCl 4 mg Q6HP PRN IV 03/01/25 11:15 03/01/25 18:01 4 MG Docusate Sodium 100 mg Q12HR PO 03/01/25 22:00 03/04/25 10:36 100 MG Bisacodyl 5 mg Q12HP PRN PO 03/01/25 11:15 Enoxaparin Sodium 30 mg Q12HR SC 03/01/25 22:00 03/04/25 10:36 30 MG Nitroglycerin 0.4 mg Q5MINP PRN SL 03/01/25 11:15 Acetaminophen 650 mg Q4HP PRN PO 03/01/25 14:30 03/02/25 06:34 650 MG Acetaminophen/ Hydrocodone Bitart 1 tab Q4HP PRN PO 03/01/25 14:30 03/04/25 05:35 1 TAB Pantoprazole Sodium 40 mg DAILY@0600 PO 03/03/25 06:00 03/04/25 05:35 40 MG Patient Own Medication 1 DAILY PO 03/02/25 19:38 03/04/25 10:35 1 Laboratory Results Laboratory Tests 03/03/25 05:19 03/04/25 04:48 Urinalysis Test 02/27/25 10:54 Urine Color Colorless (Yellow) Urine Clarity Clear (Clear) Urine pH 6.5 (5.0-9.0) Urine Specific [place] 1.004 (1.001-1.035) Urine Protein Negative (Negative) Urine Ketones Negative (Negative) Urine Blood Trace /uL (Negative) H Urine Nitrite Negative (Negative) Urine Bilirubin Negative (Negative) Urine Urobilinogen Normal mg/dL (Negative) Urine Leukocyte Esterase Negative /uL (Negative) Urine RBC 1 /hpf (0 - 4) Urine Microscopic WBC < 1 /HPF (0-5) Urine Squamous Epithelial Cells Few /hpf (<5) Urine Bacteria None seen /hpf (None Seen) Urine Glucose Normal mg/dL (Normal) Labs and/or images reviewed: Labs reviewed by me, Image(s) reviewed by me Assessment/Plan Assessment/Plan Covering for Dr. 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 Weinberg on 03-01-25 History of breast cancer continue letrozole GERD Physical therapy ordered Plan discussed with: Patient Date of Service: Mar 04, 2025 Billing Provider: BURAK CULP MD Common Visit Codes: [id number] INP/OBS CARE(HIGH) BURAK CULP MD Mar 04, 2025 11:19
--- NOTE | 2025-03-04 11:25 | DVHDS2 ---
Discharge Summary Date of Admission Mar 01, 2025 at 11:14 Date of Discharge: Mar 04, 2025 Admitting Diagnosis Severe DJD left hip Wounds: Left hip total arthroplasty Labs/Diagnostic Data: Laboratory Results Test 03/04/25 04:48 03/03/25 05:19 02/27/25 10:54 Hemoglobin 11.1 g/dL (12.2-16.2) Hematocrit 31.9 % (36.0-46.0) White Blood Count 9.0 10^3/uL (4.4-10.8) Red Blood Count 3.27 10^6/uL (4.0-5.20) Mean Corpuscular Volume 94.2 fL (80.0-100.0) Mean Corpuscular Hemoglobin 32.3 pg (28.0-32.0) Mean Corpuscular Hemoglobin Concent 34.3 g/dL (32.0-36.0) Red Cell Distribution Width 13.9 % (11.8-14.3) Platelet Count 233 10^3/uL (140-450) Mean Platelet Volume 7.7 fL (6.9-10.8) Neutrophils (%) (Auto) 73.7 % (37.0-80.0) Lymphocytes (%) (Auto) 15.4 % (10.0-50.0) Monocytes (%) (Auto) 10.2 % (0.0-12.0) Eosinophils (%) (Auto) 0.4 % (0.0-7.0) Basophils (%) (Auto) 0.3 % (0.0-2.0) Neutrophils # (Auto) 6.6 10 ^3/uL (1.6-8.6) Lymphocytes # (Auto) 1.4 10 ^3/uL (0.4-5.4) Monocytes # (Auto) 0.9 10 ^3/uL (0-1.3) Eosinophils # (Auto) 0 10 ^3/uL (0-0.8) Basophils # (Auto) 0 10 ^3/uL (0-0.2) Nucleated Red Blood Cells 0.0 % Sodium Level 144 mmol/L (136-145) Potassium Level 4.2 mmol/L (3.5-5.1) Chloride Level 109 mmol/L (98-107) Carbon Dioxide Level 26 mmol/L (20-31) Anion Gap 9 (5-15) Blood Urea Nitrogen 14 mg/dL (9-23) Creatinine 0.78 mg/dL (0.550-1.02) Glomerular Filtration Rate Calc 79 mL/min (>90) BUN/Creatinine Ratio 17.9 (10.0-20.0) Serum Glucose 99 mg/dL (74-106) Calcium Level 9.6 mg/dL (8.7-10.4) Total Bilirubin 0.6 mg/dL (0.2-1.0) Aspartate Amino Transferase (AST) 24 U/L (<34) Alanine Aminotransferase (ALT) 10 U/L (7-40) Alkaline Phosphatase 93 U/L (46-116) Total Protein 6.2 g/dL (5.7-8.2) Albumin 3.9 g/dL (3.2-4.8) Prothrombin Time 10.7 sec (9.3-11.8) Prothrombin Time INR 1.01 (0.9-1.15) Activated Partial Thromboplast Time 26.9 SEC (24.5-34.5) Urine Color Colorless (Yellow) Urine Clarity Clear (Clear) Urine pH 6.5 (5.0-9.0) Urine Specific [place] 1.004 (1.001-1.035) Urine Protein Negative (Negative) Urine Ketones Negative (Negative) Urine Blood Trace /uL (Negative) Urine Nitrite Negative (Negative) Urine Bilirubin Negative (Negative) Urine Urobilinogen Normal mg/dL (Negative) Urine Leukocyte Esterase Negative /uL (Negative) Urine RBC 1 /hpf (0 - 4) Urine Microscopic WBC < 1 /HPF (0-5) Urine Squamous Epithelial Cells Few /hpf (<5) Urine Bacteria None seen /hpf (None Seen) Urine Glucose Normal mg/dL (Normal) Other Laboratory Tests 03/04/25 04:48 03/03/25 05:19 Brief Hx & Hospital Course: 74-year-old female with a previous history of breast cancer GERD had severe DJD left hip and underwent total hip replacement by Dr. Blum. Admitted for pain management and physical therapy. Patient received physical therapy who recommended SNF placement for rehab. Patient and agreed and the patient is being discharged to nursing home facility. Consults/Reason for consult Dr. 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 Weinberg on 03-01-25 History of breast cancer continue letrozole GERD Discharge Disposition: Nursing Home Facility Discharge Instruct/Medications Diet: Regular Activity: Light activity Follow Up/Referral: Follow up with the long term Medications: See list Discharge Statement: "Patient was advised to return to the ER or call 911 if any headaches, dizziness, shortness of breath, chest pain, abdominal pain, bleeding, fevers, or worsening of medical condition. Patient was counseled about treatment plan, medications, possible side effects, patientverbalized understanding. All questions were answered to the best of my ability. 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 Weinberg on 03-01-25 History of breast cancer continue letrozole GERD Date of Service: Mar 04, 2025 Billing Provider: BURAK CULP MD Common Visit Codes: 30148-GBG/OBS DISCH DAY >30min BURAK CULP MD Mar 04, 2025 11:25
[2025-03-04 13:00] VITALS: BP 130/75; PULSE 81; RESP 18; TEMP 96.7; O2SAT 96
[2025-03-04 14:57] LABS: COVID19 ANTIGEN SOFIA FIA NEGATIVE (NEGATIVE)
[2025-03-04 16:43] VITALS: BP 122/74; PULSE 77; RESP 18; TEMP 97.4; O2SAT 97
== END 2025-03-04 18:16 | DRG 470 ==
LOC: SUR 06:31 → OVERFLOW 11:14 → WEST WING 17:06
PROVIDERS: ADMIT Family Medicine; ATTEND Family Medicine
PROC: 0SRB0JA Replacement of Left Hip Joint with Synthetic Substitute, Uncemented, Open Approach (ICD-10-PCS; principal; 2025-03-01 09:13)
DX: M16.12 Unilateral primary osteoarthritis, left hip (principal); Z01.812 Encounter for preprocedural laboratory examination; K21.9 Gastro-esophageal reflux disease without esophagitis; E78.5 Hyperlipidemia, unspecified; Z88.8 Allergy status to other drugs, medicaments and biological substances; Z85.3 Personal history of malignant neoplasm of breast; Z83.3 Family history of diabetes mellitus; Z80.0 Family history of malignant neoplasm of digestive organs; Z79.899 Other long term (current) drug therapy; Z79.811 Long term (current) use of aromatase inhibitors
CPT/HCPCS: 36415; 72170; 73501; 80048; 80053; 81001; 85014; 85018; 85025; 85610; 85730; 86850; 86900; 86901; 87426; 97110; 97116; 97163; 97530; G0378; J0131; J2250; J2405; J2704; J3490

== ENCOUNTER 2025-05-08 07:45 | Emergency (ER) | payer MEDICARE, OTHER ==
[~2025-05-08] VITALS: Ht 167.6 cm; Wt 82.1 kg
--- NOTE | 2025-05-08 07:59 | ECG ---
[facility] Test Date: 2025-05-08 Test Time: 07:58:30 Pat Name: SALVADOR ROSE Department: ED Room: Gender: F Director Of Recreation Therapy: REYES : 1950 Requested By: CUCA COLE Order Number: [id number] Reading MD: Measurements Intervals [place] Rate: 73 P: 59 IN: 153 QRS: 13 QRSD: 101 T: 45 QT: 403 QTc: 444 Interpretive Statements Sinus rhythm Left ventricular hypertrophy Please click the below link to view image of tracing.
--- NOTE | 2025-05-08 08:14 | ED.PDOC ---
Musculoskeletal HPI Comments 75 y/o F, with PMHx of DVT's, HLD, and cancer presents to the ED for CC of left- forearm pain. Patient states, she has been experiencing left-forearm pain following sleeping on her left side yesterday (05/07/25). Patient reports, she had a DVT recently following a left-hip replacement and is concerned symptoms maybe related to a blood clot. At this time patient c/o 5/10 pain to her left- forearm. Patient denies trauma, injury, or fall. No other symptoms or modifying factors are present at this time. Chief Complaint: Upper Extremity Time Seen by MD: 08:00 Primary Care Provider: KINJAL Reviewed Notes: Nurses Notes, Medications, Allergies Allergies: Coded Allergies: Atorvastatin (Verified Allergy, Unknown, 11/28/19) Home Meds Reported Medications Omeprazole (Gnp Omeprazole) 20 Mg Tab, 20 MG PO DAILY, TAB 02/24/25 Multiple Minerals W/ Vitamins (CALCIUM & VITAMIN D3 BONE) Bone Liq, 1 TAB OR DAILY, LIQ 02/24/25 Magnesium Oxide (MAGNESIUM OXIDE) 400 Mg Tab, 250 MG OR DAILY, TAB 02/24/25 Letrozole (Femara) 2.5 Mg Tab, 1 TAB PO DAILY, #30 TAB 11 Refills 08/30/21 Rosuvastatin Calcium (Crestor) 5 Mg Tab, 1 TAB PO DAILY 07/01/13 Information Source: Patient Mode of Arrival: Ambulatory Location: Left Extremity Location: Forearm Timing: Minutes Prehospital treatment: None Severity: Moderate Able to Move Extremity: Yes Pain: Moderate Mechanism: Spontaneous Circumstances: Spontaneous Onset of Symptoms: After Trauma Symptoms: Pain DVT Risk Factors: DVT Last Tetanus: Unknown History of: Hip Operation Associated signs and symptoms: Arm pain Past Medical History PAST MEDICAL HISTORY: Cancer, High Lipids Surgical History: Tonsillectomy Surgical History (Other): left-hip replacement, bilateral mastectomy MULE PACKER History: No Pertinent MULE PACKER History Family History Family History: Reviewed,noncontributory to illness Social History Smoker: Non-Smoker Alcohol: Denies ETOH Use Drugs: Denies Drug Use Lives In: Home Constitutional: denies: chills, diaphoresis, fatigue, fever, malaise, sweats, weakness, others EENTM: denies: blurred vision, double vision, ear bleeding, ear discharge, ear drainage, ear pain, ear ringing, eye pain, eye redness, hearing loss, mouth pain, mouth swelling, nasal discharge, nose bleeding, nose congestion, nose pain, photophobia, tearing, throat pain, throat swelling, voice changes, others Respiratory: denies: cough, hemoptysis, orthopnea, SOB at rest, shortness of breath, SOB with excertion, stridor, wheezing, others Cardiovascular: denies: chest pain, dizzy spells, diaphoresis, Dyspnea on exertion, edema, irregular heart beat, left arm pain, lightheadedness, palpitations, PND, syncope, others Gastrointestinal: denies: abdomen distended, abdominal pain, blood streaked bowels, constipated, diarrhea, dysphagia, difficulty swallowing, hematemesis, melena, nausea, poor appetite, poor fluid intake, rectal bleeding, rectal pain, vomiting, others Genitourinary: denies: abnormal vagina bleeding, burning, dyspareunia, dysuria, flank pain, frequency, hematuria, incontinence, pain, , vagina discharge, urgency, others Neurological: denies: dizziness, fainting, headache, left sided numbness, left sided weakness, numbness, paresthesia, pre-existing deficit, right sided numbness, right sided weakness, seizure, speech problems, tingling, tremors, weakness, others Musculoskeletal: reports: others (left forearm pain); denies: back pain, gout, joint pain, joint swelling, muscle pain, muscle stiffness, neck pain Integumetry: denies: bruises, change in color, change in hair/nails, dryness, laceration, lesions, lumps, rash, wounds, others Allergic/Immunocompromised: denies: Difficulty Healing, Frequent Infections, Hives, Itching, others Hematologic/Lymphatic: denies: anemia, blood clots, easy bleeding, easy bruising, swollen glands, others Endocrine: denies: excessive hunger, excessive sweating, excessive thirst, excessive urination, flushing, intolerance to cold, intolerance to heat, unexplained weight gain, unexplained weight loss, others Psychiatric: denies: anxiety, bipolar disorder, depression, hopeless, panic disorder, schizophrenia, sleepless, suicidal, others All Other Systems: Reviewed and Negative Physical Exam General Appearance: No Apparent Distress HEENT: Normal ENT Inspection, Pharynx Normal, TMs Normal Neck: Full Range of Motion, Non-Tender, Normal, Normal Inspection Respiratory: Chest Non-Tender, Lungs Clear, No Accessory Muscle Use, No Respiratory Distress, Normal Breath Sounds Cardiovascular: No Edema, No JVD, No Murmur, No Gallop, Normal Peripheral Pulses, Regular Rate/Rhythm Breast Exam: Deferred Gastrointestinal: No Organomegaly, Non Tender, No Pulsatile Mass, Normal Bowel Sounds, Soft Genitalia: Deferred Pelvic: Deferred Rectal: Deferred Extremities: No calf tenderness, Normal capillary refill, Non-tender, No pedal edema, Other (The left arm is nontender and has only mild limited range of motion. 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 Was a procedure done?: No EKG EKG : Pulse Rate (adult): 73 [place]: Normal Cardiac Rhythm: NSR Block: None Hypertrophy: LVH ST: Normal Differential Diagnosis EXT Differential Diagnosis: Sprain, Strain, Arthritis, Other (musculoskeletal pain) X-Ray, Labs, Meds, VS Vital Signs Date Time Temp Pulse Resp B/P (MAP) Pulse Ox O2 Delivery O2 Flow Rate FiO2 05/08/25 08:26 98.2 67 17 153/84 (107) 96 98.2 05/08/25 08:26 67 17 96 Room Air 05/08/25 08:26 67 05/08/25 08:25 98.2 05/08/25 07:58 73 05/08/25 07:47 97.8 82 17 184/87 100 97.8 Current Medications Medications (Trade) Dose Ordered Sig/Jane Route Start Time Stop Time Status Last Admin Acetaminophen (Tylenol Tablet) 650 mg ONCE ONCE PO 05/08/25 08:15 05/08/25 08:16 DC 05/08/25 08:25 Ultrasound of the left upper extremities negative for DVT The patient was given acetaminophen 650 mg by mouth for the pain The patient will follow up with the primary care doctor The patient will return to the emergency department's the condition worsens Images Reviewed?: Images reviewed and evaluated by me Time of 1ST Reevaluation: 08:30 Reevaluation 1ST: Unchanged Patient Education/Counseling: Diagnosis, Treatment Family Education/Counseling: No Family Present Departure 1 Departure Time of Disposition: 09:15 Impression: Primary Impression: Left arm pain Disposition: 01 HOME / SELF CARE / HOMELESS Condition: Fair Discharged With: Self Critical Care Note Critical Care Time?: No Stability Stability form required: No Heart Score Heart Score: Heart Score Response (Comments) Value History N/A 0 EKG N/A 0 Age N/A 0 Risk Factors N/A 0 Troponin N/A 0 Total 0 I personally scribed for BRENDEN VALADEZ MD ([email or web address]) on 05/08/25 at 08:14. Electronically submitted by Dorys Jason ([email or web address]). I personally scribed for BRENDEN VALADEZ MD ([email or web address]) on 05/08/25 at 08:14. Electronically submitted by Dorys Jason ([email or web address]). BRENDEN VALADEZ MD May 08, 2025 08:14
[2025-05-08] MEDS: ACETAMINOPHEN 325 MG TAB PO ONE (08:25)
[2025-05-08 08:26] VITALS: BP 153/84; PULSE 67; RESP 17; O2SAT 96
--- NOTE | 2025-05-08 09:03 | DVH ---
CLINICAL HISTORY: pain TECHNIQUE: Color and duplex doppler imagine of the left upper extremity veins and left subclavian vei n was performed. Vessel compression if possible was also performed. COMPARISON: BI LOWER DVT on DOS: 08/31/21 FINDINGS: The left internal jugular, axillary, basilic, cephalic, radial, ulnar, and paired brachial veins are patent and demonstrate normal compressibility and flow. The left subclavian is patent. IMPRESSION: NO SONOGRAPHIC EVIDENCE FOR DEEP VENOUS THROMBOSIS IN THE LEFT UPPER EXTREMITY VEINS.
[2025-05-08 09:21] VITALS: TEMP 98.2
== END 2025-05-08 09:22 | disposition home or self-care (01) ==
LOC: ER 07:45
DX: M79.632 Pain in left forearm (principal); E78.5 Hyperlipidemia, unspecified; Z79.899 Other long term (current) drug therapy; Z96.642 Presence of left artificial hip joint; Z90.13 Acquired absence of bilateral breasts and nipples; Z79.811 Long term (current) use of aromatase inhibitors
CPT/HCPCS: 93005; 93971

== ENCOUNTER 2025-06-01 10:21 | Outpatient (CLI) | payer MEDICARE, OTHER ==
[2025-06-01 10:51] LABS: Hematocrit 35.7 % (36.0-46.0); Hemoglobin 12.0 g/dL (12.2-16.2); Mean Corpuscular Hemoglobin 30.8 pg (28.0-32.0); Mean Corpuscular Volume 91.4 fL (80.0-100.0); Nucleated Red Blood Cells % 0.0 %
[2025-06-01 11:14] LABS: Iron 78.0 ug/dL (50-170)
[2025-06-01 11:17] LABS: Total Iron Binding Capacity 313.0 ug/dL (250-425)
[2025-06-01 11:18] LABS: Alanine Aminotransferase 12 U/L (7-40); Albumin 4.3 g/dL (3.2-4.8); Anion Gap 11 (5-15); BUN/Creatinine Ratio 15.7 (10.0-20.0); Bilirubin, Total 0.6 mg/dL (0.2-1.0); Blood Urea Nitrogen 13 mg/dL (9-23); Calcium 9.8 mg/dL (8.7-10.4); Carbon Dioxide 23 mmol/L (20-31); Glucose 90 mg/dL (74-106); Potassium 3.7 mmol/L (3.5-5.1); Sodium 143 mmol/L (136-145); Total Protein 7.3 g/dL (5.7-8.2)
[2025-06-01 11:20] LABS: Thyroid Stimulating Hormone 2.23 uIU/mL (0.55-4.78)
[2025-06-01 11:22] LABS: Alkaline Phosphatase 140 U/L (46-116); Chloride 109 mmol/L (98-107)
[2025-06-01 11:26] LABS: Ferritin 34.8 ng/mL (10-291)
== END 2025-06-01 17:00 | disposition home or self-care (01) ==
LOC: LAB 10:21
PROVIDERS: ATTEND Internal Medicine
DX: C50.919 Malignant neoplasm of unspecified site of unspecified female breast (principal); M81.8 Other osteoporosis without current pathological fracture; Z51.11 Encounter for antineoplastic chemotherapy
CPT/HCPCS: 36415; 80053; 82306; 82607; 82728; 82746; 83540; 83550; 83615; 84443; 85025; 86300